=== PATIENT | female | born 1965 | race Caucasian/White ===

== ENCOUNTER 2019-10-22 15:06 | Outpatient (CLI) | payer SELFPAY ==
--- NOTE | 2019-10-22 15:12 | MM_ITS ---
WS: [id number] BILATERAL SCREENING DIGITAL MAMMOGRAM WITH CAD HISTORY: SCREENING COMPARISON: 12/24/2016 and 11/29/2015 Bilateral CC and MLO views submitted. Computer aided detection analyzed. Breast composition: There are scattered areas of fibroglandular density. No suspicious masses, microc alcifications or architectural distortion. MM/[place] [id number] IMPRESSION: BI-RADS: 1-Negative FOLLOW UP: 1 Year Follow-up
== END 2019-10-22 15:07 | disposition home or self-care (01) ==
LOC: RADSHAW 15:11
PROVIDERS: PCP Internal Medicine; Visit Provider Internal Medicine
DX: Z12.31 Encounter for screening mammogram for malignant neoplasm of breast (principal)
CPT/HCPCS: 77067

== ENCOUNTER 2020-02-22 16:03 | Emergency (ER) | payer SELFPAY ==
[2020-02-22 16:09] VITALS: BP 193/90; PULSE 122; RESP 16; TEMP 36.2; O2SAT 96; BMI 32.2
--- NOTE | 2020-02-22 18:54 | XR_ITS ---
WS: [id number] Portable AP upright chest, 02/22/2020 portable chest, 03/03/2018. Clinical Data: Altered mental status Comparison: None. Findings: No nodules, masses or effusions are seen. The heart is normal. The pulmonary vascularity is not increased. No pneumonia or pneumothorax is seen. Monitor leads are on the chest wall XR/XR chest 1V portable [id number] Impression: Negative chest.
--- NOTE | 2020-02-22 18:55 | ECG_ITS ---
[facility] Test Date: 2020-02-22 Pat Name: Sruthi Wright Department: Room: Gender: Female Manager Ecommerce: : 1965 Requested By: Ofelia Villeda Order Number: [id number] Marks MD: Reji Espinoza M.D. Measurements Intervals [place] Rate: 100 P: 23 [place]: 148 QRS: -5 QRSD: 109 T: 32 QT: 338 QTc: 437 Interpretive Statements SINUS TACHYCARDIA Compared to ECG 03/04/2018 00:18:12 Sinus rhythm no longer present Electronically Signed On 02-23-2020 10:17:28 MEDICAL TECH by Reji Espinoza M.D. [id number]
--- NOTE | 2020-02-22 18:57 | W.ED.ANXIETY ---
HPI - Anxiety General: Chief Complaint: Anxiety Stated Complaint: Numbness/Emotional/AMS Time Seen by Provider: 02/22/20 18:54 Source: patient Mode of arrival: ambulatory Limitations: no limitations History of Present Illness: HPI narrative: Sruthi is a very nice 54-year-old female who comes in complaining of confusion. Her rtampujg-ks-own is with her who states that the patient has been confused all day and it is progressively getting worse. She has been confused at different times to person, place and time. They have noticed her blood sugars been running elevated today. Patient states she is feeling very upset and emotional. She states she wants to cry all the time but cannot say why. She denies any physical plaints such as chest pain, shortness of breath, back pain, flank pain, headache, neck pain or stiffness or any other focal complaint. Patient was fine and her normal state of health yesterday. Patient has no other complaints at this time. Associated symptoms: Reports confusion; Deny chest pain, chills, diaphoresis, fever(s), headache(s), malaise, nausea, palpitations, syncope or vomiting Review of Systems Const: Denies: fever(s), chills, body aches, fatigue, malaise or diaphoresis Eyes: Denies: change in vision, blurry vision, photophobia, eye discomfort, eye discharge, eye redness or yellow eyes ENMT: Denies: throat pain, odynophagia, hoarseness, swelling of lips/tongue, ear or mastoid pain, ear discharge, change in hearing or nasal discharge Card: Denies: chest pain, palpitations, irregular heart rhythm, edema, lightheadedness, syncope, pre-syncope, dyspnea on exertion or orthopnea Resp: Denies: dyspnea, productive cough, non-productive cough, wheezing, hemoptysis or chest congestion GI: Denies: abdominal pain, nausea, vomiting, hematemesis, coffee ground emesis, heartburn, diarrhea, constipation, GI cramping, hematochezia or melena : Denies: flank pain, dysuria, urinary frequency, urinary urgency or hematuria Musc: Denies: neck pain, back pain, extremity pain, extremity swelling, joint pain, joint swelling, joint redness, joint warmth or joint stiffness Skin/Breast: Denies: rash, pruritus, erythema, skin pain or skin tenderness Neuro: Reports: confusion; Denies: headache(s), numbness in extremities, weakness in extremities, sensory changes, lack of coordination, difficulty walking, dizziness, vertigo, Slurred speech present or seizure-like activity Damián/Lymph: Denies: easy bruising, easy bleeding, petechiae, purpura or enlarged lymph nodes All/Imm: Denies: urticaria, throat swelling, tongue swelling, facial swelling or acute wheezing PFSH ED PFSH: Medical History Chronic low back pain CKD (chronic kidney disease) Depression DM type 2 (diabetes mellitus, type 2) GERD (gastroesophageal reflux disease) Hyperlipidemia Hypertension Osteoarthritis Pseudotumor cerebri Physical Exam Const: COMMON NORMALS: no acute distress, patient oriented x3, no limitations and alert GENERAL APPEARANCE: cooperative HENMT: COMMON NORMALS: normocephalic, atraumatic, external ears normal, EAC's normal and Normal external nose present HEAD & SCALP: normal to inspection, normocephalic and atraumatic FACE & SINUS: normal facial exam and face symmetric NOSE: Normal external nose present and Normal nares present EXTERNAL EAR: Yes external ears normal EXTERNAL AUDITORY CANAL: EAC's normal MOUTH: Normal oral and palatal mucosa present, lip normal and tongue normal Eye: COMMON NORMALS: Equal, round and reactive pupils present and conjunctivae normal GENERAL EYE: appearance normal, both eyes and all related structures ALIGNMENT: Yes alignment normal PERIORBITAL: periorbital findings normal EYELID: eyelids normal CONJUNCTIVA: Yes conjunctivae normal SCLERA: sclerae normal PUPIL: Yes Equal, round and reactive pupils present Neck/C-Spine: COMMON NORMALS: full ROM, no lymphadenopathy, supple, no meningeal signs and no JVD GENERAL: Yes normal visual inspection and Yes trachea midline Chest: COMMONS NORMALS: normal inspection of the chest and normal palpation of entire chest wall Resp: COMMON NORMALS: normal respiratory effort, No retractions, No use of accessory muscles and clear to auscultation bilaterally EFFORT & INSPECTION: Yes able to speak in complete sentences and Yes symmetric chest movement AUSCULTATION: clear to auscultation bilaterally, no crackles, no rales, no rhonchi and no wheezes Cardio: COMMON NORMALS: no JVD, regular rate, regular rhythm, S1 normal heart sound present and S2 normal heart sound present RATE: regular rate RHYTHM: regular rhythm HEART SOUNDS: S1 normal heart sound present, S2 normal heart sound present, no click, no gallops, no murmurs and no rubs GI: COMMON NORMALS: Soft to palpation and No hepatosplenomegaly present PALPATION: Yes Soft to palpation, No Tenderness to palpation present (GI), No Guarding due to palpation present (GI), No Rigid due to palpation, Yes No hepatosplenomegaly present, No Hernia present, No Palpable mass present and No Pulsatile mass present : COMMON NORMALS: Yes no CVA tenderness BLADDER/KIDNEY EXAM: Yes no CVA tenderness EXTERNAL FEMALE EXAM: No Hernia present Back/Pelvis: COMMON NORMALS: no CVA tenderness, thoracic and lumbar spine normal to inspection, no thoracic nor lumbar tenderness and thoraco-lumbar ROM normal Extremity: COMMON NORMALS: normal to inspection, full ROM, capillary refill normal, no joint enlargement, no clubbing, cyanosis or edema and no calf tenderness Neuro: COMMON NORMALS: patient oriented x3, CN's II-XII intact bilaterally, moves all extremities, no focal motor deficits and no sensory deficits noted SENSORIUM/ORIENTATION: Yes alert MENINGEAL SIGNS: Yes no meningeal signs SPEECH: speech normal Psych: COMMON NORMALS: mental status grossly normal, Normal thought process present, cooperative, normal affect, speech normal and activity/motor behavior normal SPEECH: Yes normal speech THOUGHT PROCESS: Normal thought process present Skin: COMMON NORMALS: no rashes or lesions noted, turgor normal, no jaundice, no petechiae and no mottling GENERAL SKIN EXAM: no rashes or lesions noted and turgor normal Procedures Lumbar Puncture Time Out Performed: Yes Patient Position: upright Skin Prep: Povidone-Iodine 1% Local Anesthetic: lidocaine 1% Amount of anesthesia used (mL): 3 Spinal Needle Gauge: 22G Interspace Used: L4-L5 Fluid Initially Obtained: clear Complications: none Course Vital Signs: Vital signs: Vital Signs Temperature 97.2 F L 02/22/20 16:09 Pulse Rate 87 02/23/20 01:09 Respiratory Rate 20 H 02/22/20 19:42 Blood Pressure 148/90 02/23/20 01:09 Pulse Oximetry 96 02/23/20 01:09 MDM - Anxiety MDM Narrative: Medical decision making narrative: Mrs. Wright is a nice 54-year-old female who comes in today with confusion. Infusion consisted of she feeling like she was in a fog . Also consisted of saying things are inappropriate, having a hard time understanding how to perform actions and being confused to place and time according to family. The patient symptoms have resolved while she has been here in the ER. Other than a slightly elevated lactate at 3.2 which I believe is likely due to her Metformin no other cause of infection or issue can be seen. The patient stated she may have had a brief headache earlier today so I performed a spinal tap to evaluate for meningitis or encephalitis but she has no white or red cells on her fluid analysis. CT scan of the head is normal. NIH stroke scale is 0. Patient shows no sign of acute cardiac event. I see no sign of toxicologic issue. Ultimately the patient is feeling better and is back to normal. I reviewed the case with Dr. Grant configuration management analyst for Dr. Rutherofrd and she assures me the patient can be rechecked tomorrow. Patient agrees to return here should her symptoms change or worsen but at this time she is feeling better and would like to go home. On repeat exam the patient has a normal mental status with a GCS of 15. I see no sign of encephalitis, meningitis, stroke, cardiac event, toxicologic, endocrine or other acute life-threatening event to cause her transient mental status changes. I did discuss with the patient and her hfbhzdfq-jw-coh that this still could be something early and if her symptoms return or change in any way she needs to return here immediately and they understand and agree to do so. Imaging Data^: CT Head: Radiologist's impression: [place] [address] CT Scan Report Signed Patient: Sruthi Wright Unit #: [id number] : 1965 Age/Sex: 54 / F ADM Date: 02/22/20 Loc: ER Room/Bed: Attending Dr: Ordering Provider/Ordering MD: Ofelia Mann DO Date of Service: 02/22/20 Procedure(s): CT head wo con* [id number] Accession Number(s): [id number] Report Number: [id number] PROCEDURE INFORMATION: Exam: CT Head Without Contrast Exam date and time: 02/22/2020 7:18 PM Age: 54 years old Clinical indication: Altered mental status/memory loss TECHNIQUE: Imaging protocol: Computed tomography of the head without contrast. Radiation optimization: All CT scans at this facility use at least one of these dose optimization techniques: automated exposure control; mA and/or kV adjustment per patient size (includes targeted exams where dose is matched to clinical indication); or iterative reconstruction. COMPARISON: CT head wo con* [id number] 03/18/2016 6:28 PM RADIATION DOSE METRICS: Total DLP (mGy-cm): 810.16 FINDINGS: Brain: Unremarkable. No hemorrhage. No significant white matter disease. No edema. Cerebral ventricles: No ventriculomegaly. Bones/joints: Unremarkable. No acute fracture. Paranasal sinuses: Visualized sinuses are unremarkable. No fluid levels. Mastoid air cells: Unremarkable as visualized. No mastoid effusion. Soft tissues: Unremarkable. CT/CT head wo con* [id number] IMPRESSION: 1. No acute intracranial abnormality demonstrated. 2. No new abnormality demonstrated, when compared to the prior study. Radiation Dose CTDIVOL = (mGy): DLP = 810.16 (mGy-cm) Dictated By: Milad Das MD Signed By: Milad Das MD Signed Date/Time: 02/22/202014 DD/ 12 CXR: Attestation: I personally reviewed and interpreted this imaging study as follows: My impression: No acute cardiopulmonary findings. EKG Data^: EKG 1: Attestation: I personally reviewed and interpreted this EKG as follows: EKG interpretation date: 02/22/20 EKG interpretation time: 19:28 Interpretation: Head CT 02/22/20 18:56 IMPRESSION: 1. No acute intracranial abnormality demonstrated. 2. No new abnormality demonstrated, when compared to the prior study. Radiation Dose CTDIVOL = (mGy): DLP = 810.16 (mGy-cm) Sinus tachycardia at 100 beats a minute, left axis deviation, borderline LVH, nonspecific anterior precordial lead changes. Findings similar to previous. Other EKG comments: Head CT 02/22/20 18:56 IMPRESSION: 1. No acute intracranial abnormality demonstrated. 2. No new abnormality demonstrated, when compared to the prior study. Radiation Dose CTDIVOL = (mGy): DLP = 810.16 (mGy-cm) EKG 2: Attestation: I personally reviewed and interpreted this EKG as follows: EKG interpretation date: 02/22/20 EKG interpretation time: 22:53 Interpretation: Head CT 02/22/20 18:56 IMPRESSION: 1. No acute intracranial abnormality demonstrated. 2. No new abnormality demonstrated, when compared to the prior study. Radiation Dose CTDIVOL = (mGy): DLP = 810.16 (mGy-cm) Normal sinus rhythm at 83 beats a minute, no blocks, nonspecific interventricular conduction delay, no acute ST-T wave changes. Other EKG comments: Head CT 02/22/20 18:56 IMPRESSION: 1. No acute intracranial abnormality demonstrated. 2. No new abnormality demonstrated, when compared to the prior study. Radiation Dose CTDIVOL = (mGy): DLP = 810.16 (mGy-cm) Lab Data: Attestation: I reviewed the patient's lab results. Labs: Lab Results 02/22/20 02/22/20 02/22/20 Range/Units 19:15 19:15 19:15 WBC 8.3 (4.0-10.0) 10^3/ uL RBC 4.44 (4.1-5.3) 10^6/u L Hgb 12.5 (11.5-15.3) g/dL Hct 39.8 (37.0-47.0) % MCV 89.6 (81-99) fL MCH 28.2 (28.0-34.0) pg MCHC 31.4 (30.0-36.0) g/dL RDW 14.9 (12.1-15.1) % Plt Count 241 (130-400) 10^3/c mm MPV 11.6 H (7.4-10.4) fL Neut % (Auto) 60.3 % Lymph % (Auto) 30.2 % [place] % (Auto) 5.6 % Eos % (Auto) 2.8 % Baso % (Auto) 0.4 % Neut # (Auto) 4.98 (1.8-7.7) 10^3/u L Lymph # (Auto) 2.5 (0.8-4.8) 10^3/u L [place] # (Auto) 0.5 (0.2-0.9) 10^3/u L Eos # (Auto) 0.2 (0.0-0.8) 10^3/u L Baso # (Auto) 0.0 (0.0-0.1) 10^3/u L Nucleated RBC % (a uto) 0 % Nucleated RBCs # 0.0 /100WBC Sodium 141 (136-145) mmol/L Potassium 3.9 (3.5-5.1) mmol/L Chloride 104 (98-107) mmol/L Carbon Dioxide 22 (22-29) mmol/L Anion Gap 18.9 (5-19) BUN 19 (6-20) mg/dL Creatinine 0.6 (0.5-0.9) mg/dL GFR Calculation 104.2 (90-130) mL/min Glucose 241 H (65-115) mg/dL Calculated Osmolal ity 302 H (285-295) mOsm/k g Lactic Acid (0.5-2.2) mmol/L Calcium 9.8 (8.5-10.5) mg/dL Magnesium 1.4 L (1.7-2.3) mg/dL Total Bilirubin 0.2 (0.15-1.2) mg/dL AST 29 (0-32) U/L ALT 29 (0-33) U/L Alkaline Phosphata se 83 (35-105) IU/L Ammonia 27 (11-51) umol/L Troponin T Baselin e (0-10) ng/L Troponin T 120 Min yuhaaviatam (0-10) ng/L Delta Troponin T (0-10) ABS# Total Protein 7.3 (6.6-8.7) g/dL Albumin 4.5 (3.5-5.2) g/dL Globulin 2.8 (1.3-4.6) g/dL TSH 3.00 (0.27-4.20) uIU/ mL Urine Color (Yellow) Urine Appearance (CLEAR) Urine pH (5-7) Ur Specific Gravit y (1.005-1.030) Urine Protein (Negative) Urine Glucose (UA) (Normal) Urine Ketones (Negative) Urine Blood (Negative) Urine Nitrate (Negative) Urine Bilirubin (Negative) Urine Urobilinogen (Negative) mg/dL Ur Leukocyte Telma ase (Negative) Urine RBC (0-2) /hpf Urine WBC (0-5) /hpf Ur Squamous Epith Cells (0-5) /hpf Amorphous Sediment Urine Bacteria (NONE) /hpf CSF Appearance (CLEAR) CSF Color (COLORLESS) CSF WBC (0-5) /uL CSF RBC (0-0) 10^3/uL CSF Mononuclear # Auto (50-90) 10^3/uL CSF Mononuclear WB Cs % (50-90) % CSF Polynuclear WB Cs # (0-10) 10^3/uL CSF Polynuclear WB Cs % (0-10) % CSF Diff Comment CSF Glucose (40-70) mg/dL CSF Lactate mmol/L CSF Total Protein (15-45) mg/dL Ethyl Alcohol < 10 (0-10) mg/dL 02/22/20 02/22/20 02/22/20 Range/Units 19:15 19:15 19:15 WBC (4.0-10.0) 10^3/ uL RBC (4.1-5.3) 10^6/u L Hgb (11.5-15.3) g/dL Hct (37.0-47.0) % MCV (81-99) fL MCH (28.0-34.0) pg MCHC (30.0-36.0) g/dL RDW (12.1-15.1) % Plt Count (130-400) 10^3/c mm MPV (7.4-10.4) fL Neut % (Auto) % Lymph % (Auto) % [place] % (Auto) % Eos % (Auto) % Baso % (Auto) % Neut # (Auto) (1.8-7.7) 10^3/u L Lymph # (Auto) (0.8-4.8) 10^3/u L [place] # (Auto) (0.2-0.9) 10^3/u L Eos # (Auto) (0.0-0.8) 10^3/u L Baso # (Auto) (0.0-0.1) 10^3/u L Nucleated RBC % (a uto) % Nucleated RBCs # /100WBC Sodium (136-145) mmol/L Potassium (3.5-5.1) mmol/L Chloride (98-107) mmol/L Carbon Dioxide (22-29) mmol/L Anion Gap (5-19) BUN (6-20) mg/dL Creatinine (0.5-0.9) mg/dL GFR Calculation (90-130) mL/min Glucose (65-115) mg/dL Calculated Osmolal ity (285-295) mOsm/k g Lactic Acid 3.2 H (0.5-2.2) mmol/L Calcium (8.5-10.5) mg/dL Magnesium (1.7-2.3) mg/dL Total Bilirubin (0.15-1.2) mg/dL AST (0-32) U/L ALT (0-33) U/L Alkaline Phosphata se (35-105) IU/L Ammonia (11-51) umol/L Troponin T Baselin e 9 (0-10) ng/L Troponin T 120 Min yuhaaviatam (0-10) ng/L Delta Troponin T (0-10) ABS# Total Protein (6.6-8.7) g/dL Albumin (3.5-5.2) g/dL Globulin (1.3-4.6) g/dL TSH (0.27-4.20) uIU/ mL Urine Color Yellow (Yellow) Urine Appearance Clear (CLEAR) Urine pH 5 (5-7) Ur Specific Gravit y 1.015 (1.005-1.030) Urine Protein 2+ H (Negative) Urine Glucose (UA) 4+ H (Normal) Urine Ketones Negative (Negative) Urine Blood Neg (Negative) Urine Nitrate Negative (Negative) Urine Bilirubin Neg (Negative) Urine Urobilinogen Norm (Negative) mg/dL Ur Leukocyte Telma ase Negative (Negative) Urine RBC None (0-2) /hpf Urine WBC None (0-5) /hpf Ur Squamous Epith Cells None (0-5) /hpf Amorphous Sediment Not Reportable Urine Bacteria None (NONE) /hpf CSF Appearance (CLEAR) CSF Color (COLORLESS) CSF WBC (0-5) /uL CSF RBC (0-0) 10^3/uL CSF Mononuclear # Auto (50-90) 10^3/uL CSF Mononuclear WB Cs % (50-90) % CSF Polynuclear WB Cs # (0-10) 10^3/uL CSF Polynuclear WB Cs % (0-10) % CSF Diff Comment CSF Glucose (40-70) mg/dL CSF Lactate mmol/L CSF Total Protein (15-45) mg/dL Ethyl Alcohol (0-10) mg/dL 02/22/20 02/22/20 02/22/20 Range/Units 21:00 21:36 23:10 WBC (4.0-10.0) 10^3/ uL RBC (4.1-5.3) 10^6/u L Hgb (11.5-15.3) g/dL Hct (37.0-47.0) % MCV (81-99) fL MCH (28.0-34.0) pg MCHC (30.0-36.0) g/dL RDW (12.1-15.1) % Plt Count (130-400) 10^3/c mm MPV (7.4-10.4) fL Neut % (Auto) % Lymph % (Auto) % [place] % (Auto) % Eos % (Auto) % Baso % (Auto) % Neut # (Auto) (1.8-7.7) 10^3/u L Lymph # (Auto) (0.8-4.8) 10^3/u L [place] # (Auto) (0.2-0.9) 10^3/u L Eos # (Auto) (0.0-0.8) 10^3/u L Baso # (Auto) (0.0-0.1) 10^3/u L Nucleated RBC % (a uto) % Nucleated RBCs # /100WBC Sodium (136-145) mmol/L Potassium (3.5-5.1) mmol/L Chloride (98-107) mmol/L Carbon Dioxide (22-29) mmol/L Anion Gap (5-19) BUN (6-20) mg/dL Creatinine (0.5-0.9) mg/dL GFR Calculation (90-130) mL/min Glucose (65-115) mg/dL Calculated Osmolal ity (285-295) mOsm/k g Lactic Acid 2.1 (0.5-2.2) mmol/L Calcium (8.5-10.5) mg/dL Magnesium (1.7-2.3) mg/dL Total Bilirubin (0.15-1.2) mg/dL AST (0-32) U/L ALT (0-33) U/L Alkaline Phosphata se (35-105) IU/L Ammonia (11-51) umol/L Troponin T Baselin e (0-10) ng/L Troponin T 120 Min yuhaaviatam 9.66 (0-10) ng/L Delta Troponin T 0.66 (0-10) ABS# Total Protein (6.6-8.7) g/dL Albumin (3.5-5.2) g/dL Globulin (1.3-4.6) g/dL TSH (0.27-4.20) uIU/ mL Urine Color (Yellow) Urine Appearance (CLEAR) Urine pH (5-7) Ur Specific Gravit y (1.005-1.030) Urine Protein (Negative) Urine Glucose (UA) (Normal) Urine Ketones (Negative) Urine Blood (Negative) Urine Nitrate (Negative) Urine Bilirubin (Negative) Urine Urobilinogen (Negative) mg/dL Ur Leukocyte Telma ase (Negative) Urine RBC (0-2) /hpf Urine WBC (0-5) /hpf Ur Squamous Epith Cells (0-5) /hpf Amorphous Sediment Urine Bacteria (NONE) /hpf CSF Appearance Clear (CLEAR) CSF Color Colorless (COLORLESS) CSF WBC 0 (0-5) /uL CSF RBC 0 (0-0) 10^3/uL CSF Mononuclear # Auto 0.000 L (50-90) 10^3/uL CSF Mononuclear WB Cs % 0 L (50-90) % CSF Polynuclear WB Cs # 0.000 (0-10) 10^3/uL CSF Polynuclear WB Cs % 0 (0-10) % CSF Diff Comment Yes CSF Glucose 145 H (40-70) mg/dL CSF Lactate 3.2 mmol/L CSF Total Protein 34 (15-45) mg/dL Ethyl Alcohol (0-10) mg/dL Discharge Plan Discharge Patient Disposition: Home Clinical Impression: Altered mental status Qualifiers: Altered mental status type: unspecified Qualified Code(s): R41.82 - Altered mental status, unspecified Condition: Stable Prescriptions: No Action Lantus U-100 Insulin 100 unit/mL Solution 25 unit SUBCUT BEDTIME RF: 0 tizanidine 2 mg tablet 4 mg PO BEDTIME RF: 0 aspirin 325 mg Tablet 325 mg PO DAILY RF: 0 simvastatin 40 mg Tablet 40 mg PO DAILY RF: 0 losartan 25 mg tablet 25 mg PO DAILY RF: 0 gabapentin 300 mg capsule 300 mg PO DAILY RF: 0 fluoxetine 20 mg capsule 20 mg PO DAILY RF: 0 metformin 500 mg tablet extended release 24 hr 500 mg PO BID RF: 0 loratadine 10 mg Tablet 10 mg PO DAILY RF: 0 Complete Multivitamin Tablet 1 tab PO DAILY RF: 0 Vitamin D3 25 mcg (1,000 unit) Tablet 25 mcg PO DAILY RF: 0 Fish Oil 500 mg Capsule 500 mg PO DAILY RF: 0 esomeprazole magnesium 20 mg Tablet,Delayed Release (Dr/Ec) 20 mg PO DAILY RF: 0 Discharge Orders: Discharge Order (Routine); Ordered 02/23/20 Ordered By: Ofelia Mann Referrals: Filiberto Rutherford DO [Primary Care Provider] - 1-3 days Discharge Diet: Usual diet Discharge Activity: Limit activity as instructed Patient Instructions: Altered Mental Status (ED) Activity Restrictions/Additional Instructions: Please return to the ER immediately for any of the signs or symptoms listed on your discharge instruction sheets, worsening/changing of your symptoms, you are not getting better as quickly as expected, or for ANY other cause or concerns. A definitive cause for your confusion has not been determined. Although you are back to normal now your symptoms may return and if they do or you develop any new signs or symptoms please return to the ER immediately for recheck. Be certain to call Dr. Rutherford's office first thing in the morning as I have reviewed your case with Dr. Grant and she assures me that you will be able to be reevaluated by Dr. Rutherford or someone in the office tomorrow. If your symptoms return or worsen before then return to the ER for recheck. Coding Level of Care Code ED Crm System Administrator for Martín Humphreys Exam Comprehensive NIH stroke score NIHSS Level Of Consciousness - 1a: 0 Level Of Consciousness Questions - 1b: Both Correct Level Of Consciousness Commands - 1c: Both Correct Best Gaze - 2: Normal Visual [place]ory - 3: No Visual Loss Facial Palsy - 4: Normal Motor Arm Right - 5: No Drift Motor Arm Left - 5: No Drift Motor Leg Right - 6: No Drift Motor Leg Left - 6: No Drift Limb Ataxia - 7: Absent Sensory - 8: Normal Best Language - 9: No Aphasia Dysarthia - 10: Normal Extinction And Inattention - 11: 0 Score Total Score: 0
[2020-02-22 19:30] LABS: Basophils % 0.4 %; Eosinophils # 0.2 10^3/uL (0.0-0.8); Eosinophils % 2.8 %; Hematocrit 39.8 % (37.0-47.0); Hemoglobin 12.5 g/dL (11.5-15.3); Lymphocytes # 2.5 10^3/uL (0.8-4.8); Lymphocytes % 30.2 %; Mean Corpuscular HGB Conc 31.4 g/dL (30.0-36.0); Mean Corpuscular Hemoglobin 28.2 pg (28.0-34.0); Mean Corpuscular Volume 89.6 fL (81-99); Mean Platelet Volume 11.6 fL (7.4-10.4); Monocytes # 0.5 10^3/uL (0.2-0.9); Monocytes % 5.6 %; Neutrophils # 4.98 10^3/uL (1.8-7.7); Neutrophils % 60.3 %; Nucleated Red Blood Cells % 0 %; Platelet Count 241 10^3/cmm (130-400); Red Blood Count 4.44 10^6/uL (4.1-5.3); Red Cell Distribution Width 14.9 % (12.1-15.1); White Blood Count 8.3 10^3/uL (4.0-10.0)
[2020-02-22 19:42] VITALS: BP 146/90; PULSE 96; RESP 20; O2SAT 97
[2020-02-22] MEDS: sodium chloride 0.9% 1,000 ML 100 ML IV (19:51)
[2020-02-22 19:54] LABS: Protein Urine 2+ (Negative); Specific Gravity, Urine 1.015 (1.005-1.030); Urine Appearance Clear (CLEAR); Urine Color Yellow (Yellow); pH Urine 5 (5-7)
[2020-02-22 19:55] LABS: Bilirubin Urine Neg (Negative); Blood Urine Neg (Negative); Glucose Urine UA 4+ (Normal); Ketones Urine Negative (Negative); Leukocyte Esterase Urine Negative (Negative); Nitrate Urine Negative (Negative); Urobilinogen Urine Norm (Negative)
[2020-02-22 19:56] LABS: Lactic Sepsis W/Reflex 3.2 mmol/L (0.5-2.2)
[2020-02-22 19:57] LABS: Ammonia 27 umol/L (11-51)
[2020-02-22 19:59] LABS: Troponin(5th) Baseline 9 ng/L (0-10)
[2020-02-22 20:09] LABS: Alanine Aminotransferase 29 U/L (0-33); Albumin Level 4.5 g/dL (3.5-5.2); Alkaline Phosphatase 83 IU/L (35-105); Anion Gap 18.9 (5-19); Aspartate Amino Transferase 29 U/L (0-32); Blood Urea Nitrogen 19 mg/dL (6-20); Calcium 9.8 mg/dL (8.5-10.5); Carbon Dioxide 22 mmol/L (22-29); Chloride 104 mmol/L (98-107); Globulin 2.8 g/dL (1.3-4.6); Glomerular Filtration Rate 104.2 mL/min (90-130); Glucose 241 mg/dL (65-115); Magnesium 1.4 mg/dL (1.7-2.3); Osmolality Calculated 302 mOsm/kg (285-295); Potassium 3.9 mmol/L (3.5-5.1); Sodium 141 mmol/L (136-145); Total Bilirubin 0.2 mg/dL (0.15-1.2); Total Protein 7.3 g/dL (6.6-8.7)
[2020-02-22 20:12] LABS: Add Urine Culture? No
[2020-02-22 20:14] LABS: Alcohol Level < 10 mg/dL (0-10)
--- NOTE | 2020-02-22 20:55 | ECG_ITS ---
[facility] Test Date: 2020-02-22 Pat Name: Sruthi Wright Department: Room: Gender: Female Public Transportation Inspector: : 1965 Requested By: Ofelia Villeda Order Number: [id number] Kendrick MD: Reji Espinoza M.D. Measurements Intervals [place] Rate: 83 P: 60 [place]: 185 QRS: 17 QRSD: 114 T: 51 QT: 381 QTc: 449 Interpretive Statements SINUS RHYTHM MODERATE INTRAVENTRICULAR CONDUCTION DELAY [110+ ms QRS DURATION] Compared to ECG 02/22/2020 19:28:42 Intraventricular conduction delay now present Sinus tachycardia no longer present Myocardial infarct finding no longer present Electronically Signed On 02-23-2020 10:20:15 BOOK CUTTER by Reji Espinoza M.D. [id number]
[2020-02-22] MEDS: magnesium sulfate premix 2 GM/50 ML PIGGYBACK IV (20:59)
[2020-02-22 21:00] VITALS: BP 172/91; PULSE 97; O2SAT 97
[2020-02-22] MEDS: LORazepam 2 mg/mL INJ 1 mL 1 MG IVP (21:02)
[2020-02-22 21:17] LABS: Reflex Lactate Order REFLEX LACTIC ORDERD
[2020-02-22 21:25] LABS: Troponin 5 2HR 9.66 ng/L (0-10); Troponin 5 2HR Delta 0.66 ABS# (0-10)
[2020-02-22 21:54] LABS: Red Blood Cell CSF 0 10^3/uL (0-0); White Blood Cell CSF 0 /uL (0-5)
[2020-02-22 22:12] VITALS: BP 152/87; PULSE 89; O2SAT 97
[2020-02-22 22:12] LABS: Mononuclear WBC CSF % 0 % (50-90); Polynuclear WBC CSF % 0 % (0-10)
[2020-02-22 22:15] LABS: Appearance CSF CLEAR (CLEAR); Color CSF COLORLESS (COLORLESS)
[2020-02-22 22:16] LABS: Pathology Referral Yes; RBC Side Within 10% 0; WBC Within 10% 0
[2020-02-22 22:52] LABS: Glucose CSF 145 mg/dL (40-70); Total Protein CSF 34 mg/dL (15-45)
[2020-02-22 22:57] LABS: Lactate CSF 3.2 mmol/L
[2020-02-22] MEDS: sodium chloride 0.9% 1,000 ML 999 ML IV (23:22)
[2020-02-22 23:23] VITALS: BP 158/91; PULSE 90; O2SAT 96
[2020-02-23 00:10] LABS: Lactic Sepsis W/Reflex 2.1 mmol/L (0.5-2.2)
[2020-02-23 01:09] VITALS: BP 148/90; PULSE 87; O2SAT 96
[2020-02-23 06:26] LABS: Amphetamines Screen Urine Negative (Negative); Barbiturates Screen Urine Negative (Negative); Benzodiazepines Screen Urine Negative (Negative); Cocaine Screen Urine Negative (Negative); Opiate Screen Urine Negative (Negative); PCP Screen Urine Negative (Negative); THC Screen Urine Negative (Negative)
[2020-02-26 15:03] LABS: HSV 1 DNA NOT DETECTED; HSV 2 DNA NOT DETECTED; HSV Source CEREBROSPINAL FLUID
== END 2020-02-23 01:14 | disposition home or self-care (01) ==
PROVIDERS: Emergency Provider Emergency Medicine; PCP Internal Medicine
DX: R41.82 Altered mental status, unspecified (principal); Z79.4 Long term (current) use of insulin; Z79.82 Long term (current) use of aspirin; E11.9 Type 2 diabetes mellitus without complications; E78.5 Hyperlipidemia, unspecified; I10 Essential (primary) hypertension
CPT/HCPCS: 12345; 62270; 70450; 71045; 80053; 80306; 80307; 80500; 81001; 82140; 82945; 83605; 83735; 84157; 84443; 84484; 85025; 87040; 87070; 87075; 87205; 87530; 89050; 93005; 96361; 96365; 96375; 99283; 99284; J2060; J3475; J7030

== ENCOUNTER 2020-02-25 12:07 | Emergency (ER) | payer SELFPAY ==
[2020-02-25 12:21] VITALS: BP 163/76; PULSE 101; RESP 18; TEMP 37; O2SAT 96; BMI 32.5
[2020-02-25] MEDS: diphenhydrAMINE 50 mg/mL SDV 1mL IVP (15:57)
[2020-02-25] MEDS: ketorolac 30 mg/mL INJ 15 MG IVP (15:59)
[2020-02-25 16:05] VITALS: RESP 16; O2SAT 96
[2020-02-25] MEDS: morphine 4 mg/mL SDV 1 mL IVP (16:05)
[2020-02-25] MEDS: sodium chloride 0.9% 1,000 ML 999 ML IV (16:06)
--- NOTE | 2020-02-25 16:48 | ED_ITS ---
Documented by User: Donna Reyna 02/26/20 07:10 HPI - Headache General: Chief Complaint: Headache Stated Complaint: HEADACHE Time Seen by Provider: 02/25/20 13:45 Source: patient Mode of arrival: ambulatory Limitations: no limitations History of Present Illness: MD elicited complaint: headache Onset (ago): day(s) (1) Onset description: gradually Location: diffuse Severity: moderate Quality & Timing: throbbing and squeezing Exacerbating factors: none Relieving factors: nothing Context: other (Pt had lumbar puncture yesterday started after that. Pt states this happens when she has had LPs in the past) Associated symptoms: Reports lightheadedness, nausea, photophobia and sound sensitivity; Deny chest pain, confusion, cough, diaphoresis, eye pain, eye redness, fever(s), loss of vision, malaise, neck stiffness, numbness, paresthesias, pre-syncope, rash, seizures, short of breath, syncope, vomiting or weakness Treatments prior to arrival: none Review of Systems Const: Denies: fever(s), malaise or diaphoresis Card: Reports: lightheadedness; Denies: chest pain, syncope or pre-syncope Resp: Denies: dyspnea, productive cough or wheezing GI: Reports: nausea; Denies: abdominal pain or vomiting Skin/Breast: Denies: rash Neuro: Reports: headache(s) and dizziness; Denies: numbness in extremities, weakness in extremities, sensory changes, lack of coordination, difficulty walking, frequent falls, vertigo, confusion, behavioral changes, Slurred speech present, difficulty communicating thoughts, seizure-like activity, involuntary movements or restless legs Psych: Denies: suicidal ideation or homicidal ideation [facility] ED PFSH: Medical History Chronic low back pain CKD (chronic kidney disease) Depression DM type 2 (diabetes mellitus, type 2) GERD (gastroesophageal reflux disease) Hyperlipidemia Hypertension Osteoarthritis Pseudotumor cerebri Physical Exam Const: COMMON NORMALS: no acute distress, patient oriented x3, no limitations and alert ORIENTATION/CONSCIOUSNESS: Yes oriented to person, Yes oriented to place and Yes oriented to time HENMT: COMMON NORMALS: normocephalic, atraumatic, hearing grossly normal bilaterally and Normal external nose present HEAD & SCALP: normal to inspection, normocephalic and atraumatic FACE & SINUS: normal facial exam, sinuses nontender and face symmetric NOSE: Normal external nose present MOUTH: Normal oral and palatal mucosa present, lip normal and tongue normal THROAT: posterior oropharynx normal Eye: COMMON NORMALS: Equal, round and reactive pupils present, EOMs intact bilaterally, conjunctivae normal, no scleral icterus, no papilledema and normal visual haskins by confrontation GENERAL EYE: appearance normal, both eyes and all related structures and normal light reflex CONJUNCTIVA: Yes conjunctivae normal PUPIL: Yes Equal, round and reactive pupils present DIRECT OPHTHALMOSCOPY: Yes normal light reflex, Yes no papilledema and Yes photophobia Neck/C-Spine: COMMON NORMALS: full ROM, no lymphadenopathy, supple, no meningeal signs and no JVD Lymph: LYMPHATIC: no lymphadenopathy noted Chest: COMMONS NORMALS: normal inspection of the chest Resp: COMMON NORMALS: normal respiratory effort, No retractions, No use of accessory muscles and clear to auscultation bilaterally AUSCULTATION: clear to auscultation bilaterally Cardio: COMMON NORMALS: no JVD, regular rate and regular rhythm RATE: regular rate RHYTHM: regular rhythm GI: COMMON NORMALS: Normal to inspection, nondistended, normoactive bowel sounds present, Soft to palpation and non-tender PALPATION: Yes Soft to palpation : COMMON NORMALS: Yes no CVA tenderness BLADDER/KIDNEY EXAM: Yes no CVA tenderness Back/Pelvis: COMMON NORMALS: no CVA tenderness, thoracic and lumbar spine normal to inspection, no thoracic nor lumbar tenderness and thoraco-lumbar ROM normal Extremity: COMMON NORMALS: normal to inspection, full ROM and capillary refill normal Neuro: KRISS COMA SCALE: document GCS findings Kriss coma scale eye opening: Spontaneous [place] coma scale verbal response: Orientated [place] coma scale motor response: Obey commands Kriss coma scale total score: 15 COMMON NORMALS: patient oriented x3, CN's II-XII intact bilaterally, moves all extremities, no focal motor deficits and no sensory deficits noted SENSORIUM/ORIENTATION: Yes alert, Yes oriented to person, Yes oriented to place and Yes oriented to time MENINGEAL SIGNS: Yes no meningeal signs SPEECH: speech normal GAIT: Yes Normal gait present Psych: COMMON NORMALS: mental status grossly normal, Normal thought process present, cooperative, normal affect and speech normal APPEARANCE: Yes grossly normal ATTITUDE: Yes calm ACTIVITY/MOTOR BEHAVIOR: Yes appropriate eye contact SPEECH: Yes normal speech THOUGHT PROCESS: Normal thought process present Skin: COMMON NORMALS: no rashes or lesions noted, no wounds, turgor normal and no jaundice GENERAL SKIN EXAM: no rashes or lesions noted and turgor normal Course ED course: Pt has been given pain meds and IV fluids at this time. Pt is at bedside eating. Care was transferred to Cricket Anderson at 1700 02/25/2020 Vital Signs: Vital signs: Vital Signs Temperature 98.6 F 02/25/20 12:21 Pulse Rate 82 02/25/20 18:04 Respiratory Rate 18 02/25/20 18:04 Blood Pressure 153/86 02/25/20 18:04 Pulse Oximetry 96 02/25/20 18:04 Discharge Plan Discharge Patient Disposition: Home Clinical Impression: Headache Qualifiers: Headache type: unspecified Headache chronicity pattern: unspecified pattern Intractability: not intractable Qualified Code(s): R51.9 - Headache, unspecified Condition: Stable Prescriptions: New hydrocodone-acetaminophen 5-325 mg tablet 1 tab PO Q6H PRN (Reason: pain) Qty: 6 RF: 0 No Action Benadryl 1 - 2 cap PO PRN RF: 0 Lantus U-100 Insulin 100 unit/mL Solution 25 unit SUBCUT BEDTIME RF: 0 tizanidine 2 mg tablet 2 mg PO QID PRN (Reason: Muscle Spasm) RF: 0 aspirin 325 mg Tablet 325 mg PO DAILY RF: 0 simvastatin 40 mg Tablet 40 mg PO DAILY RF: 0 losartan 25 mg tablet 25 mg PO DAILY RF: 0 gabapentin 300 mg capsule 300 mg PO BID RF: 0 fluoxetine 20 mg capsule 20 mg PO DAILY RF: 0 metformin 500 mg tablet extended release 24 hr 1,000 mg PO BID RF: 0 loratadine 10 mg Tablet 10 mg PO BEDTIME RF: 0 Complete Multivitamin Tablet 1 tab PO DAILY RF: 0 cholecalciferol (vitamin D3) [Vitamin D3] 25 mcg (1,000 unit) Tablet 25 mcg PO DAILY RF: 0 Fish Oil 500 mg Capsule 500 mg PO QPM RF: 0 esomeprazole magnesium 20 mg Tablet,Delayed Release (Dr/Ec) 20 mg PO DAILY RF: 0 Discharge Orders: Discharge Order (Routine); Ordered 02/25/20 Ordered By: Kwame Anderson Referrals: Filiberto Rutherford DO [Primary Care Provider] - Discharge Diet: Usual diet Discharge Activity: Increase activity as tolerated Patient Instructions: Acute Headache (ED) Activity Restrictions/Additional Instructions: Healthy diet and exercise. Drink plenty of water. If headache returns play down flat consume plenty of caffeine and use hydrocodone for breakthrough pain. Follow-up with primary care as needed. Return to the emergency department for uncontrolled headache. 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 awaiting medication evaluation. Plan to dc after medication treatment results. wjw Vital Signs: Vital signs: Vital Signs Temperature 98.6 F 02/25/20 12:21 Pulse Rate 82 02/25/20 18:04 Respiratory Rate 18 02/25/20 18:04 Blood Pressure 153/86 02/25/20 18:04 Pulse Oximetry 96 02/25/20 18:04 MDM - Headache MDM Narrative: Medical decision making narrative: Patient had a lumbar puncture approximately 2 days ago, comes in for persistent headache that she was unable to get under control at home. On exam patient no focal neural deficits. Patient appeared well. Patient appeared in moderate pain. Patient was seen by Donna Reyna and I received patient from her on her end of shift. Patient was treated with a headache cocktail of medications and fluid. Patient had improvement of the headache. Patient was discharged home with recommendations for follow-up or return to the emergency department. Patient reported understanding. Discharge Plan Discharge Patient Disposition: Home Clinical Impression: Headache Qualifiers: Headache type: unspecified Headache chronicity pattern: unspecified pattern Intractability: not intractable Qualified Code(s): R51.9 - Headache, unspecified Condition: Stable Prescriptions: New hydrocodone-acetaminophen 5-325 mg tablet 1 tab PO Q6H PRN (Reason: pain) Qty: 6 RF: 0 No Action Benadryl 1 - 2 cap PO PRN RF: 0 Lantus U-100 Insulin 100 unit/mL Solution 25 unit SUBCUT BEDTIME RF: 0 tizanidine 2 mg tablet 2 mg PO QID PRN (Reason: Muscle Spasm) RF: 0 aspirin 325 mg Tablet 325 mg PO DAILY RF: 0 simvastatin 40 mg Tablet 40 mg PO DAILY RF: 0 losartan 25 mg tablet 25 mg PO DAILY RF: 0 gabapentin 300 mg capsule 300 mg PO BID RF: 0 fluoxetine 20 mg capsule 20 mg PO DAILY RF: 0 metformin 500 mg tablet extended release 24 hr 1,000 mg PO BID RF: 0 loratadine 10 mg Tablet 10 mg PO BEDTIME RF: 0 Complete Multivitamin Tablet 1 tab PO DAILY RF: 0 cholecalciferol (vitamin D3) [Vitamin D3] 25 mcg (1,000 unit) Tablet 25 mcg PO DAILY RF: 0 Fish Oil 500 mg Capsule 500 mg PO QPM RF: 0 esomeprazole magnesium 20 mg Tablet,Delayed Release (Dr/Ec) 20 mg PO DAILY RF: 0 Discharge Orders: Discharge Order (Routine); Ordered 02/25/20 Ordered By: Kwame Anderson Referrals: Filiberto Rutherford DO [Primary Care Provider] - Discharge Diet: Usual diet Discharge Activity: Increase activity as tolerated Patient Instructions: Acute Headache (ED) Activity Restrictions/Additional Instructions: Healthy diet and exercise. Drink plenty of water. If headache returns play down flat consume plenty of caffeine and use hydrocodone for breakthrough pain. Follow-up with primary care as needed. Return to the emergency department for uncontrolled headache. 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
[2020-02-25 17:29] VITALS: BP 152/80; PULSE 83; O2SAT 96
[2020-02-25 18:04] VITALS: BP 153/86; PULSE 82; RESP 18; O2SAT 96
== END 2020-02-25 18:07 | disposition home or self-care (01) ==
PROVIDERS: Emergency Provider Nurse Practitioner Family; PCP Internal Medicine
DX: R51.9 Headache, unspecified (principal); Z79.4 Long term (current) use of insulin; Z79.82 Long term (current) use of aspirin; E11.9 Type 2 diabetes mellitus without complications; E78.5 Hyperlipidemia, unspecified; I10 Essential (primary) hypertension
CPT/HCPCS: 12345; 96361; 96374; 96375; 99283; J1200; J1885; J2270; J7030

== ENCOUNTER 2020-02-27 12:50 | Emergency (ER) | payer SELFPAY ==
[2020-02-27 12:54] VITALS: BP 156/79; PULSE 101; RESP 18; TEMP 36.5; O2SAT 98; BMI 32.5
--- NOTE | 2020-02-27 13:55 | ECG_ITS ---
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 Measurements Intervals [place] Rate: 98 P: 24 NE: 169 QRS: -11 QRSD: 95 T: 40 QT: 337 QTc: 432 Interpretive Statements SINUS RHYTHM MODERATE VOLTAGE CRITERIA FOR LVH, CONSIDER NORMAL VARIANT [MEETS CRITERIA IN ONE OF: R(aVL), S(V1), R(V5), R(V5/V6)+S(V1)] POSSIBLE ANTERIOR MYOCARDIAL INFARCTION , OF INDETERMINATE AGE [30 ms Q WAVE IN V3/V4, OR R < 0.2 mV IN V4] Compared to ECG 02/22/2020 22:53:38 Myocardial infarct finding now present Intraventricular conduction delay no longer present Electronically Signed On 02-27-2020 21:15:21 CEMENTER HELPER by Yecenia Talbot M.D. [email or web address]
--- NOTE | 2020-02-27 13:55 | XRR_ITS ---
PROCEDURE INFORMATION: Exam: XR Chest, 1 View Exam date and time: 02/27/2020 1:58 PM Age: 54 years old Clinical indication: Chest pain; Type not specified; Additional info: Chest pain, weakness TECHNIQUE: Imaging protocol: XR of the chest Views: 1 view. COMPARISON: CR XR chest 1V portable [id number] 02/22/2020 7:25 PM FINDINGS: Lungs: Unremarkable. No consolidation. Pleural space: Unremarkable. No pleural effusion. No pneumothorax. Heart/Mediastinum: Unremarkable. No cardiomegaly. Bones/joints: Unremarkable. XR/XR chest 1V portable [id number] IMPRESSION: No acute findings. No change from prior x-ray.
[2020-02-27 14:09] LABS: Glucose Urine UA 4+ (Normal); Ketones Urine Negative (Negative); Protein Urine 3+ (Negative); Urine Appearance Clear (CLEAR); Urine Color Colorless (Yellow); pH Urine 5 (5-7)
[2020-02-27 14:10] LABS: Add Urine Culture? No; Bacteria Urine TRACE /hpf; Bilirubin Urine Neg (Negative); Blood Urine Neg (Negative); Leukocyte Esterase Urine Negative (Negative); Nitrate Urine Negative (Negative); Squamous Epithelial Cell Urine RARE /hpf (0-5); Urobilinogen Urine Norm (Negative); WBC Urine RARE /hpf (0-5)
--- NOTE | 2020-02-27 14:16 | MRR_ITS ---
PROCEDURE INFORMATION: Exam: MR Head Without Contrast Exam date and time: 02/27/2020 3:55 PM Age: 54 years old Clinical indication: Pain; Headache; Additional info: AMS, HTN eval for rpls TECHNIQUE: Imaging protocol: MR of the head without contrast. COMPARISON: CT head wo con* [id number] 02/22/2020 7:32 PM FINDINGS: Brain: There are few punctate hyperintense foci in the white matter. DWI demonstrates no evidence of acute infarct. No hemorrhage or extra-axial collection. No evidence of cerebral edema to indicate . SWI demonstrates no evidence of hemorrhage. There are no abnormal flow voids. Cerebral ventricles: There is no hydrocephalus. Bones/joints: Unremarkable. Paranasal sinuses: Mild ethmoid sinus mucosal thickening.. No acute sinusitis. Mastoid air cells: Normal as visualized. No mastoid effusion. Orbits: Unremarkable. Soft tissues: Unremarkable. MR/MR head wo con* [id number] IMPRESSION: 1. There are few punctate hyperintense foci within the white matter. This is nonspecific but most likely to represent minor chronic microvascular disease. 2. No acute intracranial lesion or injury. No evidence of RPLS.
[2020-02-27 14:18] LABS: Basophils % 0.5 %; Eosinophils # 0.2 10^3/uL (0.0-0.8); Eosinophils % 3.5 %; Hematocrit 39.1 % (37.0-47.0); Hemoglobin 12.3 g/dL (11.5-15.3); Lymphocytes # 1.6 10^3/uL (0.8-4.8); Lymphocytes % 27.2 %; Mean Corpuscular HGB Conc 31.5 g/dL (30.0-36.0); Mean Corpuscular Hemoglobin 28.5 pg (28.0-34.0); Mean Corpuscular Volume 90.5 fL (81-99); Mean Platelet Volume 11.8 fL (7.4-10.4); Monocytes # 0.4 10^3/uL (0.2-0.9); Monocytes % 6.7 %; Neutrophils # 3.69 10^3/uL (1.8-7.7); Neutrophils % 61.4 %; Nucleated Red Blood Cells % 0 %; Platelet Count 215 10^3/cmm (130-400); Red Blood Count 4.32 10^6/uL (4.1-5.3); Red Cell Distribution Width 15.1 % (12.1-15.1)
--- NOTE | 2020-02-27 14:31 | PC.NURSE ---
Read and agree with assessment.
[2020-02-27 14:51] LABS: Troponin(5th) Baseline 9 ng/L (0-10)
[2020-02-27 14:55] LABS: INR 0.93 (0.8-1.2)
[2020-02-27 14:58] LABS: Alanine Aminotransferase 27 U/L (0-33); Albumin Level 4.5 g/dL (3.5-5.2); Alkaline Phosphatase 75 IU/L (35-105); Anion Gap 20.4 (5-19); Aspartate Amino Transferase 25 U/L (0-32); Blood Urea Nitrogen 17 mg/dL (6-20); Calcium 9.4 mg/dL (8.5-10.5); Carbon Dioxide 21 mmol/L (22-29); Chloride 103 mmol/L (98-107); Creatine Phosphokinase 61 U/L (26-192); Globulin 2.2 g/dL (1.3-4.6); Glomerular Filtration Rate 74.7 mL/min (90-130); Glucose 311 mg/dL (65-115); Lipase 98 U/L (13-60); NT Pro B Type Natriuretic Pept 6 pg/mL (0-125); Osmolality Calculated 303 mOsm/kg (285-295); Potassium 4.4 mmol/L (3.5-5.1); Sodium 140 mmol/L (136-145); Total Bilirubin 0.3 mg/dL (0.15-1.2); Total Protein 6.7 g/dL (6.6-8.7)
[2020-02-27] MEDS: LORazepam 2 mg/mL INJ 1 mL 1 MG IVP (15:24)
--- NOTE | 2020-02-27 15:27 | PC.NURSE ---
Patient up and walking to restroom.
--- NOTE | 2020-02-27 15:31 | PC.NURSE ---
Patient back to room.
--- NOTE | 2020-02-27 15:56 | ED_ITS ---
HPI - Neuro Symptoms/Deficit General: Chief Complaint: Neuro Symptoms/Deficit Stated Complaint: CONFUSION, SOMETHING WRONG WITH HER MIND PERFAMILY Time Seen by Provider: 02/27/20 13:30 History of Present Illness: HPI Narrative: This patient is a 54-year-old fem stefanie who presents today with altered mental status and confusion. She was initially seen here on the with the same symptoms. She had a very thorough work-up at that time including a CT of her head and a lumbar puncture. No abnormalities were found other than a slightly elevated lactate level. She was discharged with instructions to follow-up with her doctor. She did see her doctor on Friday, Dr. Rutherford. According to the patient's hqegcyur-nb-uqh he told her that he thought it was a combination of her high blood sugar, high blood pressure and high stress levels. The patient says that she does not feel like she is stressed. He apparently did not change any of her medications when she went home. On Friday she was suffering from a bad headache which she felt was related to the lumbar puncture. She called the office again and was instructed to come to the ER. She was treated symptomatically and felt better and then discharged home again. Since then her zvnncncr-zu-akr says she has gotten worse. She seems more confused and weak today. The dbzlmfwy-xb-mcm says that the patient has been having trouble word finding, reading and understanding things, states that she has been seeing things. The patient agrees with these statements. She also continues to have a mild headache. Another symptom that seems to be relatively new today is a discomfort in her jaw and throat. She said that comes and goes but has been present this morning. Fvyfcsbl-co-jnw said that she almost fell this morning because she got so weak. Her xislqcyn-gb-dtw caught her before she did fall. The patient says that when she stands up she feels weak and like she is going to pass out. She has not had any recent illnesses or fevers. She has been monitoring her blood pressure at home and it seems to go up and down between about 140 and 180 systolic. Her blood sugars also have been high between about 200 and 300. She denies any urinary symptoms. She denies any change in bowel movements. Appetite has been okay. When asked in detail about the things that she is seeing she says that she thinks that she is misinterpreting shapes. She gives as an example that the way a wheelchair was sitting looked like eyes to her and she had to get up and move it. She tells me that she has a history of pseudotumor and has had to have spinal taps in the past. She denies any history of heart disease or lung disease. She does have problems with her kidneys. Onset (ago): day(s) (5) Timing confirmed by: family member Location: altered History of same: No Severity: moderate Quality: weak Relieving factors: none Exacerbating factors: none Context: gradual onset On Anticoagulants: No Associated symptoms: Reports chest pain (Pain in her throat area), diaphoresis, headache(s), malaise, short of breath, syncope (Near syncope) and weakness; Deny nausea or vomiting Treatments Prior to Arrival: none Review of Systems General: Reports: 10 or more systems reviewed and unremarkable except in HPI and below Const: Reports: malaise and diaphoresis Eyes: Denies: change in vision ENMT: Denies: odynophagia Card: Reports: chest pain (Pain in her throat area) Resp: Reports: dyspnea; Denies: productive cough or non-productive cough GI: Denies: abdominal pain, nausea or vomiting : Denies: flank pain or difficulty voiding Musc: Denies: neck pain or back pain Skin/Breast: Denies: rash Neuro: Reports: headache(s) Damián/Lymph: Denies: easy bruising or easy bleeding [facility] ED PFSH: Medical History Chronic low back pain CKD (chronic kidney disease) Depression DM type 2 (diabetes mellitus, type 2) GERD (gastroesophageal reflux disease) Hyperlipidemia Hypertension Osteoarthritis Pseudotumor cerebri Physical Exam Const: COMMON NORMALS: no acute distress, patient oriented x3, no limitations and alert GENERAL APPEARANCE: cooperative and comfortable HENMT: HEAD & SCALP: normal to inspection FACE & SINUS: normal facial exam Eye: GENERAL EYE: appearance normal, both eyes and all related structures Neck/C-Spine: COMMON NORMALS: supple, no meningeal signs and no JVD Chest: COMMONS NORMALS: normal inspection of the chest Resp: COMMON NORMALS: normal respiratory effort, No use of accessory muscles and clear to auscultation bilaterally AUSCULTATION: clear to auscultation bilaterally Cardio: COMMON NORMALS: no JVD, regular rate, regular rhythm and No murmurs present (Cardio) RATE: regular rate RHYTHM: regular rhythm GI: COMMON NORMALS: Normal to inspection, nondistended, normoactive bowel sounds present, Soft to palpation and non-tender INSPECTION: Yes normal to inspection AUSCULTATION: Yes normoactive bowel sounds PALPATION: Yes Soft to palpation Back/Pelvis: COMMON NORMALS: thoracic and lumbar spine normal to inspection Extremity: COMMON NORMALS: normal to inspection Neuro: COMMON NORMALS: patient oriented x3, moves all extremities, no focal motor deficits and no sensory deficits noted SENSORIUM/ORIENTATION: Yes alert MENINGEAL SIGNS: Yes no meningeal signs CRANIAL NERVES: Yes CN normal except as noted SPEECH: speech normal GAIT: Yes Normal gait present MOTOR EXAM: 5/5 motor strength present throughout Psych: COMMON NORMALS: mental status grossly normal, cooperative and normal affect Skin: COMMON NORMALS: no rashes or lesions noted and turgor normal GENERAL SKIN EXAM: no rashes or lesions noted and turgor normal Course ED course: This patient was stable throughout her ED stay. Her mental status and neuro exam remained unchanged. Her work-up was totally unremarkable again. Her blood pressure was elevated at times but not outrageously so. Her blood sugar was elevated as well but it sounds like that is not unusual at all for her. Although I cannot find a specific cause for her symptoms I do not see anything that would pose a danger to her and I feel like she is safe to go home for an outpatient work-up. She and her ygyhmcpx-vm-gpf are are both frustrated that no one has been able to find out what is wrong with her. They are interested in getting a second opinion . I reviewed the prior notes from her ER visits including the spinal tap results. She is also seeing her own primary care doctor. I suggested neurology for follow-up and they do not like Dr. Wade I gave her referral for a neurologist in [place]. They also asked for a note for work as the patient just recently started a new job. We discussed return precautions and plan for outpatient follow-up. Vital Signs: Vital signs: Vital Signs Temperature 97.7 F 02/27/20 12:54 Pulse Rate 110 H 02/27/20 18:30 Respiratory Rate 16 02/27/20 18:30 Blood Pressure 143/81 02/27/20 18:30 Pulse Oximetry 97 02/27/20 16:30 MDM - Neuro Symptoms/Deficit Lab Data: Labs: Lab Results 02/27/20 02/27/20 02/27/20 Range/Units 13:06 13:06 13:45 WBC 6.0 (4.0-10.0) 10^3/ uL RBC 4.32 (4.1-5.3) 10^6/u L Hgb 12.3 (11.5-15.3) g/dL Hct 39.1 (37.0-47.0) % MCV 90.5 (81-99) fL MCH 28.5 (28.0-34.0) pg MCHC 31.5 (30.0-36.0) g/dL RDW 15.1 (12.1-15.1) % Plt Count 215 (130-400) 10^3/c mm MPV 11.8 H (7.4-10.4) fL Neut % (Auto) 61.4 % Lymph % (Auto) 27.2 % [place] % (Auto) 6.7 % Eos % (Auto) 3.5 % Baso % (Auto) 0.5 % Neut # (Auto) 3.69 (1.8-7.7) 10^3/u L Lymph # (Auto) 1.6 (0.8-4.8) 10^3/u L [place] # (Auto) 0.4 (0.2-0.9) 10^3/u L Eos # (Auto) 0.2 (0.0-0.8) 10^3/u L Baso # (Auto) 0.0 (0.0-0.1) 10^3/u L Nucleated RBC % (a uto) 0 % Nucleated RBCs # 0.0 /100WBC ESR (0-15) mm/hr PT (12.1-14.9) SECO NDS INR (0.8-1.2) Sodium (136-145) mmol/L Potassium (3.5-5.1) mmol/L Chloride (98-107) mmol/L Carbon Dioxide (22-29) mmol/L Anion Gap (5-19) BUN (6-20) mg/dL Creatinine (0.5-0.9) mg/dL GFR Calculation (90-130) mL/min Glucose (65-115) mg/dL Calculated Osmolal ity (285-295) mOsm/k g Calcium (8.5-10.5) mg/dL Total Bilirubin (0.15-1.2) mg/dL AST (0-32) U/L ALT (0-33) U/L Alkaline Phosphata se (35-105) IU/L Creatine Kinase (26-192) U/L Troponin T Baselin e (0-10) ng/L Troponin T 120 Min maximino (0-10) ng/L Delta Troponin T (0-10) ABS# C-Reactive Protein (0.0-4.9) mg/L NT-Pro-B Natriuret Pep (0-125) pg/mL Total Protein (6.6-8.7) g/dL Albumin (3.5-5.2) g/dL Globulin (1.3-4.6) g/dL Lipase (13-60) U/L Urine Color Colorless (Yellow) Urine Appearance Clear (CLEAR) Urine pH 5 (5-7) Ur Specific Gravit y 1.010 (1.005-1.030) Urine Protein 3+ H (Negative) Urine Glucose (UA) 4+ H (Normal) Urine Ketones Negative (Negative) Urine Blood Neg (Negative) Urine Nitrate Negative (Negative) Urine Bilirubin Neg (Negative) Urine Urobilinogen Norm (Negative) mg/dL Ur Leukocyte Telma ase Negative (Negative) Urine RBC None (0-2) /hpf Urine WBC Rare (0-5) /hpf Ur Squamous Epith Cells Rare (0-5) /hpf Amorphous Sediment Not Reportable Urine Bacteria Trace (NONE) /hpf Salicylates (3-10) mg/dL Urine Opiates Scre en Negative (Negative) ng/mL Acetaminophen (10-30) ug/mL Ur Barbiturates Sc reen Negative (Negative) ng/mL Ur Phencyclidine S crn Negative (Negative) ng/mL Ur Amphetamines Sc reen Negative (Negative) ng/mL U Benzodiazepines Scrn Negative (Negative) ng/mL Urine Cocaine Scre en Negative (Negative) ng/mL U Marijuana (THC) Screen Negative (Negative) ng/mL 02/27/20 02/27/20 02/27/20 Range/Units 13:45 13:45 13:45 WBC (4.0-10.0) 10^3/ uL RBC (4.1-5.3) 10^6/u L Hgb (11.5-15.3) g/dL Hct (37.0-47.0) % MCV (81-99) fL MCH (28.0-34.0) pg MCHC (30.0-36.0) g/dL RDW (12.1-15.1) % Plt Count (130-400) 10^3/c mm MPV (7.4-10.4) fL Neut % (Auto) % Lymph % (Auto) % [place] % (Auto) % Eos % (Auto) % Baso % (Auto) % Neut # (Auto) (1.8-7.7) 10^3/u L Lymph # (Auto) (0.8-4.8) 10^3/u L [place] # (Auto) (0.2-0.9) 10^3/u L Eos # (Auto) (0.0-0.8) 10^3/u L Baso # (Auto) (0.0-0.1) 10^3/u L Nucleated RBC % (a uto) % Nucleated RBCs # /100WBC ESR (0-15) mm/hr PT 12.80 (12.1-14.9) SECO NDS INR 0.93 (0.8-1.2) Sodium 140 (136-145) mmol/L Potassium 4.4 (3.5-5.1) mmol/L Chloride 103 (98-107) mmol/L Carbon Dioxide 21 L (22-29) mmol/L Anion Gap 20.4 H (5-19) BUN 17 (6-20) mg/dL Creatinine 0.8 (0.5-0.9) mg/dL GFR Calculation 74.7 L (90-130) mL/min Glucose 311 H (65-115) mg/dL Calculated Osmolal ity 303 H (285-295) mOsm/k g Calcium 9.4 (8.5-10.5) mg/dL Total Bilirubin 0.3 (0.15-1.2) mg/dL AST 25 (0-32) U/L ALT 27 (0-33) U/L Alkaline Phosphata se 75 (35-105) IU/L Creatine Kinase 61 (26-192) U/L Troponin T Baselin e 9 (0-10) ng/L Troponin T 120 Min maximino (0-10) ng/L Delta Troponin T (0-10) ABS# C-Reactive Protein (0.0-4.9) mg/L NT-Pro-B Natriuret Pep 6 (0-125) pg/mL Total Protein 6.7 (6.6-8.7) g/dL Albumin 4.5 (3.5-5.2) g/dL Globulin 2.2 (1.3-4.6) g/dL Lipase 98 H (13-60) U/L Urine Color (Yellow) Urine Appearance (CLEAR) Urine pH (5-7) Ur Specific Gravit y (1.005-1.030) Urine Protein (Negative) Urine Glucose (UA) (Normal) Urine Ketones (Negative) Urine Blood (Negative) Urine Nitrate (Negative) Urine Bilirubin (Negative) Urine Urobilinogen (Negative) mg/dL Ur Leukocyte Telma ase (Negative) Urine RBC (0-2) /hpf Urine WBC (0-5) /hpf Ur Squamous Epith Cells (0-5) /hpf Amorphous Sediment Urine Bacteria (NONE) /hpf Salicylates (3-10) mg/dL Urine Opiates Scre en (Negative) ng/mL Acetaminophen (10-30) ug/mL Ur Barbiturates Sc reen (Negative) ng/mL Ur Phencyclidine S crn (Negative) ng/mL Ur Amphetamines Sc reen (Negative) ng/mL U Benzodiazepines Scrn (Negative) ng/mL Urine Cocaine Scre en (Negative) ng/mL U Marijuana (THC) Screen (Negative) ng/mL 02/27/20 02/27/20 02/27/20 Range/Units 13:45 13:45 16:34 WBC (4.0-10.0) 10^3/ uL RBC (4.1-5.3) 10^6/u L Hgb (11.5-15.3) g/dL Hct (37.0-47.0) % MCV (81-99) fL MCH (28.0-34.0) pg MCHC (30.0-36.0) g/dL RDW (12.1-15.1) % Plt Count (130-400) 10^3/c mm MPV (7.4-10.4) fL Neut % (Auto) % Lymph % (Auto) % [place] % (Auto) % Eos % (Auto) % Baso % (Auto) % Neut # (Auto) (1.8-7.7) 10^3/u L Lymph # (Auto) (0.8-4.8) 10^3/u L [place] # (Auto) (0.2-0.9) 10^3/u L Eos # (Auto) (0.0-0.8) 10^3/u L Baso # (Auto) (0.0-0.1) 10^3/u L Nucleated RBC % (a uto) % Nucleated RBCs # /100WBC ESR 33 H (0-15) mm/hr PT (12.1-14.9) SECO NDS INR (0.8-1.2) Sodium (136-145) mmol/L Potassium (3.5-5.1) mmol/L Chloride (98-107) mmol/L Carbon Dioxide (22-29) mmol/L Anion Gap (5-19) BUN (6-20) mg/dL Creatinine (0.5-0.9) mg/dL GFR Calculation (90-130) mL/min Glucose (65-115) mg/dL Calculated Osmolal ity (285-295) mOsm/k g Calcium (8.5-10.5) mg/dL Total Bilirubin (0.15-1.2) mg/dL AST (0-32) U/L ALT (0-33) U/L Alkaline Phosphata se (35-105) IU/L Creatine Kinase (26-192) U/L Troponin T Baselin e (0-10) ng/L Troponin T 120 Min maximino 8.61 (0-10) ng/L Delta Troponin T -0.39 L (0-10) ABS# C-Reactive Protein 5.0 H (0.0-4.9) mg/L NT-Pro-B Natriuret Pep (0-125) pg/mL Total Protein (6.6-8.7) g/dL Albumin (3.5-5.2) g/dL Globulin (1.3-4.6) g/dL Lipase (13-60) U/L Urine Color (Yellow) Urine Appearance (CLEAR) Urine pH (5-7) Ur Specific Gravit y (1.005-1.030) Urine Protein (Negative) Urine Glucose (UA) (Normal) Urine Ketones (Negative) Urine Blood (Negative) Urine Nitrate (Negative) Urine Bilirubin (Negative) Urine Urobilinogen (Negative) mg/dL Ur Leukocyte Telma ase (Negative) Urine RBC (0-2) /hpf Urine WBC (0-5) /hpf Ur Squamous Epith Cells (0-5) /hpf Amorphous Sediment Urine Bacteria (NONE) /hpf Salicylates < 0.3 L (3-10) mg/dL Urine Opiates Scre en (Negative) ng/mL Acetaminophen < 5.0 L (10-30) ug/mL Ur Barbiturates Sc reen (Negative) ng/mL Ur Phencyclidine S crn (Negative) ng/mL Ur Amphetamines Sc reen (Negative) ng/mL U Benzodiazepines Scrn (Negative) ng/mL Urine Cocaine Scre en (Negative) ng/mL U Marijuana (THC) Screen (Negative) ng/mL Discharge Plan Discharge Patient Disposition: Home Clinical Impression: Hypertension Qualifiers: Hypertension type: unspecified Qualified Code(s): I10 - Essential (primary) hypertension Altered mental status Qualifiers: Altered mental status type: unspecified Qualified Code(s): R41.82 - Altered mental status, unspecified DM type 2 (diabetes mellitus, type 2) Qualifiers: Diabetes mellitus mcfp insulin use: unspecified terminal operator insulin use status Diabetes mellitus complication status: with other specified complication Qualified Code(s): E11.69 - Type 2 diabetes mellitus with other specified complication Condition: Stable Prescriptions: No Action Benadryl 1 - 2 cap PO PRN RF: 0 hydrocodone-acetaminophen 5-325 mg tablet 1 tab PO Q6H PRN (Reason: pain) Qty: 6 RF: 0 losartan 50 mg tablet 50 mg PO DAILY RF: 0 Lantus U-100 Insulin 100 unit/mL Solution 25 unit SUBCUT BEDTIME RF: 0 tizanidine 2 mg tablet 2 mg PO QID PRN (Reason: Muscle Spasm) RF: 0 aspirin 325 mg Tablet 325 mg PO DAILY RF: 0 simvastatin 40 mg Tablet 40 mg PO DAILY RF: 0 gabapentin 300 mg capsule 300 mg PO BID RF: 0 fluoxetine 20 mg capsule 20 mg PO DAILY RF: 0 metformin 500 mg tablet extended release 24 hr 1,000 mg PO BID RF: 0 loratadine 10 mg Tablet 10 mg PO BEDTIME RF: 0 Complete Multivitamin Tablet 1 tab PO DAILY RF: 0 cholecalciferol (vitamin D3) [Vitamin D3] 25 mcg (1,000 unit) Tablet 25 mcg PO DAILY RF: 0 Fish Oil 500 mg Capsule 500 mg PO QPM RF: 0 esomeprazole magnesium 20 mg Tablet,Delayed Release (Dr/Ec) 20 mg PO DAILY RF: 0 Discharge Orders: Discharge Order (Routine); Ordered 02/27/20 Ordered By: Monserrat Renee Referrals: Glo Louis MD [Referring] - Filiberto Rutherford DO [Primary Care Provider] - Discharge Diet: Advance as tolerated Discharge Activity: Resume usual activity Patient Instructions: Diabetes Mellitus Type 2 in Adults (ED), Chronic Hypertension (ED), Altered Mental Status (ED) Activity Restrictions/Additional Instructions: Rest. Follow-up with Dr. Rutherford for further instructions as far as work. Follow-up with a neurologist for further evaluation of your current symptoms. Do your best to control blood sugar with diet and medications and your blood pressure as well. Return to the ER if worsening symptoms or any other new concerns including fever. Stand Alone Forms: Work/School Release Coding Level of Care Code ED Business Office Coordinator for Martín Humphreys
[2020-02-27 16:30] VITALS: BP 158/96; PULSE 101; RESP 15; O2SAT 97
[2020-02-27 16:56] LABS: Amphetamines Screen Urine Negative (Negative); Barbiturates Screen Urine Negative (Negative); Benzodiazepines Screen Urine Negative (Negative); Cocaine Screen Urine Negative (Negative); Opiate Screen Urine Negative (Negative); PCP Screen Urine Negative (Negative); THC Screen Urine Negative (Negative)
[2020-02-27] MEDS: insulin regular-human 100 units/1 mL 10 UNIT IVP (17:06)
[2020-02-27 17:09] LABS: Acetaminophen < 5.0 ug/mL (10-30); Salicylate < 0.3 mg/dL (3-10)
[2020-02-27 17:28] LABS: Troponin 5 2HR 8.61 ng/L (0-10)
[2020-02-27 17:31] LABS: Erythrocyte Sedimentation Rate 33 mm/hr (0-15)
[2020-02-27 17:39] LABS: Troponin 5 2HR Delta -0.39 ABS# (0-10)
--- NOTE | 2020-02-27 17:50 | PC.NURSE ---
Bedside glucose 173mg/dL
[2020-02-27] MEDS: ketorolac 30 mg/mL INJ 15 MG IVP (18:14)
[2020-02-27 18:30] VITALS: BP 143/81; PULSE 110; RESP 16
== END 2020-02-27 18:30 | disposition home or self-care (01) ==
PROVIDERS: Emergency Medicine; Emergency Provider Emergency Medicine; PCP Internal Medicine
DX: R41.82 Altered mental status, unspecified (principal); I10 Essential (primary) hypertension; E11.69 Type 2 diabetes mellitus with other specified complication; Z79.82 Long term (current) use of aspirin; Z79.4 Long term (current) use of insulin; E78.5 Hyperlipidemia, unspecified
CPT/HCPCS: 12345; 70551; 71045; 80053; 80306; 80307; 81001; 82550; 83690; 83880; 84484; 85025; 85610; 85651; 86140; 93005; 96374; 96375; 99283; 99284; J1815; J1885; J2060

== ENCOUNTER 2020-08-08 04:34 | Emergency (ER) | payer SELFPAY ==
[2020-08-08 04:43] VITALS: BP 181/87; PULSE 94; RESP 16; TEMP 36.7; O2SAT 98; BMI 33.2
--- NOTE | 2020-08-08 04:54 | CTR_ITS ---
PROCEDURE INFORMATION: Exam: CT Abdomen And Pelvis With Contrast Exam date and time: 08/08/2020 5:13 AM Age: 54 years old Clinical indication: Abdominal pain; Localized; Left lower quadrant (llq); Prior surgery; Surgery date: 6+ months; Surgery type: Hyst; Additional info: Abd pain TECHNIQUE: Imaging protocol: Computed tomography of the abdomen and pelvis with contrast. Radiation optimization: All CT scans at this facility use at least one of these dose optimization techniques: automated exposure control; mA and/or kV adjustment per patient size (includes targeted exams where dose is matched to clinical indication); or iterative reconstruction. Contrast material: OMNI 300; Contrast volume: 95 ml; Contrast route: INTRAVENOUS (IV); COMPARISON: CT abdomen pelvis w con* [id number] 04/21/2017 12:00 PM RADIATION DOSE METRICS: Total DLP (mGy-cm): 1612.97 FINDINGS: Liver: Enlarged liver measuring 26 cm in CC dimension. The liver is otherwise unremarkable. Gallbladder and bile ducts: Normal. No calcified stones. No ductal dilation. Pancreas: Normal. No ductal dilation. Spleen: Enlarged spleen measuring 15.3 cm in CC dimension. Adrenal glands: Normal. No mass. Kidneys and ureters: There is a 2.3 cm cyst in the left lower kidney. The kidneys are otherwise unremarkable. Stomach and bowel: A small duodenal diverticulum is incidentally noted. There is multiple diverticuli in the distal descending colon, in association with wall thickening and stranding of the pericolic fat, consistent with acute diverticulitis. No evidence of free air or fluid collection to suggest perforation. Appendix: No evidence of appendicitis. Intraperitoneal space: See Stomach and bowel finding. Vasculature: Unremarkable. No abdominal aortic aneurysm. Lymph nodes: There is a subcentimeter calcification adjacent to the proximal duodenum, likely representing a calcified node, sequela of previous granulomatous disease. Urinary bladder: Unremarkable as visualized. Reproductive: Unremarkable as visualized. Bones/joints: Unremarkable. No acute fracture. Soft tissues: Unremarkable. CT/CT abdomen pelvis w con* [id number] IMPRESSION: 1. Uncomplicated acute diverticulitis involving the distal descending colon. 2. Hepatosplenomegaly. COMMENTS: Consistent with the [employer]'s Incidental Findings Committee white paper (J Am Ashley Radiol 2018): Any incidental renal lesion less than 1 cm or classified as too small to characterize, or any incidental cystic renal lesion characterized as simple-appearing, is likely benign. No follow-up imaging is recommended for these lesions per consensus recommendations based on imaging criteria. Radiation Dose CTDIVOL = (mGy): DLP = 1612.97 (mGy-cm)
--- NOTE | 2020-08-08 04:55 | ED_ITS ---
Documented by User: Radha Marie MD 08/08/20 04:56 HPI - Abdominal Pain General: Chief Complaint: Abdominal Pain Stated Complaint: lower abd pain Time Seen by Provider: 08/08/20 04:41 Source: patient Mode of arrival: ambulatory Limitations: no limitations History of Present Illness: HPI narrative: 54-year-old female who states she has been having left lower quadrant bowel pain since 1 AM. States pain is sharp in nature and much worse with palpation or movement. States is improved with rest. Denies any vomiting or diarrhea but has had nausea. Denies any dysuria. MD elicited complaint: abdominal pain Pertinent past history: none Onset (ago): hour(s) Pain Consistency: constant Location: LLQ Severity: moderate Quality: stabbing Radiation: none Migration to: no migration Associated Symptoms: Denies chills, dysuria and fever(s) Review of Systems Const: Denies: fever(s), chills, body aches or change in appetite Eyes: Denies: blurry vision or eye discomfort ENMT: Denies: throat pain or dental pain Card: Denies: chest pain Resp: Denies: dyspnea GI: Reports: abdominal pain : Denies: dysuria Musc: Denies: neck pain or back pain Skin/Breast: Denies: rash Neuro: Denies: headache(s) Psych: Denies: depression Damián/Lymph: Denies: easy bruising All/Imm: Denies: urticaria PFSH ED PFSH: Medical History Chronic low back pain CKD (chronic kidney disease) Depression DM type 2 (diabetes mellitus, type 2) GERD (gastroesophageal reflux disease) Hyperlipidemia Hypertension Osteoarthritis Pseudotumor cerebri Physical Exam Const: COMMON NORMALS: no acute distress, patient oriented x3 and healthy appearing HENMT: COMMON NORMALS: normocephalic and atraumatic HEAD & SCALP: normocephalic and atraumatic Eye: COMMON NORMALS: Equal, round and reactive pupils present and EOMs intact bilaterally PUPIL: Yes Equal, round and reactive pupils present Neck/C-Spine: COMMON NORMALS: full ROM and supple Chest: COMMONS NORMALS: normal inspection of the chest and normal palpation of entire chest wall Resp: COMMON NORMALS: normal respiratory effort, No retractions, No use of accessory muscles and clear to auscultation bilaterally AUSCULTATION: clear to auscultation bilaterally Cardio: COMMON NORMALS: regular rate, regular rhythm and No murmurs present (Cardio) RATE: regular rate RHYTHM: regular rhythm GI: COMMON NORMALS: Normal to inspection, nondistended, normoactive bowel sounds present, Soft to palpation, non-tender and no masses PALPATION: Yes Soft to palpation and Yes Tenderness to palpation present (GI) Details: LLQ Extremity: COMMON NORMALS: normal to inspection and full ROM Neuro: COMMON NORMALS: patient oriented x3, moves all extremities and no focal motor deficits Psych: COMMON NORMALS: mental status grossly normal, Normal thought process present and cooperative THOUGHT PROCESS: Normal thought process present Skin: COMMON NORMALS: no rashes or lesions noted and no wounds GENERAL SKIN EXAM: no rashes or lesions noted Course Vital Signs: Vital signs: Vital Signs Temperature 98.0 F 08/08/20 04:43 Pulse Rate 83 08/08/20 06:24 Respiratory Rate 18 08/08/20 06:24 Blood Pressure 151/82 08/08/20 06:24 Pulse Oximetry 97 08/08/20 06:24 MDM - Abdominal Pain Lab Data: Labs: Lab Results 08/08/20 08/08/20 08/08/20 Range/Units 04:55 04:55 04:55 WBC 10.7 H (4.0-10.0) 10^3/ uL RBC 3.99 L (4.1-5.3) 10^6/u L Hgb 11.4 L (11.5-15.3) g/dL Hct 37.5 (37.0-47.0) % MCV 94.0 (81-99) fL MCH 28.6 (28.0-34.0) pg MCHC 30.4 (30.0-36.0) g/dL RDW 14.9 (12.1-15.1) % Plt Count 234 (130-400) 10^3/c mm MPV 10.6 H (7.4-10.4) fL Neut % (Auto) 69.8 % Lymph % (Auto) 20.0 % [place] % (Auto) 6.0 % Eos % (Auto) 3.5 % Baso % (Auto) 0.4 % Neut # (Auto) 7.47 (1.8-7.7) 10^3/u L Lymph # (Auto) 2.1 (0.8-4.8) 10^3/u L [place] # (Auto) 0.6 (0.2-0.9) 10^3/u L Eos # (Auto) 0.4 (0.0-0.8) 10^3/u L Baso # (Auto) 0.0 (0.0-0.1) 10^3/u L Nucleated RBC % (a uto) 0 % Nucleated RBCs # 0.0 /100WBC Sodium 140 (136-145) mmol/L Potassium 4.0 (3.5-5.1) mmol/L Chloride 105 (98-107) mmol/L Carbon Dioxide 23 (22-29) mmol/L Anion Gap 16.0 (5-19) BUN 23 H (6-20) mg/dL Creatinine 0.7 (0.5-0.9) mg/dL GFR Calculation 87.2 L (90-130) mL/min Glucose 133 H (65-115) mg/dL Calculated Osmolal ity 296 H (285-295) mOsm/k g Calcium 9.3 (8.5-10.5) mg/dL Total Bilirubin 0.3 (0.15-1.2) mg/dL AST 31 (0-32) U/L ALT 29 (0-33) U/L Alkaline Phosphata se 68 (35-105) IU/L Total Protein 6.9 (6.6-8.7) g/dL Albumin 4.3 (3.5-5.2) g/dL Globulin 2.6 (1.3-4.6) g/dL Lipase 72 H (13-60) U/L Urine Color Yellow (Yellow) Urine Appearance Clear (CLEAR) Urine pH 5 (5-7) Ur Specific Gravit y 1.020 (1.005-1.030) Urine Protein 3+ H (Negative) Urine Glucose (UA) Norm (Normal) Urine Ketones Negative (Negative) Urine Blood Neg (Negative) Urine Nitrate Negative (Negative) Urine Bilirubin Neg (Negative) Urine Urobilinogen Norm (Negative) mg/dL Ur Leukocyte Telma ase Negative (Negative) Urine RBC 0-4 H (0-2) /hpf Urine WBC None (0-5) /hpf Ur Squamous Epith Cells 0-4 H (0-5) /hpf Amorphous Sediment Not Reportable Urine Bacteria None (NONE) /hpf Urine Mucus 2+ /hpf Discharge Plan Discharge Patient Disposition: Home Clinical Impression: Diverticulitis, DM type 2 (diabetes mellitus, type 2), CKD (chronic kidney disease), Hypertension Condition: Stable Prescriptions: New Cipro 500 mg tablet 500 mg PO BID Qty: 20 RF: 0 Flagyl 500 mg tablet 500 mg PO Q12H 10 Days Qty: 20 RF: 0 hydrocodone-acetaminophen 5-325 mg tablet 1 tab PO Q6H PRN (Reason: pain) Qty: 20 RF: 0 No Action Benadryl 1 - 2 cap PO PRN RF: 0 hydrocodone-acetaminophen 5-325 mg tablet 1 tab PO Q6H PRN (Reason: pain) Qty: 6 RF: 0 losartan 50 mg tablet 50 mg PO DAILY RF: 0 Lantus U-100 Insulin 100 unit/mL Solution 25 unit SUBCUT BEDTIME RF: 0 tizanidine 2 mg tablet 2 mg PO QID PRN (Reason: Muscle Spasm) RF: 0 aspirin 325 mg Tablet 325 mg PO DAILY RF: 0 simvastatin 40 mg Tablet 40 mg PO DAILY RF: 0 gabapentin 300 mg capsule 300 mg PO BID RF: 0 fluoxetine 20 mg capsule 20 mg PO DAILY RF: 0 metformin 500 mg tablet extended release 24 hr 1,000 mg PO BID RF: 0 loratadine 10 mg Tablet 10 mg PO BEDTIME RF: 0 Complete Multivitamin Tablet 1 tab PO DAILY RF: 0 cholecalciferol (vitamin D3) [Vitamin D3] 25 mcg (1,000 unit) Tablet 25 mcg PO DAILY RF: 0 Fish Oil 500 mg Capsule 500 mg PO QPM RF: 0 esomeprazole magnesium 20 mg Tablet,Delayed Release (Dr/Ec) 20 mg PO DAILY RF: 0 Discharge Orders: Discharge ED (Routine); Ordered 08/08/20 Ordered By: Amilcar Wilkins Referrals: Filiberto Rutherford DO [Primary Care Provider] - Discharge Diet: Clear Liquid Discharge Activity: Increase activity as tolerated Patient Instructions: Opioid Safety Activity Restrictions/Additional Instructions: Clear liquid diet for 24 to 48 hours advance as tolerated if not improving follow-up with primary care provider Sign Out Sign Out Data: Patient Sign Out occurred on 08/08/20 at 05:58. Patient's care was discussed, and care was transferred from to Amilcar Wilkins DO. Coding Level of Care Code ED Strategic Partnership Specialist for Chg Fwd Exam Comprehensive Documented by User: Amilcar Wilkins DO 08/08/20 06:28 HPI - Abdominal Pain General: Chief Complaint: Abdominal Pain Stated Complaint: lower abd pain Time Seen by Provider: 08/08/20 04:41 PFSH ED PFSH: Medical History Chronic low back pain CKD (chronic kidney disease) Depression DM type 2 (diabetes mellitus, type 2) GERD (gastroesophageal reflux disease) Hyperlipidemia Hypertension Osteoarthritis Pseudotumor cerebri Course Vital Signs: Vital signs: Vital Signs Temperature 98.0 F 08/08/20 04:43 Pulse Rate 83 08/08/20 06:24 Respiratory Rate 18 08/08/20 06:24 Blood Pressure 151/82 08/08/20 06:24 Pulse Oximetry 97 08/08/20 06:24 MDM - Abdominal Pain MDM Narrative: Medical decision making narrative: Care assumed from Dr. Marie at change of shift labs reviewed CT shows uncomplicated acute diverticulitis. We will start her on Cipro and Flagyl. Patient given another dose of morphine here will discharge home with hydrocodone as well follow-up with her primary care provider recommend at least 2 days of clear liquid diet and then advance as tolerated. Lab Data: Labs: Lab Results 08/08/20 08/08/20 08/08/20 Range/Units 04:55 04:55 04:55 WBC 10.7 H (4.0-10.0) 10^3/ uL RBC 3.99 L (4.1-5.3) 10^6/u L Hgb 11.4 L (11.5-15.3) g/dL Hct 37.5 (37.0-47.0) % MCV 94.0 (81-99) fL MCH 28.6 (28.0-34.0) pg MCHC 30.4 (30.0-36.0) g/dL RDW 14.9 (12.1-15.1) % Plt Count 234 (130-400) 10^3/c mm MPV 10.6 H (7.4-10.4) fL Neut % (Auto) 69.8 % Lymph % (Auto) 20.0 % [place] % (Auto) 6.0 % Eos % (Auto) 3.5 % Baso % (Auto) 0.4 % Neut # (Auto) 7.47 (1.8-7.7) 10^3/u L Lymph # (Auto) 2.1 (0.8-4.8) 10^3/u L [place] # (Auto) 0.6 (0.2-0.9) 10^3/u L Eos # (Auto) 0.4 (0.0-0.8) 10^3/u L Baso # (Auto) 0.0 (0.0-0.1) 10^3/u L Nucleated RBC % (a uto) 0 % Nucleated RBCs # 0.0 /100WBC Sodium 140 (136-145) mmol/L Potassium 4.0 (3.5-5.1) mmol/L Chloride 105 (98-107) mmol/L Carbon Dioxide 23 (22-29) mmol/L Anion Gap 16.0 (5-19) BUN 23 H (6-20) mg/dL Creatinine 0.7 (0.5-0.9) mg/dL GFR Calculation 87.2 L (90-130) mL/min Glucose 133 H (65-115) mg/dL Calculated Osmolal ity 296 H (285-295) mOsm/k g Calcium 9.3 (8.5-10.5) mg/dL Total Bilirubin 0.3 (0.15-1.2) mg/dL AST 31 (0-32) U/L ALT 29 (0-33) U/L Alkaline Phosphata se 68 (35-105) IU/L Total Protein 6.9 (6.6-8.7) g/dL Albumin 4.3 (3.5-5.2) g/dL Globulin 2.6 (1.3-4.6) g/dL Lipase 72 H (13-60) U/L Urine Color Yellow (Yellow) Urine Appearance Clear (CLEAR) Urine pH 5 (5-7) Ur Specific Gravit y 1.020 (1.005-1.030) Urine Protein 3+ H (Negative) Urine Glucose (UA) Norm (Normal) Urine Ketones Negative (Negative) Urine Blood Neg (Negative) Urine Nitrate Negative (Negative) Urine Bilirubin Neg (Negative) Urine Urobilinogen Norm (Negative) mg/dL Ur Leukocyte Telma ase Negative (Negative) Urine RBC 0-4 H (0-2) /hpf Urine WBC None (0-5) /hpf Ur Squamous Epith Cells 0-4 H (0-5) /hpf Amorphous Sediment Not Reportable Urine Bacteria None (NONE) /hpf Urine Mucus 2+ /hpf Discharge Plan Discharge Patient Disposition: Home Clinical Impression: Diverticulitis, DM type 2 (diabetes mellitus, type 2), CKD (chronic kidney disease), Hypertension Condition: Stable Prescriptions: New Cipro 500 mg tablet 500 mg PO BID Qty: 20 RF: 0 Flagyl 500 mg tablet 500 mg PO Q12H 10 Days Qty: 20 RF: 0 hydrocodone-acetaminophen 5-325 mg tablet 1 tab PO Q6H PRN (Reason: pain) Qty: 20 RF: 0 No Action Benadryl 1 - 2 cap PO PRN RF: 0 hydrocodone-acetaminophen 5-325 mg tablet 1 tab PO Q6H PRN (Reason: pain) Qty: 6 RF: 0 losartan 50 mg tablet 50 mg PO DAILY RF: 0 Lantus U-100 Insulin 100 unit/mL Solution 25 unit SUBCUT BEDTIME RF: 0 tizanidine 2 mg tablet 2 mg PO QID PRN (Reason: Muscle Spasm) RF: 0 aspirin 325 mg Tablet 325 mg PO DAILY RF: 0 simvastatin 40 mg Tablet 40 mg PO DAILY RF: 0 gabapentin 300 mg capsule 300 mg PO BID RF: 0 fluoxetine 20 mg capsule 20 mg PO DAILY RF: 0 metformin 500 mg tablet extended release 24 hr 1,000 mg PO BID RF: 0 loratadine 10 mg Tablet 10 mg PO BEDTIME RF: 0 Complete Multivitamin Tablet 1 tab PO DAILY RF: 0 cholecalciferol (vitamin D3) [Vitamin D3] 25 mcg (1,000 unit) Tablet 25 mcg PO DAILY RF: 0 Fish Oil 500 mg Capsule 500 mg PO QPM RF: 0 esomeprazole magnesium 20 mg Tablet,Delayed Release (Dr/Ec) 20 mg PO DAILY RF: 0 Discharge Orders: Discharge ED (Routine); Ordered 08/08/20 Ordered By: Amilcar Wilkins Referrals: Filiberto Rutherford DO [Primary Care Provider] - Discharge Diet: Clear Liquid Discharge Activity: Increase activity as tolerated Patient Instructions: Opioid Safety Activity Restrictions/Additional Instructions: Clear liquid diet for 24 to 48 hours advance as tolerated if not improving follow-up with primary care provider Sign Out Sign Out Data: Patient Sign Out occurred on 08/08/20 at 05:58. Patient's care was discussed, and care was transferred from to Amilcar Wilkins DO. Coding Level of Care Code ED Strategic Partnership Specialist for Chg Fwd Exam Comprehensive
[2020-08-08] MEDS: ondansetron 2 mg/ML SDV 2 mL 4 MG IVP (04:58)
[2020-08-08 04:59] VITALS: RESP 18; O2SAT 99
[2020-08-08] MEDS: morphine 4 mg/mL SDV 1 mL IVP ×2 (04:59→06:22)
[2020-08-08 05:01] LABS: Basophils % 0.4 %; Eosinophils # 0.4 10^3/uL (0.0-0.8); Eosinophils % 3.5 %; Hematocrit 37.5 % (37.0-47.0); Hemoglobin 11.4 g/dL (11.5-15.3); Lymphocytes # 2.1 10^3/uL (0.8-4.8); Mean Corpuscular HGB Conc 30.4 g/dL (30.0-36.0); Mean Corpuscular Hemoglobin 28.6 pg (28.0-34.0); Mean Platelet Volume 10.6 fL (7.4-10.4); Monocytes # 0.6 10^3/uL (0.2-0.9); Neutrophils # 7.47 10^3/uL (1.8-7.7); Neutrophils % 69.8 %; Nucleated Red Blood Cells % 0 %; Platelet Count 234 10^3/cmm (130-400); Red Blood Count 3.99 10^6/uL (4.1-5.3); Red Cell Distribution Width 14.9 % (12.1-15.1); White Blood Count 10.7 10^3/uL (4.0-10.0)
[2020-08-08 05:18] LABS: Add Urine Microscopic? YES; Bilirubin Urine Neg (Negative); Blood Urine Neg (Negative); Glucose Urine UA Norm (Normal); Ketones Urine Negative (Negative); Leukocyte Esterase Urine Negative (Negative); Nitrate Urine Negative (Negative); Protein Urine 3+ (Negative); Urine Appearance Clear (CLEAR); Urine Color Yellow (Yellow); Urobilinogen Urine Norm (Negative); pH Urine 5 (5-7)
[2020-08-08 05:19] LABS: Add Urine Culture? No; Alanine Aminotransferase 29 U/L (0-33); Albumin Level 4.3 g/dL (3.5-5.2); Alkaline Phosphatase 68 IU/L (35-105); Aspartate Amino Transferase 31 U/L (0-32); Blood Urea Nitrogen 23 mg/dL (6-20); Calcium 9.3 mg/dL (8.5-10.5); Carbon Dioxide 23 mmol/L (22-29); Chloride 105 mmol/L (98-107); Globulin 2.6 g/dL (1.3-4.6); Glomerular Filtration Rate 87.2 mL/min (90-130); Glucose 133 mg/dL (65-115); Lipase 72 U/L (13-60); Mucus Urine 2+ /hpf; Osmolality Calculated 296 mOsm/kg (285-295); RBC Urine 0-4 /hpf (0-2); Sodium 140 mmol/L (136-145); Squamous Epithelial Cell Urine 0-4 /hpf (0-5); Total Bilirubin 0.3 mg/dL (0.15-1.2); Total Protein 6.9 g/dL (6.6-8.7)
[2020-08-08] MEDS: iohexol 300 mg/mL 100 mL Btl IV (05:30)
[2020-08-08 06:22] VITALS: RESP 18; O2SAT 98
[2020-08-08 06:24] VITALS: BP 151/82; PULSE 83; RESP 18; O2SAT 97
[2020-08-08 06:30] VITALS: PULSE 78; RESP 16; O2SAT 96
== END 2020-08-08 06:31 | disposition home or self-care (01) ==
PROVIDERS: Emergency Medicine; Emergency Provider Family Medicine; PCP Internal Medicine
DX: K57.92 Diverticulitis of intestine, part unspecified, without perforation or abscess without bleeding (principal); I12.9 Hypertensive chronic kidney disease with stage 1 through stage 4 chronic kidney disease, or unspecified chronic kidney disease; E11.22 Type 2 diabetes mellitus with diabetic chronic kidney disease; N18.9 Chronic kidney disease, unspecified; Z79.82 Long term (current) use of aspirin; Z79.4 Long term (current) use of insulin
CPT/HCPCS: 74177; 80053; 81001; 83690; 85025; 96374; 96375; 96376; 99283; J2270; J2405; Q9967

== ENCOUNTER 2020-10-15 10:12 | Emergency (ER) | payer MEDICAID, SELFPAY ==
[2020-10-15 10:40] VITALS: BP 154/73; PULSE 86; RESP 16; TEMP 36.7; O2SAT 96; BMI 32.2
[2020-10-15 10:48] VITALS: BP 161/79; PULSE 84; RESP 18; O2SAT 95
--- NOTE | 2020-10-15 11:08 | XRR_ITS ---
PROCEDURE INFORMATION: Exam: XR Right Wrist Exam date and time: 10/15/2020 11:08 AM Age: 54 years old Clinical indication: Pain; Wrist; Right; Additional info: Pain and swelling TECHNIQUE: Imaging protocol: XR Right wrist. Views: Frontal, lateral, and oblique, 3 views. COMPARISON: No relevant prior studies available. FINDINGS: Bones/joints: Normal. Soft tissues: Normal. XR/XR wrist RT min 3V* [id number] IMPRESSION: No acute findings.
--- NOTE | 2020-10-15 11:21 | W.ED.GENADLT ---
HPI - General Adult General: Chief complaint: General Medical Stated complaint: R wrist pain, swelling, Time Seen by Provider: 10/15/20 11:06 History of Present Illness: HPI narrative: Patient is a 54-year-old female comes to the ED with right wrist pain and swelling. Patient has a history of carpal tunnel on both left and right hand and says that her right hand is worse. 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 She denies any acute trauma or injury to her right wrist. She says she woke up this morning and she was having more severe pain to her right wrist and numbness and tingling in her right hand. She also noted swelling and extremely tender nodule on lateral ulnar aspect of wrist. She rates her pain a 6 out of 10 when doing nothing and at rest and if something touches her wrist she says it is a 10 out of 10. She states the pain radiates up into her elbow as well. Any range of motion in wrist is painful. Associated symptoms: Deny chest pain, dyspnea, headache(s), nausea, rash, palpitations or vomiting Review of Systems Const: Denies: fever(s), chills or fatigue Eyes: Denies: change in vision or eye discomfort ENMT: Denies: throat pain, odynophagia, nasal discharge or nasal congestion Card: Denies: chest pain, palpitations, edema, swelling of feet/ankles, dyspnea on exertion or orthopnea Resp: Denies: dyspnea, productive cough or non-productive cough GI: Denies: abdominal pain, nausea, vomiting, diarrhea, constipation or hematochezia : Denies: flank pain, dysuria or hematuria Musc: Reports: joint pain (right wrist) and joint swelling (right wrist); Denies: neck pain, back pain or extremity swelling Skin/Breast: Denies: rash or new lesions Neuro: Denies: headache(s), numbness in extremities or weakness in extremities PFS ED PFSH: Medical History Chronic low back pain CKD (chronic kidney disease) Depression DM type 2 (diabetes mellitus, type 2) GERD (gastroesophageal reflux disease) Hyperlipidemia Hypertension Osteoarthritis Pseudotumor cerebri Physical Exam Const: COMMON NORMALS: no acute distress, patient oriented x3 and alert GENERAL APPEARANCE: cooperative and comfortable HENMT: COMMON NORMALS: normocephalic HEAD & SCALP: normocephalic MOUTH: Normal oral and palatal mucosa present THROAT: posterior oropharynx normal and uvula midline Neck/C-Spine: COMMON NORMALS: supple GENERAL: Yes normal visual inspection Resp: COMMON NORMALS: normal respiratory effort, No retractions, No use of accessory muscles and clear to auscultation bilaterally AUSCULTATION: clear to auscultation bilaterally Cardio: COMMON NORMALS: regular rate, regular rhythm, S1 normal heart sound present, S2 normal heart sound present, No gallops present (Cardio), No clicks present (Cardio), No murmurs present (Cardio) and Peripheral pulses 2+ throughout RATE: regular rate RHYTHM: regular rhythm HEART SOUNDS: S1 normal heart sound present and S2 normal heart sound present PERIPHERAL PULSES: Peripheral pulses 2+ throughout GI: COMMON NORMALS: Normal to inspection, nondistended, normoactive bowel sounds present, Soft to palpation, non-tender and no masses PALPATION: Yes Soft to palpation : COMMON NORMALS: Yes no CVA tenderness BLADDER/KIDNEY EXAM: Yes no CVA tenderness Back/Pelvis: COMMON NORMALS: no CVA tenderness Extremity: RIGHT UPPER EXTREMITY: Yes wrist Right wrist: Yes inspection (Swelling along with a erythemic nodule on lateral ulnar aspect of wrist), Yes palpation (Tenderness over ulnar aspect of wrist.), Yes ROM (Limited due to pain) and Yes neurovascular exam (Cap refill normal, radial pulse 2+. Numbness tingling to fingers.) Neuro: COMMON NORMALS: patient oriented x3 and moves all extremities SENSORIUM/ORIENTATION: Yes alert Skin: GENERAL SKIN EXAM: dry skin Course Vital Signs: Vital signs: Vital Signs Temperature 98.0 F 10/15/20 10:40 Pulse Rate 82 10/15/20 12:34 Respiratory Rate 18 10/15/20 12:34 Blood Pressure 140/57 10/15/20 12:34 Pulse Oximetry 96 10/15/20 12:34 MDM - General Adult MDM Narrative: Medical decision making narrative: Patient is a 54-year-old female comes to the ED with right wrist pain and swelling. She also has some numbness and tingling in her fingers. Denies any injury. Patient has a history of carpal tunnel syndrome. She states this is like one of her past carpal tunnel flareups but is worse than usual. X-rays of right wrist show no acute fractures or findings. Patient was diagnosed with acute carpal tunnel syndrome of right wrist. She was given a dose of hydrocodone and shot of Decadron while here in the ED. She was discharged home with written prescription for hydrocodone for pain and a Medrol Dosepak. I placed an order with case management for patient be referred to Ortho for further evaluation. Return ED precautions given. Patient understood with plan. Imaging Data^: Xray Ortho: Attestation: I personally reviewed and interpreted this imaging study as follows: My impression: Right wrist x-ray no acute fractures or findings. Radiologist's impression: [address] [place] [address] XRay Report Signed Patient: Sruthi Wright Unit #: [id number] : 1965 Age/Sex: 54 / F ADM Date: 10/15/20 Loc: ER Room/Bed: Attending Dr: Ordering Provider/Ordering MD: Santos Gomes Date of Service: 10/15/20 Procedure(s): XR wrist RT min 3V* [id number] Accession Number(s): [id number] Report Number: [id number] PROCEDURE INFORMATION: Exam: XR Right Wrist Exam date and time: 10/15/2020 11:08 AM Age: 54 years old Clinical indication: Pain; Wrist; Right; Additional info: Pain and swelling TECHNIQUE: Imaging protocol: XR Right wrist. Views: Frontal, lateral, and oblique, 3 views. COMPARISON: No relevant prior studies available. FINDINGS: Bones/joints: Normal. Soft tissues: Normal. XR/XR wrist RT min 3V* [id number] IMPRESSION: No acute findings. Dictated By: Giuseppe Dick MD Signed By: Giuseppe Dick MD Signed Date/Time: 10/15/20 1154 DD/ 1152 Discharge Plan Discharge Patient Disposition: Home Clinical Impression: Acute carpal tunnel syndrome of right wrist Condition: Stable Prescriptions: New Medrol (Vladimir) 4 mg tablets,dose pack See Rx Instructions .ROUTE .COMPLEX Qty: 21 RF: 0 No Action Benadryl 1 - 2 cap PO PRN RF: 0 losartan 50 mg tablet 50 mg PO DAILY RF: 0 Aspir-81 81 mg PO DAILY RF: 0 bupropion HCl 100 mg tablet 100 mg PO DAILY RF: 0 Xanax 0.25 mg Tablet 0.25 mg PO BID PRN (Reason: UNKNOWN) RF: 0 multivitamin 1 tab PO DAILY RF: 0 Lantus U-100 Insulin 100 unit/mL Solution 40 unit SUBCUT BID RF: 0 simvastatin 40 mg Tablet 40 mg PO DAILY RF: 0 fluoxetine 20 mg capsule 20 mg PO DAILY RF: 0 metformin 500 mg tablet extended release 24 hr 1,000 mg PO BID RF: 0 loratadine 10 mg Tablet 10 mg PO BEDTIME RF: 0 cholecalciferol (vitamin D3) [Vitamin D3] 25 mcg (1,000 unit) Tablet 25 mcg PO DAILY RF: 0 Fish Oil 500 mg Capsule 500 mg PO QPM RF: 0 esomeprazole magnesium 20 mg Tablet,Delayed Release (Dr/Ec) 20 mg PO DAILY RF: 0 Discharge Orders: Discharge ED (Routine); Ordered 10/15/20 Ordered By: Santos Gomes Referrals: Filiberto Rutherford DO [Primary Care Provider] - Discharge Diet: Regular Discharge Activity: Limit activity as instructed Patient Instructions: Carpal Tunnel Syndrome Exercises (GEN), Carpal Tunnel Syndrome (ED), Opioid Safety Activity Restrictions/Additional Instructions: Follow-up with medical provider as directed. Case management will be contacting you in the next several days set up an appointment with orthopedic doctor. While taking steroid Dosepak watch sugars closely because it can cause increased glucose levels. Wear your wrist splint and apply cold pack on wrist as well to help with symptoms. Take medications as prescribed. Return to the ER or your medical provider if condition worsens. Please read and understand discharge instructions. Thank you for choosing [facility] for your healthcare needs today. Please realize this is an emergency room and that we are providing you with a medical screening exam and this may not be complete and all inclusive of all the testing and or work up that you may need to determine your ailment or severity of your illness. It is very important that you follow up as instructed or that you return to the Emergency Department should you have concerns or if your condition changes or worsens in any way. Stand Alone Forms: Work/School Release Coding Level of Care Code ED Hand Laster for Martín Fwza Exam Comprehensive
[2020-10-15] MEDS: HYDROcodone-acetaminophen 7.5-325 mg Tablet 1 TAB PO (11:43)
[2020-10-15] MEDS: dexamethasone 10 mg/mL INJ IM (11:44)
[2020-10-15 12:34] VITALS: BP 140/57; PULSE 82; RESP 18; O2SAT 96
--- NOTE | 2020-10-17 09:40 | DCPLANNER ---
ticket manager had message to schedule a follow up appointment for patient with ortho for carpal tunnel syndrome. ticket manager called the ortho clinic, spoke with Zunilda, gave clinic patients information. ticket manager was told that patients information would be printed and reviewed. Clinic will call patient with appointment information.
--- NOTE | 2020-10-19 07:42 | DCPLANNER ---
Patient has a follow up appointment scheduled for Friday, October 30, 2020 at 8:[address] Ward at the ortho clinic. Clinic will call patient with appointment information.
--- NOTE | 2020-11-09 08:16 | DCPLANNER ---
Patient had a follow up appointment scheduled for 10.30.20 with ortho - patient did attend appointment.
== END 2020-10-15 12:38 | disposition home or self-care (01) ==
PROVIDERS: Emergency Provider Physician Assistant; PCP Internal Medicine
DX: G56.01 Carpal tunnel syndrome, right upper limb (principal); Z79.82 Long term (current) use of aspirin; Z79.4 Long term (current) use of insulin; E11.9 Type 2 diabetes mellitus without complications; E78.5 Hyperlipidemia, unspecified; I10 Essential (primary) hypertension
CPT/HCPCS: 73110; 96372; 99283; J1100

== ENCOUNTER → 2020-10-30 08:21 | Outpatient (BNVA) | payer MEDICAID, SELFPAY | PROVIDERS: PCP Internal Medicine; Visit Provider Specialist | DX: G56.01 Carpal tunnel syndrome, right upper limb (principal) | CPT/HCPCS: 73100 ==

== ENCOUNTER → 2020-11-20 13:10 | Outpatient (BNVA) | payer MEDICAID, SELFPAY | PROVIDERS: PCP Internal Medicine; Visit Provider Specialist | DX: Z20.822 Contact with and (suspected) exposure to COVID-19 (principal) | CPT/HCPCS: 87635 ==

== ENCOUNTER 2020-11-24 05:58 | Day surgery (SDC) | payer MEDICAID, SELFPAY ==
[2020-11-23 13:42] VITALS: BMI 31.6
[2020-11-24 06:16] VITALS: BP 155/83; PULSE 85; RESP 18; TEMP 36.3; O2SAT 97
[2020-11-24] MEDS: CELEcoxib 200 mg Capsule 400 MG PO (06:33)
[2020-11-24] MEDS: sodium chloride 0.9% 1,000 ML 30 ML IV (06:41)
[2020-11-24] MEDS: acetaminophen 1,000 MG/100 ML PIGGYBACK 400 MG IV (06:41)
[2020-11-24 06:42] LABS: Glucose Point of Care 182 mg/dL (70-110)
--- NOTE | 2020-11-24 06:42 | ANES.PREANE2 ---
Pre-Anesthetic Assessment Pre-Anesthetic Assessment: Height/Weight: Height 1.52 m Weight 73.482 kg Temp Pulse Resp BP Pulse Ox 97.3 F L 85 18 155/83 97 11/24/20 06:16 11/24/20 06:16 11/24/20 06:16 11/24/20 06:16 11/24/20 06:16 Preop Diagnosis: Right carpal tunnel syndrome Proposed Procedure: Operation Date: 11/24/20 07:00 Proposed Procedures p Carpal Tunnel Release 24468 G56.01(Right) - Gertrude Ward MD Was Beta Sybil taken within 24 hours: N/A Was Clonidine taken within 24 hours: N/A Last intake: Intake Last Liquid Date 11/23/20 Last Liquid Time 21:00 Last Solid Date 11/23/20 Last Solid Time 19:00 Social: Social History: No alcohol and No tobacco Exam: Pre-Anes Outpt Exam: alert, oriented x 3, clear to auscultation bilaterally and regular rate & rhythm Airway: Submandibular: WNL Cervical ROM: WNL Dentition: Full CV/HEM: CV/HEM: HTN : : Chronic renal Insufficiency Metabolic: Metabolic: DM and Hyperlipidemia Musc/skel: Musc/skel: Lower Back Pain Neuropsych: Neuropsych: Anxiety and Depression Anesthetic Plan: ASA status: 3 Anesthesia: Regional (specify below) (Enoch ley) Risk of > 500 ml blood loss (7ml/kg in children): No Meds/Allergies Current Medications: Current Medications Generic Name Dose Route Start Last Admin Trade Name Freq PRN Reason Stop Dose Admin Sodium Chloride 1,000 mls @ 30 ml s/hr 11/24/20 06:00 11/24/20 06:41 Sodium Chloride 0.9% IV 11/25/20 05:59 30 mls/hr .Q24H ARLEEN Administration PFSH Anesthesia PFSH: Medical History Chronic low back pain CKD (chronic kidney disease) Depression DM type 2 (diabetes mellitus, type 2) GERD (gastroesophageal reflux disease) Hyperlipidemia Hypertension Osteoarthritis Pseudotumor cerebri Social History Smoking and tobacco status: never smoked Data Anesthesia Other Labs: Laboratory Results - last 48 hr 11/24/20 06:39 POC Glucose 182 H Cardiac Studies: No Data to Display
--- NOTE | 2020-11-24 06:58 | W.PM.OPSUD ---
Surgery/Procedure H&P Update DATE OF PROCEDURE: November 24, 2020 DATE H&P PERFORMED: 10/30/20 H&P UPDATE INFORMATION: I have reviewed H&P completed within last 30 days, I have examined patient prior to procedure, No changes to prior documentation and H&P is in [facility] EMR on date indicated PREOP DIAGNOSIS: Right carpal tunnel syndrome PLANNED PROCEDURE: Operation Date: 11/24/20 07:00 Proposed Procedures p Carpal Tunnel Release [id number] G56.01(Right) - Gertrude Ward MD Related Problem List Diagnoses (1) Carpal tunnel syndrome on right:
[2020-11-24 07:55] VITALS: BP 126/68; PULSE 84; RESP 16; TEMP 36.4; O2SAT 93
[2020-11-24 08:00] VITALS: BP 118/69; PULSE 79; RESP 16; O2SAT 93
[2020-11-24 08:05] VITALS: BP 135/72; PULSE 78; RESP 16; TEMP 36.4; O2SAT 94
--- NOTE | 2020-11-24 08:19 | PM.OP ---
Operative Report Date of procedure: November 24, 2020 Pre-op Diagnosis: Right carpal tunnel syndrome Post-op diagnosis: same Post-op Findings: Significant compression and purplish discoloration with hourglass deformity Procedure Done: Right carpal tunnel release Specimens removed/disposition: None Pathology: none sent Surgeon: Gertrude Ward Anesthesia: MAC (With Enoch block) Estimated blood loss (mL): 2 Tourniquet time (min): 33 Tourniquet time: At 250 mmHg IV fluids (mL): 700 Urine output (mL): 0 Urine output: No García Complications: None Condition: stable Disposition: PACU (Then to same-day surgery for discharge to home) Brief History: This 55-year-old woman presented with complaints consistent with carpal tunnel syndrome. She wished to proceed with carpal tunnel release after appropriate education and discussion. Consents were signed. Questions were answered. Procedure: The patient was brought to the operating theater. The patient had a Enoch block with MAC. The tourniquet was elevated to 250 mmHg for a total tourniquet time of 33 minutes. The patient was also given Ancef 2 g preoperatively. The arm was then prepped and draped with DuraPrep in usual fashion with the arm draped free. A surgical pause was performed. At the time of the surgical pause, we confirmed the site and side of surgery. We also confirmed the patient's identity, appropriate and timely administration of preoperative antibiotics and preoperative surgical markings. An incision was then made along the thenar crease. The incision crossed the wrist joint in a curvilinear fashion. Dissection continued through skin and soft tissues using a scalpel. The palmaris longus was identified along with the transverse carpal ligament. Each of these was released carefully to avoid injury to the median nerve. We were able to dissect gently into the carpal canal which was noted to be quite tight with significant compression across the median nerve. The nerve was visualized and was an hourglass shape with purplish discoloration. The canal was subsequently palpated to assure there was no bony encroachment upon the canal. There was a quite thickened fibrous tissue within the canal, and this was opened longitudinally as well. The canal was then palpated distally and proximally to assure that my small finger was passed easily without impingement. Finding this to be so, attention was directed to closure. The wound was irrigated with ropivacaine plain. It was then closed with 3-0 nylon in an interrupted mattress fashion. Sterile dressing was then placed consisting of Dermabond, OpSite, fluffed fluffs, sterile soft roll, and a volar splint wrapped in place with an Clya wrap. The tourniquet was released after 33 minutes. There were no complications. There were no specimens. The procedure was well tolerated. Plan is the patient will be discharged home. Associated Problem List Diagnoses (1) Carpal tunnel syndrome on right:
[2020-11-24 08:33] VITALS: BP 128/72; PULSE 79; RESP 18; TEMP 36.6; O2SAT 96
--- NOTE | 2020-11-24 14:43 | ANE.PACU2 ---
Inpatient post-anesthesia follow up: Airway intact: Yes Vital signs: Temperature 97.8 F Pulse Rate 79 Respiratory Rate 18 Blood Pressure 128/72 Pulse Oximetry 96 Oxygen Delivery Me thod Room Air Oxygen Flow Rate Fraction of Inspir ed Oxygen Hydration adequate: Yes Nausea and vomiting: No Pain level: 1 Mental status: Baseline
== END 2020-11-24 08:45 | disposition home or self-care (01) ==
PROVIDERS: PCP Internal Medicine; Visit Provider Specialist
PROC: (CPT 64721; principal; 2020-11-24 07:00)
DX: G56.01 Carpal tunnel syndrome, right upper limb (principal); E78.5 Hyperlipidemia, unspecified; F41.9 Anxiety disorder, unspecified; F32.9 Major depressive disorder, single episode, unspecified; E11.22 Type 2 diabetes mellitus with diabetic chronic kidney disease; I12.9 Hypertensive chronic kidney disease with stage 1 through stage 4 chronic kidney disease, or unspecified chronic kidney disease; N18.9 Chronic kidney disease, unspecified; M19.90 Unspecified osteoarthritis, unspecified site
CPT/HCPCS: 64721; 36416; 82962; 96374; J0690; J2704; J3010; J3490; J7030

== ENCOUNTER → 2020-12-04 16:22 | Outpatient (BNVA) | payer OTHER, SELFPAY | PROVIDERS: PCP Internal Medicine; Visit Provider Specialist | DX: Z01.812 Encounter for preprocedural laboratory examination (principal); Z20.822 Contact with and (suspected) exposure to COVID-19 | CPT/HCPCS: 87635 ==

== ENCOUNTER 2020-12-08 07:39 | Day surgery (SDC) | payer MEDICAID, SELFPAY ==
[2020-12-07 15:49] VITALS: BMI 33.2
[2020-12-08 07:54] VITALS: BP 183/90; PULSE 93; RESP 18; TEMP 37.1; O2SAT 97
[2020-12-08] MEDS: acetaminophen 1,000 MG/100 ML PIGGYBACK 400 MG IV (08:08)
[2020-12-08] MEDS: sodium chloride 0.9% 1,000 ML 30 ML IV (08:09)
[2020-12-08 08:10] LABS: Glucose Point of Care 198 mg/dL (70-110)
[2020-12-08] MEDS: CELEcoxib 200 mg Capsule 400 MG PO (08:10)
--- NOTE | 2020-12-08 08:19 | ANES.PREANE2 ---
Pre-Anesthetic Assessment Pre-Anesthetic Assessment: Height/Weight: Height 1.52 m Weight 77.111 kg Temp Pulse Resp BP Pulse Ox 98.7 F 93 18 183/90 97 12/08/20 07:54 12/08/20 07:54 12/08/20 07:54 12/08/20 07:54 12/08/20 07:54 Preop Diagnosis: Left carpal tunnel syndrome Proposed Procedure: Operation Date: 12/08/20 09:10 Proposed Procedures p Carpal Tunnel Release 39574 G56.00(Left) - Gertrude Ward MD Was Beta Sybil taken within 24 hours: N/A Was Clonidine taken within 24 hours: N/A Last intake: Intake Last Liquid Date 12/07/20 Last Liquid Time 21:00 Last Solid Date 12/07/20 Last Solid Time 18:00 Social: Social History: No alcohol and No tobacco Exam: Pre-Anes Outpt Exam: alert, oriented x 3, clear to auscultation bilaterally and regular rate & rhythm Airway: Submandibular: WNL Cervical ROM: WNL MP: 2 Dentition: Full CV/HEM: CV/HEM: HTN : : Chronic renal Insufficiency GI: GI: GERD Metabolic: Metabolic: DM and Hyperlipidemia Musc/skel: Musc/skel: Lower Back Pain Neuropsych: Neuropsych: Anxiety and Depression Anesthetic Plan: ASA status: 3 Anesthesia: MAC and Regional (specify below) (Enoch ley) Risk of > 500 ml blood loss (7ml/kg in children): No Meds/Allergies Current Medications: Current Medications Generic Name Dose Route Start Last Admin Trade Name Freq PRN Reason Stop Dose Admin Sodium Chloride 1,000 mls @ 30 ml s/hr 12/08/20 07:15 12/08/20 08:09 Sodium Chloride 0.9% IV 12/09/20 07:14 30 mls/hr .Q24H ARLEEN Administration PFSH Anesthesia PFSH: Medical History Chronic low back pain CKD (chronic kidney disease) Depression DM type 2 (diabetes mellitus, type 2) GERD (gastroesophageal reflux disease) Hyperlipidemia Hypertension Osteoarthritis Pseudotumor cerebri Social History Smoking and tobacco status: never smoked Data Anesthesia Other Labs: Laboratory Results - last 48 hr 12/08/20 08:06 POC Glucose 198 H Cardiac Studies: No Data to Display
--- NOTE | 2020-12-08 08:27 | P.HPUD_ITS ---
Surgery/Procedure H&P Update DATE OF PROCEDURE: December 08, 2020 DATE H&P PERFORMED: 12/04/20 H&P UPDATE INFORMATION: I have reviewed H&P completed within last 30 days, I have examined patient prior to procedure, No changes to prior documentation and H&P is in [facility] EMR on date indicated PREOP DIAGNOSIS: Left carpal tunnel syndrome PLANNED PROCEDURE: Operation Date: 12/08/20 09:10 Proposed Procedures p Left Carpal Tunnel Release [id number] G56.00(Left) - Gertrude Ward MD Related Problem List Diagnoses (1) Carpal tunnel syndrome, left:
[2020-12-08 10:50] VITALS: BP 115/70; PULSE 86; RESP 21; TEMP 36.9; O2SAT 92
[2020-12-08 10:55] VITALS: BP 123/66; PULSE 84; RESP 16; O2SAT 92
[2020-12-08 11:00] VITALS: BP 121/67; PULSE 83; RESP 16; TEMP 36.4; O2SAT 92
[2020-12-08 11:05] VITALS: BP 134/73; PULSE 79; RESP 18; TEMP 36.2; O2SAT 93
--- NOTE | 2020-12-08 11:24 | PM.OP ---
Operative Report Date of procedure: December 08, 2020 Pre-op Diagnosis: Left carpal tunnel syndrome Post-op diagnosis: same Post-op Findings: Significant compression across the carpal canal. Hourglass configuration and purplish discoloration of the median nerve Procedure Done: Left carpal tunnel release Pathology: none sent Surgeon: Gertrude Ward Anesthesia: MAC (With [place] block) Estimated blood loss (mL): 2 Tourniquet time (min): 39 Tourniquet time: At 300 mmHg IV fluids (mL): 600 Urine output (mL): 0 Urine output: No García Complications: None Condition: stable Disposition: PACU (Then to same-day surgery for discharge to home) Brief History: This 55-year-old woman initially presented with complaints consistent with bilateral carpal tunnel syndrome. Approximately 3 weeks ago, the patient underwent right carpal tunnel release. She is pleased with her result and now she wishes to proceed with left carpal tunnel release. She wished to proceed as soon as possible, and the surgery was scheduled for her. Consents were signed. Questions were answered. Procedure: The patient was brought to the operating theater. The patient had a Enoch block with MAC. The tourniquet was elevated to 3000 mmHg for a total tourniquet time of 39 minutes. The patient was also given Ancef 2 g preoperatively. The arm was then prepped and draped with DuraPrep in usual fashion with the arm draped free. A surgical pause was performed. At the time of the surgical pause, we confirmed the site and side of surgery. We also confirmed the patient's identity, appropriate and timely administration of preoperative antibiotics and preoperative surgical markings. An incision was then made along the thenar crease. The incision crossed the wrist joint in a curvilinear fashion. Dissection continued through skin and soft tissues using a scalpel. The palmaris longus was identified along with the transverse carpal ligament. Each of these was released carefully to avoid injury to the median nerve. We were able to dissect gently into the carpal canal which was noted to be quite tight with significant compression across the median nerve. The nerve was visualized and was an hourglass shape with purplish discoloration. The canal was subsequently palpated to assure there was no bony encroachment upon the canal. There was a quite thickened fibrous tissue within the canal, and this was opened longitudinally as well. The canal was then palpated distally and proximally to assure that my small finger was passed easily without impingement. Finding this to be so, attention was directed to closure. The wound was irrigated with ropivacaine plain. It was then closed with 3-0 nylon in an interrupted mattress fashion. Sterile dressing was then placed consisting of Dermabond, OpSite, fluffed fluffs, sterile soft roll, and a volar splint wrapped in place with an Clay wrap. The tourniquet was released after 39 minutes. There were no complications. There were no specimens. The procedure was well tolerated. Plan is the patient will be discharged home. Associated Problem List Diagnoses (1) Carpal tunnel syndrome, left:
[2020-12-08 11:35] VITALS: BP 134/68; PULSE 74; RESP 18; O2SAT 93
--- NOTE | 2020-12-08 15:41 | ANE.PACU2 ---
Inpatient post-anesthesia follow up: Airway intact: Yes Vital signs: Temperature 97.2 F Pulse Rate 74 Respiratory Rate 18 Blood Pressure 134/68 Pulse Oximetry 93 Oxygen Delivery Me thod Room Air Oxygen Flow Rate Fraction of Inspir ed Oxygen Hydration adequate: Yes Nausea and vomiting: No Pain level: 1 Mental status: Baseline
== END 2020-12-08 11:45 | disposition home or self-care (01) ==
PROVIDERS: PCP Internal Medicine; Visit Provider Specialist
PROC: (CPT 64721; principal; 2020-12-08 09:00)
DX: G56.02 Carpal tunnel syndrome, left upper limb (principal); E78.5 Hyperlipidemia, unspecified; F41.9 Anxiety disorder, unspecified; F32.9 Major depressive disorder, single episode, unspecified; M19.90 Unspecified osteoarthritis, unspecified site; E11.22 Type 2 diabetes mellitus with diabetic chronic kidney disease; I12.9 Hypertensive chronic kidney disease with stage 1 through stage 4 chronic kidney disease, or unspecified chronic kidney disease; N18.2 Chronic kidney disease, stage 2 (mild)
CPT/HCPCS: 64721; 36416; 82962; 96365; J0690; J2250; J2704; J3010; J3490; J7030

== ENCOUNTER 2021-01-04 11:25 | Outpatient (CLI) | payer MEDICAID, SELFPAY ==
--- NOTE | 2021-01-04 11:37 | MM_ITS ---
WS: [id number] BILATERAL DIGITAL SCREENING MAMMOGRAPHY WITH CAD CLINICAL INFORMATION: SCREENING HISTORY: Screening mammogram. No current complaints. COMPARISON: October 22, 2019 TECHNIQUE: Bilateral CC and MLO views. FINDINGS: Scattered fibroglandular densities bilaterally. No suspicious focal mass, asymmetry, calcifications, or architectural distortion. No evidence of malignancy. Vascular calcification. A few punctate calcif ications. MM/[place] [id number] IMPRESSION: BI-RADS: 2-Benign FOLLOW UP: 1 Year Follow-up Recommend return to annual screening mammography.
== END 2021-01-04 11:26 | disposition home or self-care (01) ==
LOC: RADSHAW 11:28
PROVIDERS: PCP Internal Medicine; Visit Provider Internal Medicine
DX: Z12.31 Encounter for screening mammogram for malignant neoplasm of breast (principal)
CPT/HCPCS: 77067

== ENCOUNTER 2021-05-03 19:17 | Emergency (ER) | payer OTHER, BC, SELFPAY ==
[2021-05-03 19:40] VITALS: BP 173/97; PULSE 99; RESP 16; TEMP 36.4; O2SAT 97; BMI 32.5
--- NOTE | 2021-05-03 22:40 | CTR_ITS ---
PROCEDURE INFORMATION: Exam: CT Head Without Contrast Exam date and time: 05/03/2021 10:40 PM Age: 55 years old Clinical indication: Other: Neck pain, muscle aches; Headache; Patient HX: Sudden onset; Additional info: BALES TECHNIQUE: Imaging protocol: Computed tomography of the head without contrast. Radiation optimization: All CT scans at this facility use at least one of these dose optimization techniques: automated exposure control; mA and/or kV adjustment per patient size (includes targeted exams where dose is matched to clinical indication); or iterative reconstruction. COMPARISON: MR head wo con* [id number] 02/27/2020 3:55 PM RADIATION DOSE METRICS: Total DLP (mGy-cm): 803.43 FINDINGS: Brain: Normal. No hemorrhage. Unremarkable white matter. No mass effect. Cerebral ventricles: No ventriculomegaly. Paranasal sinuses: Opacification of much of the sphenoid sinus and majority of ethmoid air cells noted. Mastoid air cells: Fluid suspected in the right middle ear and in portion right mastoid air cells. Bones/joints: No acute findings. Soft tissues: Unremarkable. CT/CT head wo con* [id number] IMPRESSION: No acute intracranial abnormality. Sinus inflammatory changes with suspected acute component . Fluid suspected in the right middle ear and portion of right mastoid air cells.
--- NOTE | 2021-05-03 22:51 | ED_ITS ---
HPI - Headache General: Chief Complaint: Headache Stated Complaint: headache, neck pain,n/v Time Seen by Provider: 05/03/21 22:32 Source: patient Mode of arrival: ambulatory Limitations: no limitations History of Present Illness: HPI Narrative: 55-year-old female who states that today she has not been feeling very well states starting at 5 PM started having chills body aches and sudden onset headache states headache is currently an 8 out of 10 with muscle aches and pain in her neck and back and legs. 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 She is fully vaccinated. She denies any fevers but has had chills and a slight cough denies any vomiting diarrhea denies any worsening improving factors. Associated symptoms: Deny chest pain, nausea, rash or vomiting Review of Systems Const: Reports: chills Eyes: Denies: blurry vision or eye discomfort ENMT: Denies: throat pain or dental pain Card: Denies: chest pain Resp: Denies: dyspnea GI: Denies: abdominal pain, nausea, vomiting or diarrhea : Denies: dysuria Musc: Denies: neck pain or back pain Skin/Breast: Denies: rash Neuro: Reports: headache(s) Psych: Denies: depression Damián/Lymph: Denies: easy bruising All/Imm: Denies: urticaria PFSH ED PFSH: Medical History Chronic low back pain CKD (chronic kidney disease) Depression DM type 2 (diabetes mellitus, type 2) GERD (gastroesophageal reflux disease) Hyperlipidemia Hypertension Osteoarthritis Pseudotumor cerebri Social History (Updated 05/03/21 @ 22:52 by Radha Marie MD) Substance/Drug Use: never Physical Exam Const: COMMON NORMALS: no acute distress, patient oriented x3 and healthy appearing HENMT: COMMON NORMALS: normocephalic and atraumatic HEAD & SCALP: normocephalic and atraumatic Eye: COMMON NORMALS: Equal, round and reactive pupils present and EOMs intact bilaterally PUPIL: Yes Equal, round and reactive pupils present Neck/C-Spine: COMMON NORMALS: full ROM and no meningeal signs Chest: COMMONS NORMALS: normal inspection of the chest and normal palpation of entire chest wall Resp: COMMON NORMALS: normal respiratory effort, No retractions, No use of accessory muscles and clear to auscultation bilaterally AUSCULTATION: clear to auscultation bilaterally Cardio: COMMON NORMALS: regular rate, regular rhythm and No murmurs present (Cardio) RATE: regular rate RHYTHM: regular rhythm GI: COMMON NORMALS: Normal to inspection, nondistended, normoactive bowel sounds present, Soft to palpation, non-tender and no masses PALPATION: Yes Soft to palpation Extremity: COMMON NORMALS: normal to inspection and full ROM Neuro: COMMON NORMALS: patient oriented x3, moves all extremities and no focal motor deficits MENINGEAL SIGNS: Yes no meningeal signs Psych: COMMON NORMALS: mental status grossly normal, Normal thought process present and cooperative THOUGHT PROCESS: Normal thought process present Skin: COMMON NORMALS: no rashes or lesions noted and no wounds GENERAL SKIN EXAM: no rashes or lesions noted Course Vital Signs: Vital signs: Vital Signs Temperature 97.6 F 05/03/21 19:40 Pulse Rate 99 05/03/21 19:40 Respiratory Rate 16 05/03/21 19:40 Blood Pressure 173/97 05/03/21 19:40 Pulse Oximetry 97 05/03/21 19:40 MDM - Headache MDM Narrative: Medical decision making narrative: Patient presents here with headache along with hypertension she is well-appearing here headache resolved after Toradol head CT blood work is all normal no signs of meningitis or subar achnoid hemorrhage or aneurysm she is stable for discharge is to follow-up with PCP and return if worsening. Lab Data: Labs: Lab Results 05/03/21 05/03/21 05/03/21 23:00 23:00 23:08 WBC 7.9 10^3/uL 10^3/ uL (4.0-10.0) RBC 4.02 10^6/uL L 10 ^6/uL (4.1-5.3) Hgb 11.9 g/dL g/dL (11.5-15.3) Hct 36.5 % L % (37.0-47.0) MCV 90.8 fl fl (81-99) MCH 29.6 pg pg (28.0-34.0) MCHC 32.6 g/dL g/dL (30.0-36.0) RDW 14.7 % % (12.1-15.1) Plt Count 235 10^3/cmm 10^3 /cmm (130-400) MPV 11.1 fL H fL (7.4-10.4) Neut % (Auto) 55.7 % % Lymph % (Auto) 32.4 % % [place] % (Auto) 7.3 % % Eos % (Auto) 3.8 % % Baso % (Auto) 0.3 % % Neut # (Auto) 4.42 10^3/uL 10^3 /uL (1.8-7.7) Lymph # (Auto) 2.6 10^3/uL 10^3/ uL (0.8-4.8) [place] # (Auto) 0.6 10^3/uL 10^3/ uL (0.2-0.9) Eos # (Auto) 0.3 10^3/uL 10^3/ uL (0.0-0.8) Baso # (Auto) 0.0 10^3/uL 10^3/ uL (0.0-0.1) Nucleated RBC % (a uto) 0 % % Nucleated RBCs # 0.0 /100WBC /100W BC Sodium Potassium Chloride Carbon Dioxide Anion Gap BUN Creatinine GFR Calculation Glucose Calculated Osmolal ity Calcium Total Bilirubin AST ALT Alkaline Phosphata se Total Protein Albumin Globulin Urine Color Yellow (Yellow) Urine Appearance Clear (CLEAR) Urine pH 5 (5-7) Ur Specific Gravit y 1.020 (1.005-1.030) Urine Protein 2+ H (Negative) Urine Glucose (UA) Norm (Normal) Urine Ketones Negative (Negative) Urine Blood Neg (Negative) Urine Nitrate Negative (Negative) Urine Bilirubin Neg (Negative) Urine Urobilinogen Norm mg/dL mg/dL (Negative) Ur Leukocyte Telma ase Negative (Negative) Urine RBC 0-4 /hpf H /hpf (0-2) Urine WBC 0-4 /hpf H /hpf (0-5) Ur Squamous Epith Cells 0-4 /hpf H /hpf (0-5) Amorphous Sediment Not Reportable Urine Bacteria Trace /hpf /hpf (NONE) Urine Mucus Trace /hpf /hpf SARS-CoV-2 Ag (Rap id) Negative (Negative) 05/03/21 23:08 WBC RBC Hgb Hct MCV MCH MCHC RDW Plt Count MPV Neut % (Auto) Lymph % (Auto) [place] % (Auto) Eos % (Auto) Baso % (Auto) Neut # (Auto) Lymph # (Auto) [place] # (Auto) Eos # (Auto) Baso # (Auto) Nucleated RBC % (a uto) Nucleated RBCs # Sodium 138 mmol/L mmol/L (136-145) Potassium 3.7 mmol/L mmol/L (3.5-5.1) Chloride 101 mmol/L mmol/L (98-107) Carbon Dioxide 19 mmol/L L mmol/ L (22-29) Anion Gap 21.7 H (5-19) BUN 21 mg/dL H mg/dL (6-20) Creatinine 0.7 mg/dL mg/dL (0.5-0.9) GFR Calculation 86.9 mL/min L mL/ min (90-130) Glucose 117 mg/dL H mg/dL (65-115) Calculated Osmolal ity 290 mOsm/kg mOsm/ kg (285-295) Calcium 9.0 mg/dL mg/dL (8.5-10.5) Total Bilirubin 0.2 mg/dL mg/dL (0.15-1.2) AST 39 U/L H U/L (0-32) ALT 34 U/L H U/L (0-33) Alkaline Phosphata se 90 IU/L IU/L (35-105) Total Protein 6.9 g/dL g/dL (6.6-8.7) Albumin 4.4 g/dL g/dL (3.5-5.2) Globulin 2.5 g/dL g/dL (1.3-4.6) Urine Color Urine Appearance Urine pH Ur Specific Gravit y Urine Protein Urine Glucose (UA) Urine Ketones Urine Blood Urine Nitrate Urine Bilirubin Urine Urobilinogen Ur Leukocyte Telma ase Urine RBC Urine WBC Ur Squamous Epith Cells Amorphous Sediment Urine Bacteria Urine Mucus SARS-CoV-2 Ag (Rap id) Discharge Plan Discharge Patient Disposition: Home Clinical Impression: Hypertension, Headache Condition: Stable Prescriptions: No Action levofloxacin 500 mg tablet 500 mg PO DAILY 15 Days Qty: 15 RF: 0 Benadryl 1 - 2 cap PO PRN RF: 0 losartan 50 mg tablet 50 mg PO DAILY RF: 0 Aspir-81 81 mg PO DAILY RF: 0 bupropion HCl 100 mg tablet 100 mg PO DAILY RF: 0 alprazolam [Xanax] 0.25 mg Tablet 0.25 mg PO BID PRN (Reason: UNKNOWN) RF: 0 multivitamin 1 tab PO DAILY RF: 0 Lantus U-100 Insulin 100 unit/mL Solution 50 unit SUBCUT BID RF: 0 simvastatin 40 mg Tablet 40 mg PO DAILY RF: 0 fluoxetine 20 mg capsule 20 mg PO DAILY RF: 0 metformin 500 mg tablet extended release 24 hr 1,000 mg PO BID RF: 0 loratadine 10 mg Tablet 10 mg PO BEDTIME RF: 0 cholecalciferol (vitamin D3) [Vitamin D3] 25 mcg (1,000 unit) Tablet 25 mcg PO DAILY RF: 0 omega-3 fatty acids 500 mg Capsule 500 mg PO QPM RF: 0 esomeprazole magnesium 20 mg Tablet,Delayed Release (Dr/Ec) 20 mg PO DAILY RF: 0 Discharge Orders: Discharge ED (Routine); Ordered 05/04/21 Ordered By: Radha Marie Referrals: Filiberto Rutherford DO [Primary Care Provider] - Discharge Diet: Advance as tolerated Discharge Activity: Resume usual activity Patient Instructions: Acute Headache (ED) Coding Level of Care Code ED Derrick Builder for Chg Fwd Exam Comprehensive
[2021-05-03 23:15] LABS: Basophils % 0.3 %; Eosinophils # 0.3 10^3/uL (0.0-0.8); Eosinophils % 3.8 %; Hematocrit 36.5 % (37.0-47.0); Hemoglobin 11.9 g/dL (11.5-15.3); Lymphocytes # 2.6 10^3/uL (0.8-4.8); Lymphocytes % 32.4 %; Mean Corpuscular HGB Conc 32.6 g/dL (30.0-36.0); Mean Corpuscular Hemoglobin 29.6 pg (28.0-34.0); Mean Corpuscular Volume 90.8 fl (81-99); Mean Platelet Volume 11.1 fL (7.4-10.4); Monocytes # 0.6 10^3/uL (0.2-0.9); Monocytes % 7.3 %; Neutrophils # 4.42 10^3/uL (1.8-7.7); Neutrophils % 55.7 %; Nucleated Red Blood Cells % 0 %; Platelet Count 235 10^3/cmm (130-400); Red Blood Count 4.02 10^6/uL (4.1-5.3); Red Cell Distribution Width 14.7 % (12.1-15.1); White Blood Count 7.9 10^3/uL (4.0-10.0)
[2021-05-03] MEDS: ketorolac 30 mg/mL INJ 15 MG IVP (23:20)
[2021-05-03] MEDS: ondansetron 2 mg/ML SDV 2 mL 4 MG IVP (23:20)
[2021-05-03] MEDS: sodium chloride 0.9% 1,000 ML 999 ML IV (23:20)
[2021-05-03 23:27] LABS: Add Urine Microscopic? YES; Bacteria Urine TRACE /hpf; Bilirubin Urine Neg (Negative); Blood Urine Neg (Negative); Glucose Urine UA Norm (Normal); Ketones Urine Negative (Negative); Leukocyte Esterase Urine Negative (Negative); Mucus Urine TRACE /hpf; Nitrate Urine Negative (Negative); Protein Urine 2+ (Negative); RBC Urine 0-4 /hpf (0-2); Squamous Epithelial Cell Urine 0-4 /hpf (0-5); Urine Appearance Clear (CLEAR); Urine Color Yellow (Yellow); Urobilinogen Urine Norm (Negative); WBC Urine 0-4 /hpf (0-5); pH Urine 5 (5-7)
[2021-05-03 23:41] LABS: SARS Covid-2 Antigen Negative (Negative)
[2021-05-03 23:45] LABS: Alanine Aminotransferase 34 U/L (0-33); Albumin Level 4.4 g/dL (3.5-5.2); Alkaline Phosphatase 90 IU/L (35-105); Anion Gap 21.7 (5-19); Aspartate Amino Transferase 39 U/L (0-32); Blood Urea Nitrogen 21 mg/dL (6-20); Carbon Dioxide 19 mmol/L (22-29); Chloride 101 mmol/L (98-107); Globulin 2.5 g/dL (1.3-4.6); Glomerular Filtration Rate 86.9 mL/min (90-130); Glucose 117 mg/dL (65-115); Osmolality Calculated 290 mOsm/kg (285-295); Potassium 3.7 mmol/L (3.5-5.1); Sodium 138 mmol/L (136-145); Total Bilirubin 0.2 mg/dL (0.15-1.2); Total Protein 6.9 g/dL (6.6-8.7)
== END 2021-05-04 01:01 | disposition home or self-care (01) ==
PROVIDERS: Emergency Provider Emergency Medicine; PCP Internal Medicine
DX: R51.9 Headache, unspecified (principal); I10 Essential (primary) hypertension; Z79.84 Long term (current) use of oral hypoglycemic drugs; Z79.82 Long term (current) use of aspirin; Z79.4 Long term (current) use of insulin; E11.9 Type 2 diabetes mellitus without complications; E78.5 Hyperlipidemia, unspecified
CPT/HCPCS: 70450; 80053; 81001; 85025; 87426; 96361; 96374; 96375; 99283; J1885; J2405; J7030

== ENCOUNTER → 2021-05-21 14:10 | Outpatient (BNVA) | payer OTHER, BC, MEDICAID, SELFPAY | PROVIDERS: PCP Internal Medicine; Visit Provider Otolaryngology | DX: Z01.812 Encounter for preprocedural laboratory examination (principal); Z20.822 Contact with and (suspected) exposure to COVID-19 | CPT/HCPCS: 87635 ==

== ENCOUNTER → 2021-06-04 12:56 | Outpatient (BNVA) | payer OTHER, BC, MEDICAID, SELFPAY | PROVIDERS: PCP Internal Medicine; Visit Provider Otolaryngology | DX: Z01.812 Encounter for preprocedural laboratory examination (principal); Z20.822 Contact with and (suspected) exposure to COVID-19 | CPT/HCPCS: 87635 ==

== ENCOUNTER 2021-06-07 07:30 | Day surgery (SDC) | payer OTHER, BC, MEDICAID, SELFPAY ==
[2021-06-06 13:47] VITALS: BMI 32.5
[2021-06-07] VITALS (10 sets, daily range): BP systolic 138–199; BP diastolic 51–94; PULSE 79–107; RESP 16–18; TEMP 36.2–36.7; O2SAT 93–98
[2021-06-07 08:12] LABS: Glucose Point of Care 106 mg/dL (70-110)
--- NOTE | 2021-06-07 09:06 | W.PM.OPSUD ---
Surgery/Procedure H&P Update DATE OF PROCEDURE: June 07, 2021 DATE H&P PERFORMED: 05/16/21 H&P UPDATE INFORMATION: I have reviewed H&P completed within last 30 days, I have examined patient prior to procedure and No changes to prior documentation PREOP DIAGNOSIS: Chronic sinusitis/deviated nasal septum/chronic otitis media right ear PRIMARY INDICATION FOR PROCEDURE: Chronic bilateral ethmoid and bilateral sphenoid sinusitis as well as deviated nasal septum. Patient also has chronic otitis media involving the right ear. PLANNED PROCEDURE: Operation Date: 06/07/21 09:25 Proposed Procedures p alexandr ethmoidectomy & sphenoidectomy [id number]/h65.31/j34.2/j32.9/05423(Bilateral) - Fracisco Montero MD s Myringotomy and Tubes(Bilateral) - Fracisco Montero MD s Septoplasty(Not Applicable) - Fracisco Montero MD
--- NOTE | 2021-06-07 09:29 | P.ANESASSM_ITS ---
Pre-Anesthetic Assessment Height/Weight: Height 1.52 m Weight 75.75 kg Temp Pulse Resp BP Pulse Ox 97.2 F L 88 16 181/88 98 06/07/21 08:05 06/07/21 08:05 06/07/21 08:05 06/07/21 08:05 06/07/21 08:05 Preop Diagnosis: Chronic sinusitis/deviated nasal septum/chronic otitis media right ear Operation Date: 06/07/21 09:25 Proposed Procedures p aleaxndr ethmoidectomy & sphenoidectomy [id number]/j34.2/[id number](Bilateral) - Fracisco Montero MD s Myringotomy and Tubes(Bilateral) - Fracisco Montero MD s Septoplasty(Not Applicable) - Fracisco Montero MD Familial anesthetic complications: Cardiac arrest intra op, patient states suspected air embolus from laparoscope Was Beta Sybil taken within 24 hours: N/A Was Clonidine taken within 24 hours: N/A Last intake: Intake Last Liquid Date 06/06/21 Last Liquid Time 23:40 Last Solid Date 06/06/21 Last Solid Time 23:40 Social No alcohol and No tobacco Exam alert, oriented x 3, clear to auscultation bilaterally and regular rate & rhythm Airway Submandibular: within normal limits Cervical ROM: within normal limits Mallampati: Class II Dentition: chipped Pulmonary None reported CV/HEM Hypertension METS = 4 Chronic Renal Insufficiency (Stage 4 diabetic renal disease ) GI Gastroesophageal Reflux Disease Metabolic Diabetes Mellitus Musc/skel Lower Back Pain and Osteoarthritis/DJD Neuropsych Depression and Neuropathy (Diabetic neuropathy ) Anesthetic Plan ASA status: 3 (55 year old diabetic with end organ dysfuction.) Anesthesia: Anesthesia Evaluation and General Other: We discussed risk and benefits of general anesthesia including PONV, sore throat (sometimes severe), corneal abrasion, positioning and peripheral nerve injuries, life threatening allergic reaction, post operative ICU admission requiring prolonged intubation, stroke, heart attack, , and rare incidences of re call. Patient consents to proceed with general anesthesia. Risk of > 500 ml blood loss (7ml/kg in children): No Medications/Allergies Home Medications Medication Instructions Recorded Confirmed Last Taken Type cholecalciferol (vitamin D3) 25 25 mcg PO DAILY 02/22/20 06/07/21 06/06/21 History mcg (1,000 unit) tablet (Vitamin D3) esomeprazole magnesium 20 mg 20 mg PO DAILY 02/22/20 06/07/21 06/06/21 History tablet,delayed release fluoxetine 20 mg capsule 20 mg PO DAILY 02/22/20 06/07/21 06/06/21 History insulin glargine 100 unit/mL 50 unit SUBCUT BID 02/22/20 06/07/21 06/06/21 History subcutaneous solution (Lantus U-100 Insulin) loratadine 10 mg tablet 10 mg PO BEDTIME 02/22/20 06/07/21 06/06/21 History metformin 500 mg tablet,extended 1,000 mg PO BID 02/22/20 06/07/21 06/06/21 History release 24 hr omega-3 fatty acids 500 mg capsule 500 mg PO QPM 02/22/20 06/07/21 06/06/21 History simvastatin 40 mg tablet 40 mg PO DAILY 02/22/20 06/07/21 06/06/21 History losartan 50 mg tablet 50 mg PO DAILY 02/27/20 06/07/21 06/06/21 History Aspir-81 81 mg PO DAILY 10/15/20 06/06/21 05/23/21 History bupropion HCl 100 mg tablet 100 mg PO DAILY 10/15/20 06/07/21 06/06/21 History multivitamin 1 tab PO DAILY 10/15/20 06/07/21 06/06/21 History fluticasone propionate 50 50 mcg INTRANASAL BID 06/06/21 06/07/21 06/06/21 History mcg/actuation nasal spray,suspension Allergies Allergy/AdvReac Type Severity Reaction Status Date / Time No Known Allergies Allergy Verified 06/06/21 13:28 [facility] Anesthesia Medical History Chronic low back pain CKD (chronic kidney disease) Depression DM type 2 (diabetes mellitus, type 2) GERD (gastroesophageal reflux disease) Hyperlipidemia Hypertension Osteoarthritis Pseudotumor cerebri Social History Smoking and tobacco status: never smoked Data Anesthesia Cardiac Studies: No Data to Display
[2021-06-07] MEDS: ofloxacin 0.3% Op Soln 5 mL Btl 3 DROP XX (10:06)
[2021-06-07] MEDS: oxymetazoline 0.05% Nasal Spray 15 mL 100 SPRAY (10:06)
[2021-06-07] MEDS: neomycin-poly-bacitracin oint 28 gm 1 APPLIC TOPICAL (10:29)
--- NOTE | 2021-06-07 11:04 | P.OP_ITS ---
Operative Report Date of procedure: June 07, 2021 Pre-op diagnosis: Preop Diagnosis Chronic sinusitis/deviated nasal septum/chronic otitis media right ear Post-op diagnosis: Chronic bilateral ethmoid and bilateral sphenoid sinusitis. Deviated nasal septum. Chronic mucoid otitis media right ear. Post-op findings: Thick mucoid fluid in right middle ear. Mucosal thickening and polypoid changes within all 4 operated on sinuses. Procedure done: Endoscopic bilateral total ethmoidectomy/ endoscopic bilateral sphenoidectomy/septoplasty/left middle turbinate resection/right myringotomy and Dura-Vent tube insertion Implants: 2 Dura-Vent tubes Septal splints 2 Telfa packs Specimens removed/disposition: Contents of left ethmoid and sphenoid sinuses and left middle turbinate. Contents of right ethmoid and sphenoid sinuses. Pathology: Contents of sinuses involving bilateral ethmoid and bilateral sphenoid sinuses and left middle turbinate tissue. Surgeon: Fracisco Montero MD Anesthesia: General and Local Estimated blood loss: 50 mL Complications: No complications encountered Findings: Right middle ear contain thick mucoid fluid. Septum was deviated anteriorly to the left side and posteriorly to the right side. Large spurs in both directions. Left middle turbinate was massive obstructive. Contents of both ethmoid sinuses and both sphenoid sinuses showed polypoid changes and thickened mucous membrane and thick inspissated mucus. Brief History: 55-year-old female patient is battled chronic nasal breathing problems and chronic sinusitis for years. She has failed to be controlled with conservative measures. She failed nasal steroid sprays and antibiotics. She failed sinus rinses. Exam showed that she had a severely deviated nasal septum and chronic ethmoid and sphenoid sinusitis changes. The right middle ear has also been a long-term problem for the patient and was found to have chronic mucoid otitis m edia. She is being brought to the operating room at this time to undergo endoscopic bilateral total ethmoidectomy and bilateral sphenoidectomy septoplasty and right myringotomy with tube insertion. The procedure its risks and complications have been explained in detail to the patient in the office setting. These risks include bleeding infection numbness scarring swelling bruising septal hematoma abscess or perforation change in sense of smell nasal dryness recurrent problems need for additional treatment potential injury to orbit and orbital contents including loss of vision or blurred vision potential injury causing CSF leak meningitis brain abscess heart attack stroke or . Other risks include hearing loss balance system disturbance facial nerve weakness change in taste sensation foreign body reaction cholesteatoma formation need for additional tubes in the future need for repair perforations in the future and more serious risks again associated with anesthesia. With all these things understood informed consent was granted and witnessed. Procedure: Description of procedure: The patient was placed on the operating table in the supine position. Adequate general endotracheal tube anesthesia was obtained. She was given Ancef IV for prophylaxis. She was repositioned into a semirecumbent position. A timeout was accomplished identifying the patient date of plan procedure allergies fire risk and medications given. With all in agreement the procedure continued. A microscope was used to view through an ear speculum the right external canal. No debris was present. The tympanic membrane was easily visualized. A myringotomy knife was used to create a radial incision in the anterior inferior portion of the tympanic membrane. The middle ear was suctioned clean of thick mucoid fluid with the addition of hydrogen peroxide to thin it. Then a Dura-Vent tube was selected inserted and positioned. This was followed by additional peroxide and then ofloxacin drops with cotton placed at the meatus. Attention was then turned to the prep for the nasal and sinus surgery. The patient's nose was packed with cottonoids soaked in 12-hour Afrin. Nasal hairs were trimmed with scissors. The packs were removed and the septum and middle meatus and turbinates were infiltrated with local bilaterally. A total of 11.9 mL of 2% Xylocaine with 1-100,000 epinephrine was utilized. Afrin packs were reapplied to the nose and the patient was prepped and draped in usual fashion for nasal and sinus procedure. The eyes were left uncovered. The packs were once again removed from the nose. It was elected to perform the septoplasty first. The inferior turbinates were outfractured with a [place] elevator. A left hemitransfixion incision was created with a 15 blade carrying it down to the level of septal cartilage. A [place] elevator was then used to elevate the mucoperichondrial periosteal flap in all directions. What was found then was the quadrangular cartilage had definitely been fractured in the past. There was an overriding portion of the quadrangular cartilage inferiorly off to the left side overriding the maxillary crest. All this redundancy was resected with a half round knife and Hallie forceps. Then the quadrangular cartilage was disarticulated from the perpendicular plate of the ethmoid and vomer and a posterior tunnel was created on the right side. Then the severely deviated bony segments were resected in a piecemeal fashion with Hallie forceps. A telescoping portion of quadrangular cartilage that extended posteriorly off the crest to the left side was resected as well. With this accomplished the septum now rested in a good straight midline position. Drain holes were created bilaterally to prevent hematoma formation. Using endoscopic visualization and direct visualization attention was turned to the left middle meatus and ethmoid. The middle turbinate was found to be extremely thick and virtually no room available in that area. Therefore a portion of the anterior segment of the middle turbinate was resected with up-biting through-cutting forceps. This was solid and not found to have a galdino bullosa. The dissection was then carried out using 30 degree endoscope to visualize the ethmoid bulla entering it anteriorly and removing the bulla and thickened polypoid type changes within the sinus. There was thick inspissated mucus as well. After the anteriormost cells were removed the posterior ethmoidectomy was accomplished in a similar fashion under endoscopic visualization. As much membrane is could be left intact was left intact. Attention was then turned to the sphenoid sinus. To try and get the face of the sphenoid sinus exposed the middle turbinate was still too hypertrophic. Almost all the middle turbinate was resected. Just the posterior aspect was left intact. Now the face of the sphenoid sinus could be evaluated and this was entered into with through-cutting forceps with 30 degree visualization. Then straight Hallie forceps and through-cutting forceps were used to remove the contents of the sinus again leaving as much mucous membrane as possible. Once this was accomplished attention was turned to the right side. A similar procedure was performed on the right anterior and posterior ethmoid cells and the sphenoidectomy. The middle turbinate on the right side was small and was not resected in any fashion. After all the debris was removed the areas were irrigated and suctioned. With no sign of active bleeding the left hemitransfixion incision was closed loosely with interrupted 4-0 chromic suture. 2 septal splints were then coated with Neosporin and 1 applied to each side of the septum. These were sutured in a through and through fashion with 3-0 Prolene. 2 Telfa packs were then cut to size coated with Neosporin and 1 was applied each side of the nose. The face was then cleansed. The mouth was suctioned clean. There was no sign of any active bleeding posteriorly. A drip pad was applied under the patient's nose drapes were removed and the patient was returned to anesthesia for wake-up and extubation. The patient tolerated the procedure well and estimated blood loss of 50 mL and arrived in recovery in stable condition.
[2021-06-07] MEDS: TRAMadol 50 mg Tablet PO (12:14)
--- NOTE | 2021-06-07 14:34 | ANE.PACU2 ---
Inpatient post-anesthesia follow up: Airway intact: Yes Vital signs: Temperature 98.0 F Pulse Rate 82 Respiratory Rate 18 Blood Pressure 152/82 Pulse Oximetry 96 Oxygen Delivery Me thod Room Air Oxygen Flow Rate 6 Fraction of Inspir ed Oxygen Hydration adequate: Yes Nausea and vomiting: No Pain level: 1 Mental status: Baseline
--- NOTE | 2021-06-11 07:57 | W.PM.OPSUD ---
Surgery/Procedure H&P Update DATE OF PROCEDURE: June 11, 2021 DATE H&P PERFORMED: 05/23/21 PREOP DIAGNOSIS: Chronic sinusitis/deviated nasal septum/chronic otitis media right ear PLANNED PROCEDURE: Operation Date: 06/07/21 09:25 Proposed Procedures p alexandr ethmoidectomy & sphenoidectomy [id number]/h65.31/j34.2/j32.9/96194(Bilateral) - Fracisco Montero MD s Myringotomy and Tubes(Bilateral) - Fracisco Montero MD s Septoplasty(Not Applicable) - Fracisco Montero MD
== END 2021-06-07 12:40 | disposition home or self-care (01) ==
PROVIDERS: PCP Internal Medicine; Visit Provider Otolaryngology
PROC: (CPT 30520; principal; 2021-06-07 09:25)
PROC: (CPT 69420; 2021-06-07 09:25)
PROC: (CPT 30520; 2021-06-07 09:25)
DX: J32.9 Chronic sinusitis, unspecified (principal); J34.2 Deviated nasal septum; H65.31 Chronic mucoid otitis media, right ear; K21.9 Gastro-esophageal reflux disease without esophagitis; E11.22 Type 2 diabetes mellitus with diabetic chronic kidney disease; I12.9 Hypertensive chronic kidney disease with stage 1 through stage 4 chronic kidney disease, or unspecified chronic kidney disease; N18.4 Chronic kidney disease, stage 4 (severe); M47.896 Other spondylosis, lumbar region; Z79.82 Long term (current) use of aspirin; E78.5 Hyperlipidemia, unspecified
CPT/HCPCS: 30520; 31259; 69420; 36416; 82962; 88307; J0690; J1100; J1200; J2250; J2405; J2704; J2710; J3010; J3490

== ENCOUNTER → 2021-09-06 08:08 | Outpatient (BNVA) | payer OTHER, BC, MEDICAID, SELFPAY | PROVIDERS: Visit Provider Internal Medicine | DX: J98.9 Respiratory disorder, unspecified (principal); R50.9 Fever, unspecified | CPT/HCPCS: 87635 ==

== ENCOUNTER 2021-10-05 11:51 | Outpatient (CLI) | payer OTHER, BC, MEDICAID, SELFPAY ==
--- NOTE | 2021-10-05 12:01 | CT_ITS ---
WS: [id number] CT ABDOMEN AND PELVIS NONCONTRAST HISTORY: LUMBAR PAIN, generalized abdominal pain for 2 months. TECHNIQUE: Imaging performed through the abdomen and pelvis. Coronal and sagittal reformats are submi tted. All CT scans at [facility] use at least one of these dose optimization techniques: auto mated exposure control; mA and/or kV adjustment per patient size (includes targeted exams where dose is matched to clinical indication); or iterative reconstruction. DLP: 1046.45 mGy.cm COMPARISON: 08/08/2020 Lower thorax: Breathing motion artifact at the lung bases. Nodules would easily be obscured with this amount of motion. Heart size is normal. Small hiatal hernia. Liver: Massive hepatomegaly. The liver extends for 23.6 cm in length. Low-attenuation throughout the liver. No mass identified on this unenhanced study. Similar findings on the prior exam. Gallbladder: Contracted gallbladder. No adjacent inflammation. No common bile duct dilatation. Pancreas: Poorly visualized pancreas. No abnormality identified. Spleen: Moderate splenomegaly. Spleen measures 12.5 cm in length. Similar to the prior study. Adrenal glands: Normal. No mass. Right kidney: Normal size kidney with no mass or hydronephrosis. Left kidney: Normal size kidney. Complex cyst lower pole extends anterior from the renal cortex measu ring 2.0 x 2.3 cm. Similar to the prior study. No obstruction. Aorta: Mild atherosclerosis abdominal aorta with no aneurysm. No free fluid, intraperitoneal air or significant lymphadenopathy. GI tract: Stomach is moderately well distended with food products. There is mild diffuse wall thicken ing measuring up to 15 mm. No obstruction. No small bowel obstruction or dilatation. Extensive divert icular disease throughout the colon. No evidence for acute diverticulitis. Normal appendix. High dens ity material within the colon. May be minimal disc signal. No recent oral contrast has been provided by radiology. Abdominal wall: Negative. No hernia. Pelvis: Prior hysterectomy. No free fluid or adenopathy in the pelvis. Nondistended urinary bladder. Osseous structures: Unremarkable. CT/CT kidney stone [id number] IMPRESSION: 1. Severe hepatomegaly and hepatic steatosis. Similar to the prior study of . 2. Moderate splenomegaly. 3. No renal obstruction. 4. Contracted gallbladder, probably due to a nonfasting state. 5. Marked distention of the stomach with food products. May be due to a recent meal. If patient has not recently eaten gastroparesis should be considered. 6. Pandiverticulosis without acute diverticulitis. 7. Prior hysterectomy. 8. Minimally complex but stable cyst LEFT kidney.
== END 2021-10-05 11:52 | disposition home or self-care (01) ==
LOC: RAD 11:52
PROVIDERS: Visit Provider Internal Medicine
DX: R10.84 Generalized abdominal pain (principal); R16.0 Hepatomegaly, not elsewhere classified; K76.0 Fatty (change of) liver, not elsewhere classified; R16.1 Splenomegaly, not elsewhere classified; N28.1 Cyst of kidney, acquired
CPT/HCPCS: 74176

== ENCOUNTER 2021-10-08 07:53 | Day surgery (SDC) | payer OTHER, BC, MEDICAID, SELFPAY ==
[2021-10-05 10:08] VITALS: BMI 32.5
--- NOTE | 2021-10-08 07:36 | P.HP_ITS ---
Same Day Surgery H&P Indication for Procedure/HPI DATE OF PROCEDURE: October 08, 2021 CHIEF COMPLAINT/INDICATIONFOR SURGICAL PROCEDURE: History of colon polyp PREOP DIAGNOSIS: Chronic sinusitis/deviated nasal septum/chronic otitis media right ear PLANNED PROCEDURE: Operation Date: 10/08/21 08:50 Proposed Procedures p [id number](Not Applicable) - Richie Alvarez MD Medications/Allergies* Home Medications Medication Instructions Recorded Confirmed Type cholecalciferol (vitamin D3) 25 25 mcg PO DAILY 02/22/20 10/05/21 History mcg (1,000 unit) tablet (Vitamin D3) esomeprazole magnesium 20 mg 20 mg PO DAILY 02/22/20 10/05/21 History tablet,delayed release fluoxetine 20 mg capsule 20 mg PO DAILY 02/22/20 10/05/21 History loratadine 10 mg tablet 10 mg PO BEDTIME 02/22/20 10/05/21 History metformin 500 mg tablet,extended 1,000 mg PO BID 02/22/20 10/05/21 History release 24 hr omega-3 fatty acids 500 mg capsule 500 mg PO QPM 02/22/20 10/05/21 History simvastatin 40 mg tablet 40 mg PO DAILY 02/22/20 10/05/21 History losartan 50 mg tablet 50 mg PO DAILY 02/27/20 10/05/21 History Aspir-81 81 mg PO DAILY 10/15/20 10/05/21 History bupropion HCl 100 mg tablet 100 mg PO DAILY 10/15/20 10/05/21 History multivitamin 1 tab PO DAILY 10/15/20 10/05/21 History fluticasone propionate 50 50 mcg INTRANASAL BID 06/06/21 10/05/21 History mcg/actuation nasal spray,suspension tizanidine 2 mg tablet 2 mg PO Q8H PRN 09/05/21 10/05/21 History bismuth subsalicylate 262 mg/15 mL 524 mg PO Q30M PRN 10/04/21 10/05/21 History oral suspension (Pepto-Bismol) calcium carbonate 200 mg calcium 200 mg PO Q4H PRN tab 10/04/21 10/05/21 History (500 mg) chewable tablet (Tums) zinc amino acid chelate 50 mg 50 mg PO DAILY 10/04/21 10/05/21 History tablet Allergies/Adverse Reactions Allergy/AdvReac Type Severity Reaction Status Date / Time No Known Allergies Allergy Verified 10/05/21 10:04 Pertinent History/Comorbid Conditions* Medical History (Updated 10/04/21 @ 11:15 by Richie Alvarez MD) Chronic low back pain CKD (chronic kidney disease) Depression DM type 2 (diabetes mellitus, type 2) GERD (gastroesophageal reflux disease) Hyperlipidemia Hypertension Osteoarthritis Pseudotumor cerebri Surgical History (Updated 09/28/21 @ 11:58 by Fracisco Montero MD) Hx of nasal septoplasty Family History (Updated 10/04/21 @ 09:48 by Cheryl Brown) Diabetes CAD (coronary artery disease) Lung disease Cancer Hypertension Stroke Social History Smoking and tobacco status: never smoked Pertinent Exam Findings alert, oriented x 3, clear to auscultation bilaterally, regular rate & rhythm, operative site marked and procedure specific exam findings Recommendations Surgery/Procedure today Coding Level of Care Code Acute 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
[2021-10-08 08:10] VITALS: BP 150/93; PULSE 94; RESP 18; TEMP 36.1; O2SAT 97
[2021-10-08] MEDS: sodium chloride 0.9% 1,000 ML 30 ML IV (08:25)
--- NOTE | 2021-10-08 09:01 | P.ANESASSM_ITS ---
Pre-Anesthetic Assessment Height/Weight: Height 1.52 m Weight 75.75 kg Temp Pulse Resp BP Pulse Ox 97 F L 94 18 150/93 97 10/08/21 08:10 10/08/21 08:10 10/08/21 08:10 10/08/21 08:10 10/08/21 08:10 Preop Diagnosis: Screen h/o polyps Operation Date: 10/08/21 09:00 Proposed Procedures p [id number]/Z86.010(Not Applicable) - Richie Alvarez MD Familial anesthetic complications: None Was Beta Sybil taken within 24 hours: N/A Was Clonidine taken within 24 hours: N/A Last intake: Intake Last Liquid Date 10/07/21 Last Liquid Time 22:00 Last Solid Date 10/06/21 Last Solid Time 21:00 Social No alcohol and No tobacco Exam alert, oriented x 3, clear to auscultation bilaterally and regular rate & rhythm Airway Mallampati: Class II Dentition: full Pulmonary None reported CV/HEM Hypertension Chronic Renal Insufficiency Hepatic fatty liver GI Gastroesophageal Reflux Disease Metabolic Diabetes Mellitus and Hyperlipidemia Neuropsych Neuropathy Anesthetic Plan ASA status: 3 Anesthesia: MAC Risk of > 500 ml blood loss (7ml/kg in children): No Medications/Allergies Home Medications Medication Instructions Recorded Confirmed Last Taken Type cholecalciferol (vitamin D3) 25 25 mcg PO DAILY 02/22/20 10/05/21 10/07/21 History mcg (1,000 unit) tablet (Vitamin D3) esomeprazole magnesium 20 mg 20 mg PO DAILY 02/22/20 10/05/21 10/07/21 History tablet,delayed release fluoxetine 20 mg capsule 20 mg PO DAILY 02/22/20 10/05/21 10/07/21 History loratadine 10 mg tablet 10 mg PO BEDTIME 02/22/20 10/05/21 10/07/21 History metformin 500 mg tablet,extended 1,000 mg PO BID 02/22/20 10/05/21 10/07/21 History release 24 hr omega-3 fatty acids 500 mg capsule 500 mg PO QPM 02/22/20 10/05/21 06/06/21 History simvastatin 40 mg tablet 40 mg PO DAILY 02/22/20 10/05/21 10/07/21 History losartan 50 mg tablet 50 mg PO DAILY 02/27/20 10/05/21 10/07/21 History Aspir-81 81 mg PO DAILY 10/15/20 10/08/21 10/01/21 History bupropion HCl 100 mg tablet 100 mg PO DAILY 10/15/20 10/05/21 10/07/21 History multivitamin 1 tab PO DAILY 10/15/20 10/05/21 10/07/21 History fluticasone propionate 50 50 mcg INTRANASAL BID 06/06/21 10/05/21 06/06/21 History mcg/actuation nasal spray,suspension ofloxacin 0.3 % eye drops 2 drp OTIC (EAR) ONCE PRN #10 ml 06/27/21 10/05/21 10/08/21 Rx tizanidine 2 mg tablet 2 mg PO Q8H PRN 09/05/21 10/05/21 Unknown History flash glucose scanning reader #2 ea 09/13/21 10/04/21 Unknown Rx (FreeStyle [place] 2 [place]) insulin glargine U-300 conc 300 30 unit (0.1 mL) SUBCUT BID 30 09/26/21 10/05/21 10/07/21 Rx unit/mL (3 mL) subcutaneous pen Days #6 ml semaglutide (Ozempic) 0.5 mg (0.4 mL) SUBCUT .Weekly 30 09/26/21 10/05/21 10/01/21 Rx Days #1.5 ml bismuth subsalicylate 262 mg/15 mL 524 mg PO Q30M PRN 10/04/21 10/05/21 Unknown History oral suspension (Pepto-Bismol) calcium carbonate 200 mg calcium 200 mg PO Q4H PRN tab 10/04/21 10/05/21 Unknown History (500 mg) chewable tablet (Tums) zinc amino acid chelate 50 mg 50 mg PO DAILY 10/04/21 10/05/21 10/07/21 History tablet Allergies Allergy/AdvReac Type Severity Reaction Status Date / Time No Known Allergies Allergy Verified 10/05/21 10:04 Current Medications Generic Name Dose Route Start Last Admin Trade Name Freq PRN Reason Stop Dose Admin Sodium Chloride 1,000 mls @ 30 mls/hr 10/08/21 08:00 10/08/21 08:25 Sodium Chloride 0.9% IV 10/09/21 07:59 30 mls/hr .Q24H ARLEEN Administration PFSH Anesthesia Medical History Chronic low back pain CKD (chronic kidney disease) Depression DM type 2 (diabetes mellitus, type 2) GERD (gastroesophageal reflux disease) Hyperlipidemia Hypertension Osteoarthritis Pseudotumor cerebri Surgical History Hx of nasal septoplasty Family History (Updated 10/04/21 @ 09:48 by Cheryl Brown) Other CAD (coronary artery disease) Cancer Diabetes Hypertension Lung disease Stroke Social History Smoking and tobacco status: never smoked Data Anesthesia Cardiac Studies: No Data to Display
[2021-10-08 10:05] VITALS: BP 119/65; PULSE 80; RESP 16; TEMP 36.2; O2SAT 93
[2021-10-08 10:20] VITALS: BP 122/57; PULSE 85; RESP 18; O2SAT 97
--- NOTE | 2021-10-08 16:05 | ANE.PACU2 ---
Inpatient post-anesthesia follow up: Airway intact: Yes Vital signs: Temperature 97.1 F Pulse Rate 85 Respiratory Rate 18 Blood Pressure 122/57 Pulse Oximetry 97 Oxygen Delivery Me thod Room Air Oxygen Flow Rate Fraction of Inspir ed Oxygen Hydration adequate: Yes Nausea and vomiting: No Pain level: 1 Mental status: Baseline
== END 2021-10-08 10:40 | disposition home or self-care (01) ==
PROVIDERS: PCP Internal Medicine; Visit Provider Internal Medicine
PROC: 0DJD8ZZ Inspection of Lower Intestinal Tract, Via Natural or Artificial Opening Endoscopic (ICD-10-PCS; CPT 45378; principal; 2021-10-08 09:00)
DX: Z86.010 Personal history of colon polyps (principal); K57.30 Diverticulosis of large intestine without perforation or abscess without bleeding; Z79.82 Long term (current) use of aspirin; F32.9 Major depressive disorder, single episode, unspecified; K21.9 Gastro-esophageal reflux disease without esophagitis; E78.5 Hyperlipidemia, unspecified; M19.90 Unspecified osteoarthritis, unspecified site; E11.40 Type 2 diabetes mellitus with diabetic neuropathy, unspecified; E11.22 Type 2 diabetes mellitus with diabetic chronic kidney disease; I12.9 Hypertensive chronic kidney disease with stage 1 through stage 4 chronic kidney disease, or unspecified chronic kidney disease; N18.9 Chronic kidney disease, unspecified; Z82.49 Family history of ischemic heart disease and other diseases of the circulatory system; Z83.3 Family history of diabetes mellitus; Z82.3 Family history of stroke
CPT/HCPCS: 45378; J2704; J7030

== ENCOUNTER 2021-11-22 09:41 | Emergency (ER) | payer OTHER, BC, MEDICAID, SELFPAY ==
[2021-11-22] VITALS (8 sets, daily range): BP systolic 122–166; BP diastolic 60–116; PULSE 83–106; RESP 18–22; TEMP 37; O2SAT 95–99; BMI 32.0
--- NOTE | 2021-11-22 09:55 | ECG_ITS ---
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 Measurements Intervals [place]ant Rate: 101 P: 34 GA: 144 QRS: -10 QRSD: 103 T: 54 QT: 334 QTc: 434 Interpretive Statements SINUS TACHYCARDIA POSSIBLE ANTERIOR MYOCARDIAL INFARCTION , OF INDETERMINATE AGE [30 ms Q WAVE IN V3/V4, OR R < 0.2 mV IN V4] Compared to ECG 02/27/2020 15:11:23 Sinus rhythm no longer present Myocardial infarct finding still present Electronically Signed On 11-22-2021 18:40:13 CDT by Wendy Noriega M.D. [id number]
--- NOTE | 2021-11-22 09:55 | XR_ITS ---
WS: [id number] XR chest 1V portable [id number] REASON FOR EXAM: cp FINDINGS: The chest is unchanged compared to 02/27/2020. Normal heart and mediastinum. Calcified granulomatous disease bilaterally. No acute pulmonary parenchymal or pleural abnormality. XR/XR chest 1V portable [id number] IMPRESSION: Stable chest with no acute abnormality.
--- NOTE | 2021-11-22 09:58 | W.ED.CHESTPA ---
HPI - Chest Pain General: Chief Complaint: Chest Pain Stated Complaint: SOB/vomitting Time Seen by Provider: 11/22/21 09:47 Source: patient Mode of arrival: ambulatory Limitations: no limitations History of Present Illness: 56-year-old female states that over the last 2 to 3 days has been having some shortness of breath and is not feeling very well. States she has had body aches along with some chest pain and chest heaviness also had some nausea and vomiting. She denies any fevers. She denies any worsening improving factors. She states her pain currently is a 3 out of 10 denies any radiation of her pain. Associated symptoms: Reports dyspnea and nausea; Deny fever(s) Review of Systems Const: Denies: fever(s), chills, body aches or change in appetite Eyes: Denies: blurry vision or eye discomfort ENMT: Denies: throat pain or dental pain Card: Reports: chest pain Resp: Reports: dyspnea GI: Reports: nausea : Denies: dysuria Musc: Denies: neck pain or back pain Skin/Breast: Denies: rash Neuro: Denies: headache(s) Psych: Denies: depression Damián/Lymph: Denies: easy bruising All/Imm: Denies: urticaria PFSH ED PFSH: Medical History (Updated 11/22/21 @ 13:52 by Radha Marie MD) Bronchitis Chronic low back pain CKD (chronic kidney disease) COVID Depression DM type 2 (diabetes mellitus, type 2) GERD (gastroesophageal reflux disease) Hyperlipidemia Hypertension Osteoarthritis Pseudotumor cerebri Surgical History Hx of nasal septoplasty Family History (Updated 10/04/21 @ 09:48 by Cheryl Brown) Other CAD (coronary artery disease) Cancer Diabetes Hypertension Lung disease Stroke Social History Smoking and tobacco status: never smoked Physical Exam Const: COMMON NORMALS: no acute distress, patient oriented x3 and healthy appearing HENMT: COMMON NORMALS: normocephalic and atraumatic HEAD & SCALP: normocephalic and atraumatic Eye: COMMON NORMALS: Equal, round and reactive pupils present and EOMs intact bilaterally PUPIL: Yes Equal, round and reactive pupils present Neck/C-Spine: COMMON NORMALS: full ROM and supple Chest: COMMONS NORMALS: normal inspection of the chest and normal palpation of entire chest wall Resp: COMMON NORMALS: normal respiratory effort, No retractions, No use of accessory muscles and clear to auscultation bilaterally AUSCULTATION: clear to auscultation bilaterally Cardio: COMMON NORMALS: regular rate, regular rhythm and No murmurs present (Cardio) RATE: regular rate RHYTHM: regular rhythm GI: COMMON NORMALS: Normal to inspection, nondistended, normoactive bowel sounds present, Soft to palpation, non-tender and no masses PALPATION: Yes Soft to palpation Extremity: COMMON NORMALS: normal to inspection and full ROM Neuro: COMMON NORMALS: patient oriented x3, moves all extremities and no focal motor deficits Psych: COMMON NORMALS: mental status grossly normal, Normal thought process present and cooperative THOUGHT PROCESS: Normal thought process present Skin: COMMON NORMALS: no rashes or lesions noted and no wounds GENERAL SKIN EXAM: no rashes or lesions noted Course Vital Signs: Vital signs: Vital Signs Pulse Rate 83 11/22/21 12:00 Respiratory Rate 18 11/22/21 12:00 Blood Pressure 139/82 11/22/21 12:00 Pulse Oximetry 98 11/22/21 12:00 Oxygen Delivery Me thod 11/22/21 12:00 MDM - Chest Pain Medical Decision Making Patient presents here with chest pain that is atypical in nature her initial and repeat troponin are negative her D-dimer is negative as well she feels improved here she is stable for discharge she is to follow-up with PCP and return if worsening she understands agrees to plan. Lab Data : 11/22/21 10:25 11/22/21 10:25 Radiology Impressions Chest X-Ray 11/22/21 09:55 IMPRESSION: Stable chest with no acute abnormality. Laboratory Results WBC 8.4 10^3/uL (4.0-10.0) 11/22/21 10:25 RBC 4.09 10^6/uL (4.1-5.3) L 11/22/21 10:25 Hgb 11.8 g/dL (11.5-15.3) 11/22/21 10:25 Hct 37.5 % (37.0-47.0) 11/22/21 10:25 MCV 91.7 fl (81-99) 11/22/21 10:25 MCH 28.9 pg (28.0-34.0) 11/22/21 10:25 MCHC 31.5 g/dL (30.0-36.0) 11/22/21 10:25 RDW 14.6 % (12.1-15.1) 11/22/21 10:25 Plt Count 252 10^3/cmm (130-400) 11/22/21 10:25 MPV 11.4 fL (7.4-10.4) H 11/22/21 10:25 Neut % (Auto) 59.9 % 11/22/21 10:25 Lymph % (Auto) 29.9 % 11/22/21 10:25 [place] % (Auto) 6.3 % 11/22/21 10:25 Eos % (Auto) 2.9 % 11/22/21 10:25 Baso % (Auto) 0.2 % 11/22/21 10:25 Neut # (Auto) 5.03 10^3/uL (1.8-7.7) 11/22/21 10:25 Lymph # (Auto) 2.5 10^3/uL (0.8-4.8) 11/22/21 10:25 [place] # (Auto) 0.5 10^3/uL (0.2-0.9) 11/22/21 10:25 Eos # (Auto) 0.2 10^3/uL (0.0-0.8) 11/22/21 10:25 Baso # (Auto) 0.0 10^3/uL (0.0-0.1) 11/22/21 10:25 Nucleated RBC % (auto) 0 % 11/22/21 10:25 Nucleated RBCs # 0.0 /100WBC 11/22/21 10:25 D-Dimer <= 0.27 ug/mIFEU (0-0.59) 11/22/21 10:25 Sodium 144 mmol/L (136-145) 11/22/21 10:25 Potassium 3.6 mmol/L (3.5-5.1) 11/22/21 10:25 Chloride 108 mmol/L (98-107) H 11/22/21 10:25 Carbon Dioxide 19 mmol/L (22-29) L 11/22/21 10:25 Anion Gap 20.6 (5-19) H 11/22/21 10:25 BUN 15 mg/dL (6-20) 11/22/21 10:25 Creatinine 0.8 mg/dL (0.5-0.9) 11/22/21 10:25 GFR Calculation 74.2 mL/min (90-130) L 11/22/21 10:25 Glucose 126 mg/dL (65-115) H 11/22/21 10:25 Calculated Osmolality 300 mOsm/kg (285-295) H 11/22/21 10:25 Calcium 9.0 mg/dL (8.5-10.5) 11/22/21 10:25 Total Bilirubin 0.2 mg/dL (0.15-1.2) 11/22/21 10:25 AST 38 U/L (0-32) H 11/22/21 10:25 ALT 27 U/L (0-33) 11/22/21 10:25 Alkaline Phosphatase 74 IU/L (35-105) 11/22/21 10:25 Troponin T Baseline 11 ng/L (0-10) H 11/22/21 10:25 Troponin T 120 Minute 11.84 ng/L (0-10) H 11/22/21 12:52 Delta Troponin T 0.84 ABS# (0-10) 11/22/21 12:52 NT-Pro-B Natriuret Pep 9 pg/mL (0-125) 11/22/21 10:25 Total Protein 6.7 g/dL (6.6-8.7) 11/22/21 10:25 Albumin 4.1 g/dL (3.5-5.2) 11/22/21 10:25 Globulin 2.6 g/dL (1.3-4.6) 11/22/21 10:25 EKG Data EKG 1: I personally reviewed and interpreted this EKG as follows: EKG interpretation date: 11/22/21 EKG interpretation time: 09:50 Interpretation: nsr hr [address] or t wave abnormalities qrs 102 qtc 393 Discharge Plan Discharge Patient Disposition: Home Clinical Impression: Chest pain Condition: Stable Prescriptions: No Action ofloxacin 0.3 % drops 2 drp otic (ear) ONCE PRN (Reason: Tubes in tympanic membranes) Qty: 10 12RF Rx Instructions: Apply 2 drops to each ear after water exposure Ozempic 0.25 mg or 0.5 mg(2 mg/1.5 mL) pen injector 0.5 mg SUBCUT .Weekly 30 Days Qty: 1.5 3RF Rx Instructions: 340 B if needed due to cost. insulin glargine U-300 conc 300 unit/mL (3 mL) insulin pen 30 unit SUBCUT BID 30 Days Qty: 6 3RF Rx Instructions: 340 B if unaffordable. benzonatate 200 mg capsule 200 mg PO BID PRN (Reason: cough) Qty: 20 1RF doxycycline hyclate 100 mg tablet 100 mg PO BID Qty: 20 0RF tizanidine 2 mg tablet 2 mg PO Q8H PRN (Reason: Muscle Spasm) zinc amino acid chelate 50 mg tablet 50 mg PO DAILY bismuth subsalicylate [Pepto-Bismol] 262 mg/15 mL suspension 524 mg PO Q30M PRN (Reason: Diarrhea) Rx Instructions: do not exceed 8 doses in a 24 hour period calcium carbonate [Tums] 200 mg calcium (500 mg) tablet,chewable 200 mg PO Q4H PRN (Reason: Acid Reflux) (DME) FreeStyle Robert 2 Randall Misc See Rx Instructions .Route Qty: 2 3RF Rx Instructions: As directed losartan 50 mg tablet 50 mg PO DAILY Aspir-81 81 mg PO DAILY bupropion HCl 100 mg tablet 100 mg PO DAILY multivitamin 1 tab PO DAILY simvastatin 40 mg Tablet 40 mg PO DAILY fluoxetine 20 mg capsule 20 mg PO DAILY metformin 500 mg tablet extended release 24 hr 1,000 mg PO BID loratadine 10 mg Tablet 10 mg PO BEDTIME cholecalciferol (vitamin D3) [Vitamin D3] 25 mcg (1,000 unit) Tablet 25 mcg PO DAILY omega-3 fatty acids 500 mg Capsule 500 mg PO QPM esomeprazole magnesium 20 mg Tablet,Delayed Release (Dr/Ec) 20 mg PO DAILY Discharge Orders: Discharge ED (Routine); Ordered 11/22/21 Ordered By: Radha Marie Referrals: Filiberto Rutherford DO [Primary Care Provider] - 1-3 days Discharge Diet: Advance as tolerated Discharge Activity: Resume usual activity Patient Instructions: Chest Pain (ED) Coding Level of Care Code ED 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
[2021-11-22] MEDS: morphine 4 mg/mL SDV 1 mL IVP (10:33)
[2021-11-22] MEDS: ondansetron 2 mg/ML SDV 2 mL 4 MG IVP (10:33)
[2021-11-22 10:38] LABS: Basophils % 0.2 %; Eosinophils # 0.2 10^3/uL (0.0-0.8); Eosinophils % 2.9 %; Hematocrit 37.5 % (37.0-47.0); Hemoglobin 11.8 g/dL (11.5-15.3); Lymphocytes # 2.5 10^3/uL (0.8-4.8); Lymphocytes % 29.9 %; Mean Corpuscular HGB Conc 31.5 g/dL (30.0-36.0); Mean Corpuscular Hemoglobin 28.9 pg (28.0-34.0); Mean Corpuscular Volume 91.7 fl (81-99); Mean Platelet Volume 11.4 fL (7.4-10.4); Monocytes # 0.5 10^3/uL (0.2-0.9); Monocytes % 6.3 %; Neutrophils # 5.03 10^3/uL (1.8-7.7); Neutrophils % 59.9 %; Nucleated Red Blood Cells % 0 %; Platelet Count 252 10^3/cmm (130-400); Red Blood Count 4.09 10^6/uL (4.1-5.3); Red Cell Distribution Width 14.6 % (12.1-15.1); White Blood Count 8.4 10^3/uL (4.0-10.0)
[2021-11-22 10:52] LABS: D Dimer <= 0.27 ug/mIFEU (0-0.59)
[2021-11-22 11:09] LABS: Troponin(5th) Baseline 11 ng/L (0-10)
[2021-11-22 11:16] LABS: Alanine Aminotransferase 27 U/L (0-33); Albumin Level 4.1 g/dL (3.5-5.2); Alkaline Phosphatase 74 IU/L (35-105); Anion Gap 20.6 (5-19); Aspartate Amino Transferase 38 U/L (0-32); Blood Urea Nitrogen 15 mg/dL (6-20); Carbon Dioxide 19 mmol/L (22-29); Chloride 108 mmol/L (98-107); Globulin 2.6 g/dL (1.3-4.6); Glomerular Filtration Rate 74.2 mL/min (90-130); Glucose 126 mg/dL (65-115); NT Pro B Type Natriuretic Pept 9 pg/mL (0-125); Osmolality Calculated 300 mOsm/kg (285-295); Potassium 3.6 mmol/L (3.5-5.1); Sodium 144 mmol/L (136-145); Total Bilirubin 0.2 mg/dL (0.15-1.2); Total Protein 6.7 g/dL (6.6-8.7)
--- NOTE | 2021-11-22 11:55 | ECG_ITS ---
[facility] Test Date: 2021-11-22 Pat Name: Sruthi Wright Department: Room: Gender: Female Receiving Inspector: : 1965 Requested By: Radha Marie Order Number: [id number] Reading MD: Wendy Noriega M.D. Measurements Intervals [place] Rate: 99 P: 44 MI: 152 QRS: -11 QRSD: 102 T: 57 QT: 337 QTc: 434 Interpretive Statements SINUS RHYTHM LOW QRS VOLTAGE IN PRECORDIAL LEADS [QRS DEFLECTION < 1.0 mV IN CHEST LEADS] POSSIBLE ANTERIOR MYOCARDIAL INFARCTION , OF INDETERMINATE AGE [30 ms Q WAVE IN V3/V4, OR R < 0.2 mV IN V4] Compared to ECG 02/27/2020 15:11:23 Low QRS voltage now present Myocardial infarct finding still present Electronically Signed On 11-22-2021 18:56:04 CDT by Wendy Noriega M.D. [email or web address]
[2021-11-22 13:47] LABS: Troponin 5 2HR 11.84 ng/L (0-10)
[2021-11-22 13:48] LABS: Troponin 5 2HR Delta 0.84 ABS# (0-10)
== END 2021-11-22 14:11 | disposition home or self-care (01) ==
PROVIDERS: Emergency Provider Emergency Medicine; PCP Internal Medicine
DX: R07.9 Chest pain, unspecified (principal); Z79.82 Long term (current) use of aspirin; Z79.84 Long term (current) use of oral hypoglycemic drugs; Z79.4 Long term (current) use of insulin; E11.9 Type 2 diabetes mellitus without complications; E78.5 Hyperlipidemia, unspecified; I10 Essential (primary) hypertension
CPT/HCPCS: 36415; 71045; 80053; 83880; 84484; 85025; 85378; 93005; 96374; 96375; 99285; J2270; J2405

== ENCOUNTER 2022-04-18 13:46 | Outpatient (CLI) | payer BC, MEDICAID, SELFPAY ==
--- NOTE | 2022-04-18 14:08 | MM_ITS ---
WS: [id number] BILATERAL 3D TOMOSYNTHESIS DIGITAL SCREENING MAMMOGRAPHY WITH CAD CLINICAL INFORMATION: SCREENING HISTORY: Screening mammogram. No current complaints. COMPARISON: 2020 TECHNIQUE: Bilateral CC and MLO views. FINDINGS: Scattered fibroglandular densities bilaterally. No suspicious focal mass, asymmetry, calcifications, or architectural distortion. No evidence of malignancy. Vascular calcification. Incidental punctate c alcifications. MM/[place] [id number] IMPRESSION: BI-RADS: 2-Benign FOLLOW UP: 1 Year Follow-up Recommend return to annual screening mammography.
== END 2022-04-18 13:47 | disposition home or self-care (01) ==
LOC: RAD 13:47
PROVIDERS: PCP Internal Medicine; Visit Provider Internal Medicine
DX: Z12.31 Encounter for screening mammogram for malignant neoplasm of breast (principal)
CPT/HCPCS: 77063; 77067

== ENCOUNTER → 2022-05-01 07:55 | Outpatient (BNVA) | payer BC, MEDICAID, SELFPAY | PROVIDERS: PCP Internal Medicine; Referring Provider Internal Medicine; Visit Provider Specialist | DX: M70.62 Trochanteric bursitis, left hip (principal) | CPT/HCPCS: 73502 ==

== ENCOUNTER 2022-05-02 17:39 | Emergency (ER) | payer BC, MEDICAID, SELFPAY ==
[2022-05-02 17:54] VITALS: BP 191/95; PULSE 103; RESP 16; TEMP 37.3; O2SAT 98
[2022-05-02 18:35] LABS: Basophils % 0.2 %; Eosinophils # 0.1 10^3/uL (0.0-0.8); Eosinophils % 0.7 %; Hematocrit 34.2 % (37.0-47.0); Hemoglobin 10.7 g/dL (11.5-15.3); Lymphocytes # 1.5 10^3/uL (0.8-4.8); Lymphocytes % 17.1 %; Mean Corpuscular HGB Conc 31.3 g/dL (30.0-36.0); Mean Corpuscular Hemoglobin 29.1 pg (28.0-34.0); Mean Corpuscular Volume 92.9 fl (81-99); Mean Platelet Volume 11.2 fL (7.4-10.4); Monocytes # 0.5 10^3/uL (0.2-0.9); Monocytes % 6.4 %; Neutrophils # 6.32 10^3/uL (1.8-7.7); Neutrophils % 74.7 %; Nucleated Red Blood Cells % 0 %; Platelet Count 239 10^3/cmm (130-400); Red Blood Count 3.68 10^6/uL (4.1-5.3); Red Cell Distribution Width 14.3 % (12.1-15.1); White Blood Count 8.5 10^3/uL (4.0-10.0)
[2022-05-02 19:07] LABS: Alanine Aminotransferase 26 U/L (0-33); Albumin Level 4.2 g/dL (3.5-5.2); Alkaline Phosphatase 69 U/L (35-105); Anion Gap 17.2 (5-19); Aspartate Amino Transferase 20 U/L (0-32); Blood Urea Nitrogen 22 mg/dL (6-20); Calcium 9.8 mg/dL (8.5-10.5); Carbon Dioxide 24 mmol/L (22-29); Chloride 100 mmol/L (98-107); Globulin 2.8 g/dL (1.3-4.6); Glomerular Filtration Rate 64.8 mL/min (90-130); Glucose 286 mg/dL (65-115); Osmolality Calculated 298 mOsm/kg (285-295); Potassium 4.2 mmol/L (3.5-5.1); Sodium 137 mmol/L (136-145); Total Bilirubin 0.2 mg/dL (0.15-1.2)
--- NOTE | 2022-05-02 19:12 | W.ED.GENADLT ---
HPI - General Adult General: Chief complaint: General Medical Stated complaint: high Bp and bloodsugar Time Seen by Provider: 05/02/22 19:12 History of Present Illness: 56-year-old female comes in today with complaints of of flushing of the face, some elevation in blood sugar, and elevation in blood pressure. Patient states that her blood pressure has been elevated over the past few days. Patient was seen yesterday by Dr. Beckford and was given a injection of steroids for complaints of hip pain secondary to bursitis. Review of the record noted that the steroid was Kenalog 40 mg. Patient reports noticing some flushing today and some increase in her blood sugar and blood pressure. Patient denies any chest pain or severe headache. Patient appears nontoxic. Patient reports prior to injection she did have a systolic blood pressure of 180. Review of Systems Const: Denies: fever(s) Endo: Reports: other (Increase blood sugar and blood pressure) PFSH ED PFSH: Medical History Bronchitis Chronic low back pain CKD (chronic kidney disease) COVID Depression DM type 2 (diabetes mellitus, type 2) GERD (gastroesophageal reflux disease) Hyperlipidemia Hypertension Osteoarthritis Pseudotumor cerebri Surgical History Hx of nasal septoplasty Family History Other CAD (coronary artery disease) Cancer Diabetes Hypertension Lung disease Stroke Social History Smoking and tobacco status: never smoked Physical Exam Const: COMMON NORMALS: alert HENMT: COMMON NORMALS: normocephalic HEAD & SCALP: normocephalic Neck/C-Spine: COMMON NORMALS: full ROM Resp: COMMON NORMALS: normal respiratory effort and clear to auscultation bilaterally AUSCULTATION: clear to auscultation bilaterally Cardio: COMMON NORMALS: regular rate and regular rhythm RATE: regular rate RHYTHM: regular rhythm Extremity: COMMON NORMALS: no pedal edema Neuro: SENSORIUM/ORIENTATION: Yes alert Skin: NARRATIVE SKIN EXAM: Facial flushing Course Vital Signs: Vital signs: Vital Signs Temperature 99.1 F 05/02/22 17:54 Pulse Rate 92 05/02/22 19:31 Respiratory Rate 12 05/02/22 19:31 Blood Pressure 182/84 05/02/22 19:31 Pulse Oximetry 99 05/02/22 19:31 Oxygen Delivery Me thod 05/02/22 17:54 MDM - General Adult Medical Decision Making 56-year-old female comes in today for adverse effect of the a steroid shot she received yesterday. Patient had increase in blood sugar up to 380, facial flushing, and some increase in blood pressure. On exam we note no swelling in the extremities, heart rate is regular with normal tones, lungs clear to auscultation. Patient had some facial flushing. Differential diagnosis includes adverse drug reaction, allergic reaction, uncontrolled hypertension, hyperglycemia. Laboratory values noted a creatinine of 0. 9, glucose was 286, CBC was unremarkable. No signs of severe illness or distress was noted. Believe patient probably has some adverse effects from the steroid including the flushing and hyperglycemia. Patient also probably has some uncontrolled hypertension but secondary increase in blood pressure may occur with the use of triamcinolone. Patient was given some clonidine 0.1 mg to use twice a day as needed for systolic blood pressures greater than 160. Recommend follow-up with primary care within 1 week for consideration of other treatments or adjustments of medications. Patient reported understanding. Lab Data 05/02/22 18:04 05/02/22 18:04 Laboratory Results WBC 8.5 10^3/uL (4.0-10.0) 05/02/22 18:04 RBC 3.68 10^6/uL (4.1-5.3) L 05/02/22 18:04 Hgb 10.7 g/dL (11.5-15.3) L 05/02/22 18:04 Hct 34.2 % (37.0-47.0) L 05/02/22 18:04 MCV 92.9 fl (81-99) 05/02/22 18:04 MCH 29.1 pg (28.0-34.0) 05/02/22 18:04 MCHC 31.3 g/dL (30.0-36.0) 05/02/22 18:04 RDW 14.3 % (12.1-15.1) 05/02/22 18:04 Plt Count 239 10^3/cmm (130-400) 05/02/22 18:04 MPV 11.2 fL (7.4-10.4) H 05/02/22 18:04 Neut % (Auto) 74.7 % 05/02/22 18:04 Lymph % (Auto) 17.1 % 05/02/22 18:04 [place] % (Auto) 6.4 % 05/02/22 18:04 Eos % (Auto) 0.7 % 05/02/22 18:04 Baso % (Auto) 0.2 % 05/02/22 18:04 Neut # (Auto) 6.32 10^3/uL (1.8-7.7) 05/02/22 18:04 Lymph # (Auto) 1.5 10^3/uL (0.8-4.8) 05/02/22 18:04 [place] # (Auto) 0.5 10^3/uL (0.2-0.9) 05/02/22 18:04 Eos # (Auto) 0.1 10^3/uL (0.0-0.8) 05/02/22 18:04 Baso # (Auto) 0.0 10^3/uL (0.0-0.1) 05/02/22 18:04 Nucleated RBC % (auto) 0 % 05/02/22 18:04 Nucleated RBCs # 0.0 /100WBC 05/02/22 18:04 Sodium 137 mmol/L (136-145) 05/02/22 18:04 Potassium 4.2 mmol/L (3.5-5.1) 05/02/22 18:04 Chloride 100 mmol/L (98-107) 05/02/22 18:04 Carbon Dioxide 24 mmol/L (22-29) 05/02/22 18:04 Anion Gap 17.2 (5-19) 05/02/22 18:04 BUN 22 mg/dL (6-20) H 05/02/22 18:04 Creatinine 0.9 mg/dL (0.5-0.9) 05/02/22 18:04 GFR Calculation 64.8 mL/min (90-130) L 05/02/22 18:04 Glucose 286 mg/dL (65-115) H 05/02/22 18:04 POC Glucose 266 mg/dL (70-110) H 05/02/22 19:11 Calculated Osmolality 298 mOsm/kg (285-295) H 05/02/22 18:04 Calcium 9.8 mg/dL (8.5-10.5) 05/02/22 18:04 Total Bilirubin 0.2 mg/dL (0.15-1.2) 05/02/22 18:04 AST 20 U/L (0-32) 05/02/22 18:04 ALT 26 U/L (0-33) 05/02/22 18:04 Alkaline Phosphatase 69 U/L (35-105) 05/02/22 18:04 Total Protein 7.0 g/dL (6.6-8.7) 05/02/22 18:04 Albumin 4.2 g/dL (3.5-5.2) 05/02/22 18:04 Globulin 2.8 g/dL (1.3-4.6) 05/02/22 18:04 Discharge Plan Discharge Patient Disposition: Home Clinical Impression: Hypertension, Facial flushing, Hyperglycemia Adverse drug effect Qualifiers: Encounter type: initial encounter Qualified Code(s): T50.905A - Adverse effect of unspecified drugs, medicaments and biological substances, initial encounter Condition: Stable Prescriptions: New clonidine HCl 0.1 mg tablet 0.1 mg PO BID PRN (Reason: high blood pressure greater than 160 sys.) Qty: 14 0RF No Action insulin glargine U-300 conc 300 unit/mL (3 mL) insulin pen 30 unit SUBCUT BID 30 Days Qty: 6 3RF Rx Instructions: 340 B if unaffordable. erythromycin 5 mg/gram (0.5 %) ointment 0.5 inch ophthalmic (eye) QID 5 Days Qty: 3.5 0RF zinc amino acid chelate 50 mg tablet 50 mg PO DAILY prednisone 20 mg tablet 20 mg PO DAILY 5 Days Qty: 5 0RF cyclobenzaprine 5 mg tablet 5 mg PO TID PRN (Reason: muscle spasm) Qty: 20 0RF benzonatate 200 mg capsule 200 mg PO BID PRN (Reason: cough) Qty: 60 1RF losartan 50 mg tablet 50 mg PO DAILY Aspir-81 81 mg PO DAILY bupropion HCl 100 mg tablet 100 mg PO DAILY multivitamin 1 tab PO DAILY simvastatin 40 mg Tablet 40 mg PO DAILY fluoxetine 20 mg capsule 20 mg PO DAILY metformin 500 mg tablet extended release 24 hr 1,000 mg PO BID loratadine 10 mg Tablet 10 mg PO BEDTIME cholecalciferol (vitamin D3) [Vitamin D3] 25 mcg (1,000 unit) Tablet 25 mcg PO DAILY omega-3 fatty acids 500 mg Capsule 500 mg PO QPM Discharge Orders: Discharge ED (Routine); Ordered 05/02/22 Ordered By: Kwame Anderson Referrals: Filiberto Rutherford DO [Primary Care Provider] - Discharge Diet: Usual diet Discharge Activity: Increase activity as tolerated Patient Instructions: Hypertension (ED) Activity Restrictions/Additional Instructions: Home and rest. Drink plenty of fluids. Use clonidine 0.1 mg 1 tablet twice a day as needed for elevated blood pressure greater than 160 systolic. Avoid extreme temperatures and spicy foods as this may aggravate flushing more. The flushing should slowly resolve over the next 5 to 7 days. Follow-up with primary care in 1 week for recheck of blood pressure. And consideration of further treatment options. Return to ED for worsening symptoms such as chest pain, increasing shortness of breath, or new concerns. 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
[2022-05-02 19:15] LABS: Glucose Point of Care 266 mg/dL (70-110)
[2022-05-02] MEDS: cloNIDine 0.1 mg Tablet PO (19:30)
[2022-05-02 19:31] VITALS: BP 182/84; PULSE 92; RESP 12; O2SAT 99
== END 2022-05-02 19:37 | disposition home or self-care (01) ==
PROVIDERS: Emergency Medicine; Emergency Provider Nurse Practitioner Family; PCP Internal Medicine
DX: E11.65 Type 2 diabetes mellitus with hyperglycemia (principal); I12.9 Hypertensive chronic kidney disease with stage 1 through stage 4 chronic kidney disease, or unspecified chronic kidney disease; E11.22 Type 2 diabetes mellitus with diabetic chronic kidney disease; N18.9 Chronic kidney disease, unspecified; E78.5 Hyperlipidemia, unspecified; Z79.82 Long term (current) use of aspirin; Z79.84 Long term (current) use of oral hypoglycemic drugs; Z79.4 Long term (current) use of insulin
CPT/HCPCS: 36416; 80053; 82962; 85025; 99283

== ENCOUNTER 2023-03-01 18:36 | Emergency (ER) | payer OTHER, SELFPAY ==
[2023-03-01 18:58] VITALS: BP 165/69; PULSE 89; RESP 17; TEMP 36.5; O2SAT 97; BMI 27.3
[2023-03-01 20:23] LABS: Add Urine Culture? Yes; Add Urine Microscopic? YES; Bacteria Urine 1+ /hpf; Bilirubin Urine Neg (Negative); Blood Urine 3+ (Negative); Glucose Urine UA Norm (Normal); Ketones Urine 1+ (Negative); Leukocyte Esterase Urine 1+ (Negative); Nitrate Urine Positive (Negative); Protein Urine 3+ (Negative); RBC Urine TOO NUMEROUS TO CNT /hpf (0-2); Specific Gravity, Urine 1.015 (1.005-1.030); Urine Appearance Cloudy (CLEAR); Urine Color Brown (Yellow); Urobilinogen Urine 1 mg/dL (Negative); pH Urine 5 (5-7)
[2023-03-01 20:33] VITALS: BP 135/65; PULSE 86; RESP 15; O2SAT 99
--- NOTE | 2023-03-01 21:19 | CTR_ITS ---
PROCEDURE INFORMATION: Exam: CT Abdomen And Pelvis Without Contrast Exam date and time: 03/01/2023 9:56 PM Age: 57 years old Clinical indication: Abdominal pain; Prior surgery; Surgery date: 6+ months; Surgery type: Hysterectomy; Patient HX: C/O bilateral flank pain with hematuria. ; Additional info: Flank pain hematuria TECHNIQUE: Imaging protocol: Computed tomography of the abdomen and pelvis without contrast. Radiation optimization: All CT scans at this facility use at least one of these dose optimization techniques: automated exposure control; mA and/or kV adjustment per patient size (includes targeted exams where dose is matched to clinical indication); or iterative reconstruction. REPORTING DATA: Count of CT and Cardiac NM exams in prior 12 months: This patient has received 0 known CTs and 0 known cardiac nuclear medicine studies in the 12 months prior to the current study. COMPARISON: CT kidney stone [id number] 10/05/2021 12:46 PM RADIATION DOSE METRICS: Total DLP (mGy-cm): 475.86 FINDINGS: Liver: Hepatomegaly versus Henry's lobe. The liver measures 22 cm in length. No focal liver lesion is demonstrated. Gallbladder and bile ducts: No calcified gallstones in the gallbladder. No gallbladder wall thickening. No pericholecystic fluid. No biliary dilatation. Pancreas: Unremarkable. No ductal dilation. Spleen: No focal splenic lesion. No splenomegaly. Adrenal glands: 3.4 cm infrarenal abdominal aortic aneurysm. No leak or rupture. Impression. Kidneys and ureters: Left kidney demonstrates a 2.4 cm cyst with minimal mural calcification, consistent with benign lesion. No solid renal masses are noted on either side. No hydronephrosis. Normal ureters. No obstructive uropathy. Stomach and bowel: Diverticulosis of the colon. No evidence of acute diverticulitis. No acute gastric abnormality demonstrated. The small bowel is unremarkable as demonstrated. Appendix: No evidence of appendicitis. Intraperitoneal space: No free air. No significant fluid collection. Vasculature: The aorta is atherosclerotic. No aortic aneurysm. Lymph nodes: No pathologically enlarged lymph nodes. Urinary bladder: The urinary bladder is unremarkable in appearance. No urinary bladder calculi or masses are identified. Reproductive: Status post hysterectomy. Bones/joints: Unremarkable. No acute osseous abnormality. Soft tissues: Unremarkable. CT/CT kidney stone [id number] IMPRESSION: 1. Left kidney demonstrates a 2.4 cm cyst with minimal mural calcification, consistent with benign lesion. No solid renal masses are noted on either side. No hydronephrosis. Normal ureters. No obstructive uropathy. 2. The urinary bladder is unremarkable in appearance. The source of hematuria is not identified on this study. 3. Hepatomegaly versus Henry's lobe. The liver measures 22 cm in length. No focal liver lesion is demonstrated. 4. Diverticulosis of the colon. No evidence of acute diverticulitis. 5. 3.4 cm infrarenal abdominal aortic aneurysm. No leak or rupture. 6. 3.4 cm infrarenal abdominal aortic aneurysm. No leak or rupture. COMMENTS: Consistent with the [employer]'s Incidental Findings Committee white paper (J Am Ashley Radiol 2018): Any incidental renal lesion less than 1 cm or classified as too small to characterize, or any incidental cystic renal lesion characterized as simple-appearing, is likely benign. No follow-up imaging is recommended for these lesions per consensus recommendations based on imaging criteria.
[2023-03-01 21:51] LABS: Basophils % 0.2 %; Eosinophils # 0.2 10^3/uL (0.0-0.8); Eosinophils % 1.9 %; Hematocrit 32.8 % (36-47); Lymphocytes # 2.7 10^3/uL (0.8-4.8); Lymphocytes % 30.3 %; Mean Corpuscular Hemoglobin 29.7 pg (27-33); Mean Corpuscular Volume 92.9 fl (85-98); Mean Platelet Volume 10.6 fL (7.4-10.4); Monocytes # 0.5 10^3/uL (0.2-0.9); Monocytes % 5.3 %; Neutrophils # 5.48 10^3/uL (1.8-7.7); Neutrophils % 61.8 %; Nucleated Red Blood Cells % 0 %; Platelet Count 274 10^3/cmm (157-399); Red Blood Count 3.53 10^6/uL (3.85-5.65); Red Cell Distribution Width 14.3 % (12.1-15.1); White Blood Count 8.87 10^3/uL (3.29-11.43)
[2023-03-01 22:08] LABS: Alanine Aminotransferase 23 U/L (0-33); Albumin Level 4.6 g/dL (3.5-5.2); Alkaline Phosphatase 63 U/L (35-105); Anion Gap 19.8 (5-19); Aspartate Amino Transferase 25 U/L (0-32); Blood Urea Nitrogen 29 mg/dL (6-20); Calcium 9.6 mg/dL (8.5-10.5); Carbon Dioxide 22 mmol/L (22-29); Chloride 106 mmol/L (98-107); Globulin 2.8 g/dL (1.3-4.6); Glomerular Filtration Rate 35.8 mL/min (90-130); Glucose 124 mg/dL (65-115); Lipase 102 U/L (13-60); Osmolality Calculated 305 mOsm/kg (285-295); Potassium 3.8 mmol/L (3.5-5.1); Sodium 144 mmol/L (136-145); Total Bilirubin 0.4 mg/dL (0.15-1.2); Total Protein 7.4 g/dL (6.6-8.7)
--- NOTE | 2023-03-01 22:34 | W.ED.FEMALGU ---
Documented by User: YAS Sequeira 03/02/23 03:08 HPI - Female Genitourinary General: Chief complaint: Urogenital-Female Stated complaint: lower back pain, possible kidney stone Time Seen by Provider: 03/01/23 21:51 Source: patient Mode of arrival: ambulatory Limitations: no limitations History of Present Illness: Patient presents emergency department today for evaluation treatment of suprapubic pain and dark/bloody urine. Patient was seen and evaluated several days ago by her primary care doctor. Patient was having abdominal pains and was concerned that it could possibly be pancreatitis due to her use of Ozempic however, her evaluation at her primary care office found urinary tract infection which they thought was secondary to a kidney stone.. Patient was started on antibiotics and Flomax. Patient had follow-up with the nurse practitioner several days later and urine was clear. Patient was without pain during that time and thought she had passed her stone and had resolution of infection. Patient had felt better up until today. She states she was walking around the mall in [place] when she began to have suprapubic pain and noticed darkening of her urine. Patient has had worsening pain throughout the evening and darkening of her urine. She also endorses urinary frequency. Patient was post be getting urology follow-up at [facility] but has not heard anything this week regarding a follow-up appointment. Patient has been nauseated but had no vomiting. She complains of low back pain. No fevers. Review of Systems General: Reports: 10 or more systems reviewed and unremarkable except in HPI and below PFSH ED PFSH: Medical History Bronchitis Chronic low back pain CKD (chronic kidney disease) COVID Depression DM type 2 (diabetes mellitus, type 2) GERD (gastroesophageal reflux disease) Hyperlipidemia Hypertension Osteoarthritis Pseudotumor cerebri Surgical History Hx of nasal septoplasty Family History Other CAD (coronary artery disease) Cancer Diabetes Hypertension Lung disease Stroke Social History Smoking and tobacco/nicotine status: never used tobacco/nicotine Substance/Drug Use: never Physical Exam Const: COMMON NORMALS: no acute distress, patient oriented x3 and alert HENMT: COMMON NORMALS: normocephalic, atraumatic, hearing grossly normal bilaterally and moist oral mucous membranes HEAD & SCALP: normocephalic and atraumatic Eye: COMMON NORMALS: Equal, round and reactive pupils present, EOMs intact bilaterally and conjunctivae normal CONJUNCTIVA: Yes conjunctivae normal PUPIL: Yes Equal, round and reactive pupils present Neck/C-Spine: COMMON NORMALS: full ROM and no JVD Lymph: LYMPHATIC: no lymphadenopathy noted Resp: COMMON NORMALS: normal respiratory effort, No retractions, No use of accessory muscles and clear to auscultation bilaterally AUSCULTATION: clear to auscultation bilaterally Cardio: COMMON NORMALS: no JVD, regular rate and regular rhythm RATE: regular rate RHYTHM: regular rhythm OTHER: Tenderness across the low suprapubic region. Abdomen is soft. : COMMON NORMALS: Yes no CVA tenderness BLADDER/KIDNEY EXAM: Yes no CVA tenderness Back/Pelvis: COMMON NORMALS: no CVA tenderness, no thoracic nor lumbar tenderness and thoraco-lumbar ROM normal Extremity: COMMON NORMALS: normal to inspection, full ROM and capillary refill normal Neuro: COMMON NORMALS: patient oriented x3 SENSORIUM/ORIENTATION: Yes alert Psych: COMMON NORMALS: mental status grossly normal, Normal thought process present, cooperative, normal affect and activity/motor behavior normal THOUGHT PROCESS: Normal thought process present Skin: COMMON NORMALS: no rashes or lesions noted and no wounds GENERAL SKIN EXAM: no rashes or lesions noted Course Vital Signs: Vital signs: Vital Signs Temperature 97.7 F 03/01/23 18:58 Pulse Rate 84 03/02/23 00:48 Respiratory Rate 20 H 03/02/23 00:48 Blood Pressure 117/59 03/02/23 00:48 Pulse Oximetry 100 03/02/23 00:48 Oxygen Delivery Me thod Room Air 03/02/23 00:33 MDM - Female Medical Decision Making Patient presented to the emergency department today for concerns of return of kidney stone issues. Patient states that she was seen several days ago and diagnosed with a kidney stone. She was also diagnosed with urinary tract infection was given antibiotics. She had follow-up with the nurse practitioner which showed full resolution of signs of infection on her urine specimen. Also, patient had resolution of pain and was assumed to pass the stone. Patient states that for several days she has been asymptomatic but started having pain again today. She is now also having dark brown urine. CT showed no signs of any kidney stones at this time. Patient's lab work shows acute elevation in creatinine and acute decrease in GFR. Patient's urinalysis also has quite a bit of findings including concerns for blood and protein. At this point, I did discuss with Dr. Hanson and, after reviewing patient's lab work, was concerns for glomerulonephritis and nephrotic syndrome. Patient is on metformin but denied recent strep infection. Patient also denies any known diagnosis of autoimmune disease. After further discussion, Dr. Hanson was willing to continue monitoring and evaluating this patient. He reached out for consult on this patient and determine treatment course including holding losartan, holding metformin, treating for return of urinary tract infection findings. Patient is to follow-up with primary care for recheck of BMP and urinalysis to see if symptoms and abnormal lab findings today have resolved. If not, patient may need to be referred on to nephrology for further evaluation at that time. However, return precautions were given to be seen and reevaluated in the meantime for acute worsening or change in condition. The patient verbalizes understanding and agreement to treatment plan. Differential Diagnosis Likely abdominal pain; Unlikely acute appendicitis, calculus of kidney, constipation, diverticulitis, gastroenteritis, pancreatitis or small bowel obstruction Lab Data 03/01/23 21:42 03/01/23 21:42 Radiology Impressions Abdomen/Pelvis CT 03/01/23 21:19 IMPRESSION: 1. Left kidney demonstrates a 2.4 cm cyst with minimal mural calcification, consistent with benign lesion. No solid renal masses are noted on either side. No hydronephrosis. Normal ureters. No obstructive uropathy. 2. The urinary bladder is unremarkable in appearance. The source of hematuria is not identified on this study. 3. Hepatomegaly versus Henry's lobe. The liver measures 22 cm in length. No focal liver lesion is demonstrated. 4. Diverticulosis of the colon. No evidence of acute diverticulitis. 5. 3.4 cm infrarenal abdominal aortic aneurysm. No leak or rupture. 6. 3.4 cm infrarenal abdominal aortic aneurysm. No leak or rupture. COMMENTS: Consistent with the [employer]'s Incidental Findings Committee white paper (J Am Ashley Radiol 2018): Any incidental renal lesion less than 1 cm or classified as too small to characterize, or any incidental cystic renal lesion characterized as simple-appearing, is likely benign. No follow-up imaging is recommended for these lesions per consensus recommendations based on imaging criteria. Laboratory Results WBC 8.87 10^3/uL (3.29-11.43) 03/01/23 21:42 RBC 3.53 10^6/uL (3.85-5.65) L 03/01/23 21:42 Hgb 10.50 g/dL (11.27-16.99) L 03/01/23 21:42 Hct 32.8 % (36-47) L 03/01/23 21:42 MCV 92.9 fl (85-98) 03/01/23 21:42 MCH 29.7 pg (27-33) 03/01/23 21:42 MCHC 32.0 g/dL (30-55) 03/01/23 21:42 RDW 14.3 % (12.1-15.1) 03/01/23 21:42 Plt Count 274 10^3/cmm (157-399) 03/01/23 21:42 MPV 10.6 fL (7.4-10.4) H 03/01/23 21:42 Neut % (Auto) 61.8 % 03/01/23 21:42 Lymph % (Auto) 30.3 % 03/01/23 21:42 [place] % (Auto) 5.3 % 03/01/23 21:42 Eos % (Auto) 1.9 % 03/01/23 21:42 Baso % (Auto) 0.2 % 03/01/23 21:42 Neut # (Auto) 5.48 10^3/uL (1.8-7.7) 03/01/23 21:42 Lymph # (Auto) 2.7 10^3/uL (0.8-4.8) 03/01/23 21:42 [place] # (Auto) 0.5 10^3/uL (0.2-0.9) 03/01/23 21:42 Eos # (Auto) 0.2 10^3/uL (0.0-0.8) 03/01/23 21:42 Baso # (Auto) 0.0 10^3/uL (0.0-0.1) 03/01/23 21:42 Nucleated RBC % (auto) 0 % 03/01/23 21:42 Nucleated RBCs # 0.0 /100WBC 03/01/23 21:42 Sodium 144 mmol/L (136-145) 03/01/23 21:42 Potassium 3.8 mmol/L (3.5-5.1) 03/01/23 21:42 Chloride 106 mmol/L (98-107) 03/01/23 21:42 Carbon Dioxide 22 mmol/L (22-29) 03/01/23 21:42 Anion Gap 19.8 (5-19) H 03/01/23 21:42 BUN 29 mg/dL (6-20) H 03/01/23 21:42 Creatinine 1.5 mg/dL (0.5-0.9) H 03/01/23 21:42 GFR Calculation 35.8 mL/min (90-130) L 03/01/23 21:42 Glucose 124 mg/dL (65-115) H 03/01/23 21:42 Calculated Osmolality 305 mOsm/kg (285-295) H 03/01/23 21:42 Calcium 9.6 mg/dL (8.5-10.5) 03/01/23 21:42 Total Bilirubin 0.4 mg/dL (0.15-1.2) 03/01/23 21:42 AST 25 U/L (0-32) 03/01/23 21:42 ALT 23 U/L (0-33) 03/01/23 21:42 Alkaline Phosphatase 63 U/L (35-105) 03/01/23 21:42 C-Reactive Protein 3.0 mg/L (0.0-4.9) 03/01/23 21:42 Total Protein 7.4 g/dL (6.6-8.7) 03/01/23 21:42 Albumin 4.6 g/dL (3.5-5.2) 03/01/23 21:42 Globulin 2.8 g/dL (1.3-4.6) 03/01/23 21:42 Lipase 102 U/L (13-60) H 03/01/23 21:42 Urine Color Brown (Yellow) A 03/01/23 19:12 Urine Appearance Cloudy (CLEAR) A 03/01/23 19:12 Urine pH 5 (5-7) 03/01/23 19:12 Ur Specific Chavies 1.015 (1.005-1.030) 03/01/23 19:12 Urine Protein 3+ (Negative) H 03/01/23 19:12 Urine Glucose (UA) Norm (Normal) 03/01/23 19:12 Urine Ketones 1+ (Negative) H 03/01/23 19:12 Urine Blood 3+ (Negative) H 03/01/23 19:12 Urine Nitrate Positive (Negative) H 03/01/23 19:12 Urine Bilirubin Neg (Negative) 03/01/23 19:12 Urine Urobilinogen 1 mg/dL (Negative) H 03/01/23 19:12 Ur Leukocyte Esterase 1+ (Negative) H 03/01/23 19:12 Urine RBC Too numerous to cnt /hpf (0-2) H 03/01/23 19:12 Urine WBC 5-10 /hpf (0-5) H 03/01/23 19:12 Ur Squamous Epith Cells None /hpf (0-5) 03/01/23 19:12 Amorphous Sediment Not Reportable 03/01/23 19:12 Urine Bacteria 1+ /hpf (NONE) H 03/01/23 19:12 All radiology interpretation(s) finalized by discharge Discharge Plan Discharge Patient Disposition: Home Clinical Impression: Urinary tract infection, Hematuria, Protein in urine Condition: Stable Prescriptions: New cefdinir 300 mg capsule 300 mg PO BID Qty: 14 0RF hydrocodone-acetaminophen 5-325 mg tablet 1 tab PO Q8H PRN (Reason: pain) Qty: 7 0RF No Action insulin glargine U-300 conc 300 unit/mL (3 mL) insulin pen 30 unit SUBCUT BID 30 Days Qty: 6 3RF Rx Instructions: 340 B if unaffordable. ofloxacin 0.3 % drops 2 drp otic (ear) ONCE PRN (Reason: Tubes in tympanic membranes) Qty: 10 12RF Rx Instructions: Apply 2 drops to each ear after water exposure azithromycin 500 mg tablet 500 mg PO DAILY 5 Days Qty: 5 0RF Ozempic 0.25 mg or 0.5 mg (2 mg/3 mL) pen injector SUBCUT losartan 50 mg tablet 50 mg PO DAILY Aspir-81 81 mg PO DAILY bupropion HCl 100 mg tablet 100 mg PO DAILY multivitamin 1 tab PO DAILY simvastatin 40 mg Tablet 40 mg PO DAILY fluoxetine 20 mg capsule 20 mg PO DAILY metformin 500 mg tablet extended release 24 hr 1,000 mg PO BID loratadine 10 mg Tablet 10 mg PO BEDTIME cholecalciferol (vitamin D3) [Vitamin D3] 25 mcg (1,000 unit) Tablet 25 mcg PO DAILY omega-3 fatty acids 500 mg Capsule 500 mg PO QPM clonidine HCl 0.1 mg tablet 0.1 mg PO BID PRN (Reason: high blood pressure greater than 160 sys.) Qty: 14 0RF Discharge Orders: Discharge ED (Routine); Ordered 03/02/23 Ordered By: Sagar Hanson Referrals: Celine Grant MD [Primary Care Provider] - 4-7 days Patient Instructions: Urinary Tract Infection in Women (ED), Hematuria (ED), Opioid Safety, Pain Management Activity Restrictions/Additional Instructions: Stop your metformin. Stop your losartan. Monitor your blood pressure closely. Antibiotics for urinary tract infection as directed. Have your urinalysis and kidney function testing repeated in 5 days. See your doctor next week. Return for any concerning symptoms. Coding Level of Care Code ED [employer] for [employer] Documented by User: Sagar Hanson DO 03/02/23 20:47 HPI - Female Genitourinary General: Chief complaint: Urogenital-Female Stated complaint: lower back pain, possible kidney stone Time Seen by Provider: 03/01/23 21:51 PFSH ED PFSH: Medical History Bronchitis Chronic low back pain CKD (chronic kidney disease) COVID Depression DM type 2 (diabetes mellitus, type 2) GERD (gastroesophageal reflux disease) Hyperlipidemia Hypertension Osteoarthritis Pseudotumor cerebri Surgical History Hx of nasal septoplasty Family History Other CAD (coronary artery disease) Cancer Diabetes Hypertension Lung disease Stroke Social History Smoking and tobacco/nicotine status: never used tobacco/nicotine Substance/Drug Use: never Course Vital Signs: Vital signs: Vital Signs Temperature 97.7 F 03/01/23 18:58 Pulse Rate 84 03/02/23 00:48 Respiratory Rate 20 H 03/02/23 00:48 Blood Pressure 117/59 03/02/23 00:48 Pulse Oximetry 100 03/02/23 00:48 Oxygen Delivery Me thod Room Air 03/02/23 00:33 MDM - Female Medical Decision Making Patient presented to the emergency department today for concerns of return of kidney stone issues. Patient states that she was seen several days ago and diagnosed with a kidney stone. She was also diagnosed with urinary tract infection was given antibiotics. She had follow-up with the nurse practitioner which showed full resolution of signs of infection on her urine specimen. Also, patient had resolution of pain and was assumed to pass the stone. Patient states that for several days she has been asymptomatic but started having pain again today. She is now also having dark brown urine. CT showed no signs of any kidney stones at this time. Patient's lab work shows acute elevation in creatinine and acute decrease in GFR. Patient's urinalysis also has quite a bit of findings including concerns for blood and protein. At this point, I did discuss with Dr. Hanson and, after reviewing patient's lab work, was concerns for glomerulonephritis and nephrotic syndrome. Patient is on metformin but denied recent strep infection. Patient also denies any known diagnosis of autoimmune disease. After further discussion, Dr. Hanson was willing to continue monitoring and evaluating this patient. He reached out for consult on this patient and determine treatment course including holding losartan, holding metformin, treating for return of urinary tract infection findings. Patient is to follow-up with primary care for recheck of BMP and urinalysis to see if symptoms and abnormal lab findings today have resolved. If not, patient may need to be referred on to nephrology for further evaluation at that time. However, return precautions were given to be seen and reevaluated in the meantime for acute worsening or change in condition. The patient verbalizes understanding and agreement to treatment plan. Patient originally seen by Mrs. Guerrero PA-C. I agree with her history, evaluation, and treatment. I have seen and evaluated the patient as well. Agree with the above. Lab Data 03/01/23 21:42 03/01/23 21:42 Radiology Impressions Abdomen/Pelvis CT 03/01/23 21:19 IMPRESSION: 1. Left kidney demonstrates a 2.4 cm cyst with minimal mural calcification, consistent with benign lesion. No solid renal masses are noted on either side. No hydronephrosis. Normal ureters. No obstructive uropathy. 2. The urinary bladder is unremarkable in appearance. The source of hematuria is not identified on this study. 3. Hepatomegaly versus Henry's lobe. The liver measures 22 cm in length. No focal liver lesion is demonstrated. 4. Diverticulosis of the colon. No evidence of acute diverticulitis. 5. 3.4 cm infrarenal abdominal aortic aneurysm. No leak or rupture. 6. 3.4 cm infrarenal abdominal aortic aneurysm. No leak or rupture. COMMENTS: Consistent with the [employer]'s Incidental Findings Committee white paper (J Am Ashley Radiol 2018): Any incidental renal lesion less than 1 cm or classified as too small to characterize, or any incidental cystic renal lesion characterized as simple-appearing, is likely benign. No follow-up imaging is recommended for these lesions per consensus recommendations based on imaging criteria. Laboratory Results WBC 8.87 10^3/uL (3.29-11.43) 03/01/23 21:42 RBC 3.53 10^6/uL (3.85-5.65) L 03/01/23 21:42 Hgb 10.50 g/dL (11.27-16.99) L 03/01/23 21:42 Hct 32.8 % (36-47) L 03/01/23 21:42 MCV 92.9 fl (85-98) 03/01/23 21:42 MCH 29.7 pg (27-33) 03/01/23 21:42 MCHC 32.0 g/dL (30-55) 03/01/23 21:42 RDW 14.3 % (12.1-15.1) 03/01/23 21:42 Plt Count 274 10^3/cmm (157-399) 03/01/23 21:42 MPV 10.6 fL (7.4-10.4) H 03/01/23 21:42 Neut % (Auto) 61.8 % 03/01/23 21:42 Lymph % (Auto) 30.3 % 03/01/23 21:42 [place] % (Auto) 5.3 % 03/01/23 21:42 Eos % (Auto) 1.9 % 03/01/23 21:42 Baso % (Auto) 0.2 % 03/01/23 21:42 Neut # (Auto) 5.48 10^3/uL (1.8-7.7) 03/01/23 21:42 Lymph # (Auto) 2.7 10^3/uL (0.8-4.8) 03/01/23 21:42 [place] # (Auto) 0.5 10^3/uL (0.2-0.9) 03/01/23 21:42 Eos # (Auto) 0.2 10^3/uL (0.0-0.8) 03/01/23 21:42 Baso # (Auto) 0.0 10^3/uL (0.0-0.1) 03/01/23 21:42 Nucleated RBC % (auto) 0 % 03/01/23 21:42 Nucleated RBCs # 0.0 /100WBC 03/01/23 21:42 Sodium 144 mmol/L (136-145) 03/01/23 21:42 Potassium 3.8 mmol/L (3.5-5.1) 03/01/23 21:42 Chloride 106 mmol/L (98-107) 03/01/23 21:42 Carbon Dioxide 22 mmol/L (22-29) 03/01/23 21:42 Anion Gap 19.8 (5-19) H 03/01/23 21:42 BUN 29 mg/dL (6-20) H 03/01/23 21:42 Creatinine 1.5 mg/dL (0.5-0.9) H 03/01/23 21:42 GFR Calculation 35.8 mL/min (90-130) L 03/01/23 21:42 Glucose 124 mg/dL (65-115) H 03/01/23 21:42 Calculated Osmolality 305 mOsm/kg (285-295) H 03/01/23 21:42 Calcium 9.6 mg/dL (8.5-10.5) 03/01/23 21:42 Total Bilirubin 0.4 mg/dL (0.15-1.2) 03/01/23 21:42 AST 25 U/L (0-32) 03/01/23 21:42 ALT 23 U/L (0-33) 03/01/23 21:42 Alkaline Phosphatase 63 U/L (35-105) 03/01/23 21:42 C-Reactive Protein 3.0 mg/L (0.0-4.9) 03/01/23 21:42 Total Protein 7.4 g/dL (6.6-8.7) 03/01/23 21:42 Albumin 4.6 g/dL (3.5-5.2) 03/01/23 21:42 Globulin 2.8 g/dL (1.3-4.6) 03/01/23 21:42 Lipase 102 U/L (13-60) H 03/01/23 21:42 Urine Color Brown (Yellow) A 03/01/23 19:12 Urine Appearance Cloudy (CLEAR) A 03/01/23 19:12 Urine pH 5 (5-7) 03/01/23 19:12 Ur Specific [place] 1.015 (1.005-1.030) 03/01/23 19:12 Urine Protein 3+ (Negative) H 03/01/23 19:12 Urine Glucose (UA) Norm (Normal) 03/01/23 19:12 Urine Ketones 1+ (Negative) H 03/01/23 19:12 Urine Blood 3+ (Negative) H 03/01/23 19:12 Urine Nitrate Positive (Negative) H 03/01/23 19:12 Urine Bilirubin Neg (Negative) 03/01/23 19:12 Urine Urobilinogen 1 mg/dL (Negative) H 03/01/23 19:12 Ur Leukocyte Esterase 1+ (Negative) H 03/01/23 19:12 Urine RBC Too numerous to cnt /hpf (0-2) H 03/01/23 19:12 Urine WBC 5-10 /hpf (0-5) H 03/01/23 19:12 Ur Squamous Epith Cells None /hpf (0-5) 03/01/23 19:12 Amorphous Sediment Not Reportable 03/01/23 19:12 Urine Bacteria 1+ /hpf (NONE) H 03/01/23 19:12 Discharge Plan Discharge Patient Disposition: Home Clinical Impression: Urinary tract infection, Hematuria, Protein in urine Condition: Stable Prescriptions: New cefdinir 300 mg capsule 300 mg PO BID Qty: 14 0RF hydrocodone-acetaminophen 5-325 mg tablet 1 tab PO Q8H PRN (Reason: pain) Qty: 7 0RF No Action insulin glargine U-300 conc 300 unit/mL (3 mL) insulin pen 30 unit SUBCUT BID 30 Days Qty: 6 3RF Rx Instructions: 340 B if unaffordable. ofloxacin 0.3 % drops 2 drp otic (ear) ONCE PRN (Reason: Tubes in tympanic membranes) Qty: 10 12RF Rx Instructions: Apply 2 drops to each ear after water exposure azithromycin 500 mg tablet 500 mg PO DAILY 5 Days Qty: 5 0RF Ozempic 0.25 mg or 0.5 mg (2 mg/3 mL) pen injector SUBCUT losartan 50 mg tablet 50 mg PO DAILY Aspir-81 81 mg PO DAILY bupropion HCl 100 mg tablet 100 mg PO DAILY multivitamin 1 tab PO DAILY simvastatin 40 mg Tablet 40 mg PO DAILY fluoxetine 20 mg capsule 20 mg PO DAILY metformin 500 mg tablet extended release 24 hr 1,000 mg PO BID loratadine 10 mg Tablet 10 mg PO BEDTIME cholecalciferol (vitamin D3) [Vitamin D3] 25 mcg (1,000 unit) Tablet 25 mcg PO DAILY omega-3 fatty acids 500 mg Capsule 500 mg PO QPM clonidine HCl 0.1 mg tablet 0.1 mg PO BID PRN (Reason: high blood pressure greater than 160 sys.) Qty: 14 0RF Discharge Orders: Discharge ED (Routine); Ordered 03/02/23 Ordered By: Sagar Hanson Referrals: Celine Grant MD [Primary Care Provider] - 4-7 days Patient Instructions: Urinary Tract Infection in Women (ED), Hematuria (ED), Opioid Safety, Pain Management Activity Restrictions/Additional Instructions: Stop your metformin. Stop your losartan. Monitor your blood pressure closely. Antibiotics for urinary tract infection as directed. Have your urinalysis and kidney function testing repeated in 5 days. See your doctor next week. Return for any concerning symptoms. Coding Level of Care Code ED [employer] for Martín Humphreys
[2023-03-01 23:03] VITALS: BP 151/70; O2SAT 97
[2023-03-01] MEDS: sodium chloride 0.9% 1,000 ML 999 ML IV (23:23)
[2023-03-01] MEDS: ondansetron 2 mg/ML SDV 2 mL 4 MG IVP (23:24)
[2023-03-01 23:27] VITALS: RESP 16
[2023-03-01] MEDS: morphine 4 mg/mL SDV 1 mL IVP (23:27)
[2023-03-02 00:33] VITALS: BP 130/89; O2SAT 99
[2023-03-02 00:48] VITALS: BP 117/59; PULSE 84; RESP 20; O2SAT 100
== END 2023-03-02 00:53 | disposition home or self-care (01) ==
PROVIDERS: Emergency Provider Emergency Medicine; PCP Family Medicine
DX: N39.0 Urinary tract infection, site not specified (principal); R31.9 Hematuria, unspecified; R80.9 Proteinuria, unspecified; Z79.82 Long term (current) use of aspirin; Z79.4 Long term (current) use of insulin; Z79.84 Long term (current) use of oral hypoglycemic drugs; N28.1 Cyst of kidney, acquired; K57.30 Diverticulosis of large intestine without perforation or abscess without bleeding; I71.43 Infrarenal abdominal aortic aneurysm, without rupture; I12.9 Hypertensive chronic kidney disease with stage 1 through stage 4 chronic kidney disease, or unspecified chronic kidney disease; E11.22 Type 2 diabetes mellitus with diabetic chronic kidney disease; N18.9 Chronic kidney disease, unspecified; E78.5 Hyperlipidemia, unspecified
CPT/HCPCS: 36415; 74176; 80053; 81001; 83690; 85025; 86140; 87086; 96361; 96374; 96375; 99285; J2270; J2405; J7030

== ENCOUNTER 2023-03-03 01:59 | Emergency (ER) | payer OTHER, SELFPAY ==
[2023-03-03 02:16] VITALS: BP 175/88; PULSE 76; RESP 25; TEMP 37.1; O2SAT 100; BMI 26.9
[2023-03-03 02:33] VITALS: RESP 25; O2SAT 97
[2023-03-03 02:36] LABS: Basophils % 0.3 %; Eosinophils # 0.2 10^3/uL (0.0-0.8); Eosinophils % 2.4 %; Hematocrit 33.2 % (36-47); Lymphocytes # 1.5 10^3/uL (0.8-4.8); Lymphocytes % 20.4 %; Mean Corpuscular HGB Conc 31.6 g/dL (30-55); Mean Corpuscular Hemoglobin 29.4 pg (27-33); Mean Platelet Volume 10.5 fL (7.4-10.4); Monocytes # 0.4 10^3/uL (0.2-0.9); Monocytes % 5.8 %; Neutrophils % 70.8 %; Nucleated Red Blood Cells % 0 %; Platelet Count 245 10^3/cmm (157-399); Red Blood Count 3.57 10^6/uL (3.85-5.65); Red Cell Distribution Width 13.9 % (12.1-15.1)
--- NOTE | 2023-03-03 02:41 | CTR_ITS ---
PROCEDURE INFORMATION: Exam: CT Abdomen And Pelvis With Contrast Exam date and time: 03/03/2023 3:01 AM Age: 57 years old Clinical indication: Abdominal pain; Prior surgery; Surgery date: 6+ months; Surgery type: Hysterectomy; Patient HX: Persistent left flank pain with hematuria. ; Additional info: Left flank pain, continued hematuria TECHNIQUE: Imaging protocol: Computed tomography of the abdomen and pelvis with contrast. Radiation optimization: All CT scans at this facility use at least one of these dose optimization techniques: automated exposure control; mA and/or kV adjustment per patient size (includes targeted exams where dose is matched to clinical indication); or iterative reconstruction. Contrast material: OMNI 350; Contrast volume: 75 ml; Contrast route: INTRAVENOUS (IV); REPORTING DATA: Count of CT and Cardiac NM exams in prior 12 months: This patient has received [address] and 0 known cardiac nuclear medicine studies in the 12 months prior to the current study. COMPARISON: CT kidney stone [id number] 03/01/2023 9:56 PM RADIATION DOSE METRICS: Total DLP (mGy-cm): 498.73 FINDINGS: Liver: Unremarkable. Gallbladder and bile ducts: No calcified stones. No biliary ductal dilation. No pericholecystic fluid. Pancreas: Unremarkable. No duct dilation. Spleen: Borderline splenomegaly. Adrenal glands: Unremarkable. Kidneys and ureters: Interval descent of previously seen 2 mm left distal ureteral stone, now at the UVJ. Very mild left renal calyceal dilation. No hydroureter. Benign cyst in the left kidney. Stomach and bowel: Duodenal diverticulum noted. Colonic diverticulosis without evidence of acute diverticulitis. Appendix: No evidence of appendicitis. Intraperitoneal space: Unremarkable. No free air. No significant fluid collection. Vasculature: No abdominal aortic aneurysm. Lymph nodes: No enlarged lymph nodes. Urinary bladder: Unremarkable as visualized. Reproductive: Hysterectomy. Bones/joints: No acute fracture. No aggressive osseous lesions. Soft tissues: Unremarkable. CT/CT abdomen pelvis w con* [id number] IMPRESSION: Interval descent of previously seen 2 mm left distal ureteral stone, now at the UVJ. Very mild left renal calyceal dilation. No hydroureter. COMMENTS: Consistent with the [employer]'s Incidental Findings Committee white paper (J Am Ashley Radiol 2018): Any incidental renal lesion less than 1 cm or classified as too small to characterize, or any incidental cystic renal lesion characterized as simple-appearing, is likely benign. No follow-up imaging is recommended for these lesions per consensus recommendations based on imaging criteria.
[2023-03-03] MEDS: ondansetron 2 mg/ML SDV 2 mL 4 MG IVP (02:55)
[2023-03-03 02:56] VITALS: RESP 20; O2SAT 98
[2023-03-03 02:56] LABS: Alanine Aminotransferase 23 U/L (0-33); Albumin Level 4.5 g/dL (3.5-5.2); Alkaline Phosphatase 66 U/L (35-105); Anion Gap 17.3 (5-19); Aspartate Amino Transferase 28 U/L (0-32); Blood Urea Nitrogen 22 mg/dL (6-20); Calcium 9.9 mg/dL (8.5-10.5); Carbon Dioxide 24 mmol/L (22-29); Chloride 104 mmol/L (98-107); Creatine Phosphokinase 80 U/L (26-192); Globulin 2.6 g/dL (1.3-4.6); Glucose 153 mg/dL (65-115); Magnesium 1.8 mg/dL (1.7-2.3); Osmolality Calculated 298 mOsm/kg (285-295); Phosphorus 4.3 mg/dL (2.5-4.5); Potassium 4.3 mmol/L (3.5-5.1); Sodium 141 mmol/L (136-145); Total Bilirubin 0.4 mg/dL (0.15-1.2); Total Protein 7.1 g/dL (6.6-8.7)
[2023-03-03] MEDS: HYDROmorphone 1 mg/mL INJ 1 mL IVP (02:56)
[2023-03-03] MEDS: sodium chloride 0.9% 500 ML 999 ML IV (02:58)
[2023-03-03 03:03] LABS: Add Urine Microscopic? YES; Bilirubin Urine Neg (Negative); Blood Urine 3+ (Negative); Glucose Urine UA Norm (Normal); Ketones Urine 1+ (Negative); Leukocyte Esterase Urine Trace (Negative); Nitrate Urine Negative (Negative); Protein Urine 3+ (Negative); Urine Appearance Cloudy (CLEAR); Urine Color Red (Yellow); Urobilinogen Urine Neg (Negative); pH Urine 5 (5-7)
[2023-03-03 03:04] LABS: Add Urine Culture? Yes; RBC Urine TOO NUMEROUS TO CNT /hpf (0-2)
[2023-03-03] MEDS: iohexol 350 mg/mL 500 mL Btl (per mL) IV (03:04)
[2023-03-03 03:09] LABS: Lactic Sepsis W/Reflex 1.3 mmol/L (0.5-2.2)
[2023-03-03 04:12] VITALS: BP 156/79; O2SAT 93
--- NOTE | 2023-03-03 04:15 | W.ED.FEMALGU ---
HPI - Female Genitourinary General: Chief complaint: Urogenital-Female Stated complaint: possible kidney stones Time Seen by Provider: 03/03/23 02:15 History of Present Illness: 57-year-old female presenting with left flank pain radiating to her groin. She was seen 24 hours or so ago with similar symptoms. She had had pain on the right prior, which had resolved. Symptoms had improved on the previous visit to the ER, and no hydronephrosis or stone was definitely seen on the CT scan on the previous visit. She had blood and protein in her urine, indicating potential nephrotic syndrome. She had a bump in her creatinine as well. She notes that her symptoms were minimal today, and she felt as though she were improving. Around midnight her symptoms returned. She took hydrocodone at home without significant relief. She is nauseated but no vomiting. She is having symptoms of frequency. Her urine looks bloody to her. Associated symptoms: Reports abdominal pain and nausea; Deny headache(s) Review of Systems Const: Denies: fever(s), chills or body aches Eyes: Denies: change in vision Card: Denies: chest pain or palpitations Resp: Denies: dyspnea, productive cough, non-productive cough or wheezing GI: Reports: abdominal pain and nausea; Denies: vomiting, diarrhea or hematochezia : Reports: difficulty voiding, urinary frequency and hematuria Musc: Reports: back pain Skin/Breast: Denies: rash Neuro: Denies: headache(s), weakness in extremities, dizziness or confusion PFSH ED PFSH: Medical History Bronchitis Chronic low back pain CKD (chronic kidney disease) COVID Depression DM type 2 (diabetes mellitus, type 2) GERD (gastroesophageal reflux disease) Hyperlipidemia Hypertension Osteoarthritis Pseudotumor cerebri Surgical History Hx of nasal septoplasty Family History Other CAD (coronary artery disease) Cancer Diabetes Hypertension Lung disease Stroke Social History Smoking and tobacco/nicotine status: never used tobacco/nicotine Substance/Drug Use: never Physical Exam Const: GENERAL APPEARANCE: cooperative and ill appearing (mildly); not frail appearing HENMT: COMMON NORMALS: normocephalic, atraumatic and Normal external nose present HEAD & SCALP: normocephalic and atraumatic FACE & SINUS: normal facial exam and face symmetric NOSE: Normal external nose present Eye: COMMON NORMALS: Equal, round and reactive pupils present and EOMs intact bilaterally PUPIL: Yes Equal, round and reactive pupils present Neck/C-Spine: GENERAL: Yes trachea midline Chest: CHEST: Yes Symmetrical chest wall rise Resp: COMMON NORMALS: normal respiratory effort, No retractions, No use of accessory muscles and clear to auscultation bilaterally AUSCULTATION: clear to auscultation bilaterally Cardio: COMMON NORMALS: regular rate and regular rhythm RATE: regular rate RHYTHM: regular rhythm GI: COMMON NORMALS: Normal to inspection, nondistended, normoactive bowel sounds present PALPATION: Yes Tenderness to palpation present (GI) Details: LLQ : BLADDER/KIDNEY EXAM: Yes CVA tenderness on the left Back/Pelvis: GENERAL BACK: Yes CVA tenderness Extremity: COMMON NORMALS: no pedal edema Neuro: KRISS COMA SCALE: document GCS findings Kriss coma scale eye opening: Spontaneous Kriss coma scale verbal response: Orientated Kriss coma scale motor response: [place]bey commands [place] coma scale total score: 15 SENSORY EXAM: Yes extremities (intact) Psych: COMMON NORMALS: speech normal SPEECH: Yes normal speech Skin: COMMON NORMALS: no rashes or lesions noted GENERAL SKIN EXAM: no rashes or lesions noted Course Vital Signs: Vital signs: Vital Signs Temperature 98.7 F 03/03/23 02:16 Pulse Rate 76 03/03/23 02:16 Respiratory Rate 20 H 03/03/23 02:56 Blood Pressure 122/87 03/03/23 04:48 Pulse Oximetry 99 03/03/23 04:48 Oxygen Delivery Me thod Room Air 03/03/23 04:12 [facility] - Female Medical Decision Making 57-year-old female presenting for the second time this time with left flank pain. Her creatinine is 1.7. Hemoglobin is stable. White blood cell count is normal. She is afebrile. She is not vomiting. CT shows distended the previous kidney stone which is 2 mm to the left distal ureter now at the UVJ. There is very mild left hydronephrosis and no hydroureter. She has essentially cleared the previous urinary tract infection by urinalysis. Urinalysis only shows trace leukocyte Estrace currently. No white blood cells. Given that the stone is 2 mm, has minimal hydronephrosis, and no evidence of infection, she will be discharged. We will increase her pain medication, give her tamsulosin, as well as Toradol. She will continue to strain her urine. Lab Data 03/03/23 02:28 03/03/23 02:28 Radiology Impressions Abdomen/Pelvis CT 03/03/23 02:41 IMPRESSION: Interval descent of previously seen 2 mm left distal ureteral stone, now at the UVJ. Very mild left renal calyceal dilation. No hydroureter. COMMENTS: Consistent with the [employer]'s Incidental Findings Committee white paper (J Am Ashley Radiol 2018): Any incidental renal lesion less than 1 cm or classified as too small to characterize, or any incidental cystic renal lesion characterized as simple-appearing, is likely benign. No follow-up imaging is recommended for these lesions per consensus recommendations based on imaging criteria. Laboratory Results WBC 7.20 10^3/uL (3.29-11.43) 03/03/23 02:28 RBC 3.57 10^6/uL (3.85-5.65) L 03/03/23 02:28 Hgb 10.50 g/dL (11.27-16.99) L 03/03/23 02:28 Hct 33.2 % (36-47) L 03/03/23 02:28 MCV 93.0 fl (85-98) 03/03/23 02:28 MCH 29.4 pg (27-33) 03/03/23 02:28 MCHC 31.6 g/dL (30-55) 03/03/23 02:28 RDW 13.9 % (12.1-15.1) 03/03/23 02:28 Plt Count 245 10^3/cmm (157-399) 03/03/23 02:28 MPV 10.5 fL (7.4-10.4) H 03/03/23 02:28 Neut % (Auto) 70.8 % 03/03/23 02:28 Lymph % (Auto) 20.4 % 03/03/23 02:28 [place] % (Auto) 5.8 % 03/03/23 02:28 Eos % (Auto) 2.4 % 03/03/23 02:28 Baso % (Auto) 0.3 % 03/03/23 02:28 Neut # (Auto) 5.10 10^3/uL (1.8-7.7) 03/03/23 02:28 Lymph # (Auto) 1.5 10^3/uL (0.8-4.8) 03/03/23 02:28 [place] # (Auto) 0.4 10^3/uL (0.2-0.9) 03/03/23 02:28 Eos # (Auto) 0.2 10^3/uL (0.0-0.8) 03/03/23 02:28 Baso # (Auto) 0.0 10^3/uL (0.0-0.1) 03/03/23 02:28 Nucleated RBC % (auto) 0 % 03/03/23 02:28 Nucleated RBCs # 0.0 /100WBC 03/03/23 02:28 Sodium 141 mmol/L (136-145) 03/03/23 02:28 Potassium 4.3 mmol/L (3.5-5.1) 03/03/23 02:28 Chloride 104 mmol/L (98-107) 03/03/23 02:28 Carbon Dioxide 24 mmol/L (22-29) 03/03/23 02:28 Anion Gap 17.3 (5-19) 03/03/23 02:28 BUN 22 mg/dL (6-20) H 03/03/23 02:28 Creatinine 1.7 mg/dL (0.5-0.9) H 03/03/23 02:28 GFR Calculation 31.0 mL/min (90-130) L 03/03/23 02:28 Glucose 153 mg/dL (65-115) H 03/03/23 02:28 Calculated Osmolality 298 mOsm/kg (285-295) H 03/03/23 02:28 Lactic Acid 1.3 mmol/L (0.5-2.2) 03/03/23 02:49 Calcium 9.9 mg/dL (8.5-10.5) 03/03/23 02:28 Phosphorus 4.3 mg/dL (2.5-4.5) 03/03/23 02:28 Magnesium 1.8 mg/dL (1.7-2.3) 03/03/23 02:28 Total Bilirubin 0.4 mg/dL (0.15-1.2) 03/03/23 02:28 AST 28 U/L (0-32) 03/03/23 02:28 ALT 23 U/L (0-33) 03/03/23 02:28 Alkaline Phosphatase 66 U/L (35-105) 03/03/23 02:28 Creatine Kinase 80 U/L (26-192) 03/03/23 02:28 C-Reactive Protein 3.0 mg/L (0.0-4.9) 03/03/23 02:28 Total Protein 7.1 g/dL (6.6-8.7) 03/03/23 02:28 Albumin 4.5 g/dL (3.5-5.2) 03/03/23 02:28 Globulin 2.6 g/dL (1.3-4.6) 03/03/23 02:28 Urine Color Red (Yellow) A 03/03/23 02:38 Urine Appearance Cloudy (CLEAR) A 03/03/23 02:38 Urine pH 5 (5-7) 03/03/23 02:38 Ur Specific [place] 1.020 (1.005-1.030) 03/03/23 02:38 Urine Protein 3+ (Negative) H 03/03/23 02:38 Urine Glucose (UA) Norm (Normal) 03/03/23 02:38 Urine Ketones 1+ (Negative) H 03/03/23 02:38 Urine Blood 3+ (Negative) H 03/03/23 02:38 Urine Nitrate Negative (Negative) 03/03/23 02:38 Urine Bilirubin Neg (Negative) 03/03/23 02:38 Urine Urobilinogen Neg mg/dL (Negative) 03/03/23 02:38 Ur Leukocyte Esterase Trace (Negative) H 03/03/23 02:38 Urine RBC Too numerous to cnt /hpf (0-2) H 03/03/23 02:38 Urine WBC None /hpf (0-5) 03/03/23 02:38 Ur Squamous Epith Cells None /hpf (0-5) 03/03/23 02:38 Amorphous Sediment Not Reportable 03/03/23 02:38 Urine Bacteria None /hpf (NONE) 03/03/23 02:38 All radiology interpretation(s) finalized by discharge Discharge Plan Discharge Patient Disposition: Home Clinical Impression: Ureterolithiasis Condition: Stable Prescriptions: New Percocet 7.5-325 mg tablet 1 tab PO Q6H PRN (Reason: pain) Qty: 10 0RF tamsulosin 0.4 mg capsule 0.4 mg PO DAILY Qty: 10 0RF Discontinued hydrocodone-acetaminophen 5-325 mg tablet 1 tab PO Q8H PRN (Reason: pain) Qty: 7 0RF No Action insulin glargine U-300 conc 300 unit/mL (3 mL) insulin pen 30 unit SUBCUT BID 30 Days Qty: 6 3RF Rx Instructions: 340 B if unaffordable. ofloxacin 0.3 % drops 2 drp otic (ear) ONCE PRN (Reason: Tubes in tympanic membranes) Qty: 10 12RF Rx Instructions: Apply 2 drops to each ear after water exposure azithromycin 500 mg tablet 500 mg PO DAILY 5 Days Qty: 5 0RF Ozempic 0.25 mg or 0.5 mg (2 mg/3 mL) pen injector SUBCUT losartan 50 mg tablet 50 mg PO DAILY Aspir-81 81 mg PO DAILY bupropion HCl 100 mg tablet 100 mg PO DAILY multivitamin 1 tab PO DAILY simvastatin 40 mg Tablet 40 mg PO DAILY fluoxetine 20 mg capsule 20 mg PO DAILY metformin 500 mg tablet extended release 24 hr 1,000 mg PO BID loratadine 10 mg Tablet 10 mg PO BEDTIME cholecalciferol (vitamin D3) [Vitamin D3] 25 mcg (1,000 unit) Tablet 25 mcg PO DAILY omega-3 fatty acids 500 mg Capsule 500 mg PO QPM cefdinir 300 mg capsule 300 mg PO BID Qty: 14 0RF clonidine HCl 0.1 mg tablet 0.1 mg PO BID PRN (Reason: high blood pressure greater than 160 sys.) Qty: 14 0RF Discharge Orders: Discharge ED (Routine); Ordered 03/03/23 Ordered By: Sagar Hanson Referrals: Celine Grant MD [Primary Care Provider] - Patient Instructions: Kidney Stones (ED), Opioid Safety, Pain Management Activity Restrictions/Additional Instructions: Continue your antibiotics. Pain medication as directed. Monitor for fever. Return for worsening pain despite treatment, vomiting liquids or medications, fever greater than 100, other concerning symptoms. Tamsulosin may help you pass the stone sooner. Make sure you are getting plenty of oral liquids. Stand Alone Forms: Work/School Release Coding Level of Care Code ED Per Diem for Martín Humphreys
[2023-03-03] MEDS: ketorolac 30 mg/mL INJ 15 MG IVP (04:45)
[2023-03-03 04:48] VITALS: BP 122/87; O2SAT 99
== END 2023-03-03 04:50 | disposition home or self-care (01) ==
PROVIDERS: Emergency Provider Emergency Medicine; PCP Family Medicine
DX: N20.1 Calculus of ureter (principal); Z79.4 Long term (current) use of insulin; Z79.82 Long term (current) use of aspirin; Z79.84 Long term (current) use of oral hypoglycemic drugs; E11.22 Type 2 diabetes mellitus with diabetic chronic kidney disease; I12.9 Hypertensive chronic kidney disease with stage 1 through stage 4 chronic kidney disease, or unspecified chronic kidney disease; N18.9 Chronic kidney disease, unspecified; E78.5 Hyperlipidemia, unspecified
CPT/HCPCS: 74177; 80053; 81001; 82550; 83605; 83735; 84100; 85025; 86140; 87086; 96374; 96375; 99285; J1170; J1885; J2405; J7040; Q9967

== ENCOUNTER 2023-06-02 11:46 | Outpatient (CLI) | payer OTHER, SELFPAY ==
--- NOTE | 2023-06-02 11:49 | MM_ITS ---
WS: [id number] BILATERAL 3D TOMOSYNTHESIS DIGITAL SCREENING MAMMOGRAPHY WITH CAD CLINICAL INFORMATION: SCREENING HISTORY: Screening mammogram. No current complaints. COMPARISON: 2022 TECHNIQUE: Bilateral CC and MLO views. FINDINGS: Scattered fibroglandular densities bilaterally. No suspicious focal mass, asymmetry, calcifications, or architectural distortion. No evidence of malignancy. Vascular calcification. Incidental punctate c alcifications. IMPRESSION: MM/[place] [id number] BI-RADS: 2-Benign FOLLOW UP: 1 Year Follow-up Recommend return to annual screening mammography.
== END 2023-06-02 11:47 | disposition home or self-care (01) ==
LOC: RAD 11:47
PROVIDERS: PCP Family Medicine; Visit Provider Family Medicine
DX: Z12.31 Encounter for screening mammogram for malignant neoplasm of breast (principal); R92.323 Mammographic fibroglandular density, bilateral breasts
CPT/HCPCS: 77063; 77067

== ENCOUNTER 2023-06-09 11:44 | Emergency (ER) | payer OTHER, SELFPAY ==
[2023-06-09 12:17] LABS: Basophils % 0.3 %; Eosinophils # 0.2 10^3/uL (0.0-0.8); Eosinophils % 3.5 %; Hematocrit 34.8 % (36-47); Lymphocytes # 1.7 10^3/uL (0.8-4.8); Lymphocytes % 26.2 %; Mean Corpuscular HGB Conc 31.3 g/dL (30-55); Mean Corpuscular Hemoglobin 29.5 pg (27-33); Mean Corpuscular Volume 94.3 fl (85-98); Mean Platelet Volume 10.5 fL (7.4-10.4); Monocytes # 0.4 10^3/uL (0.2-0.9); Monocytes % 6.9 %; Neutrophils % 62.8 %; Nucleated Red Blood Cells % 0 %; Platelet Count 195 10^3/cmm (157-399); Red Blood Count 3.69 10^6/uL (3.85-5.65); Red Cell Distribution Width 14.2 % (12.1-15.1); White Blood Count 6.37 10^3/uL (3.29-11.43)
[2023-06-09 12:34] VITALS: BP 123/71; PULSE 89; RESP 16; TEMP 37.1; O2SAT 98; BMI 26.7
[2023-06-09 12:36] LABS: Alanine Aminotransferase 18 U/L (0-33); Albumin Level 4.4 g/dL (3.5-5.2); Alkaline Phosphatase 70 U/L (35-105); Anion Gap 17.9 (5-19); Aspartate Amino Transferase 23 U/L (0-32); Blood Urea Nitrogen 27 mg/dL (6-20); Calcium 9.5 mg/dL (8.5-10.5); Carbon Dioxide 21 mmol/L (22-29); Chloride 104 mmol/L (98-107); Globulin 3.1 g/dL (1.3-4.6); Glomerular Filtration Rate 46.3 mL/min (90-130); Glucose 111 mg/dL (65-115); Lipase 75 U/L (13-60); Osmolality Calculated 294 mOsm/kg (285-295); Potassium 3.9 mmol/L (3.5-5.1); Sodium 139 mmol/L (136-145); Total Bilirubin 0.3 mg/dL (0.15-1.2); Total Protein 7.5 g/dL (6.6-8.7)
--- NOTE | 2023-06-09 12:53 | CT_ITS ---
WS: [id number] CT ABDOMEN AND PELVIS NONCONTRAST HISTORY: left abd pain TECHNIQUE: Imaging performed through the abdomen and pelvis. Coronal and sagittal reformats are submi tted. All CT scans at [facility] use at least one of these dose optimization techniques: auto mated exposure control; mA and/or kV adjustment per patient size (includes targeted exams where dose is matched to clinical indication); or iterative reconstruction. DLP: 455.72 mGy.cm COMPARISON: 03/03/2023 Lower thorax: Lung bases are clear. Visualized heart is normal. No hiatal hernia. Liver: Mild hepatic enlargement. No bile duct dilatation. Gallbladder: Mildly contracted gallbladder with no evidence for acute cholecystitis. Pancreas: Normal size and attenuation. Normal pancreatic duct. No pancreatitis or mass. Spleen: Normal. Adrenal glands: Tiny calcification RIGHT adrenal gland. Mild hyperplasia. Right kidney: Nonobstructing 2 mm calcification renal pelvis. No dilatation of the ureter. Left kidney: No obstruction. Low-attenuation mass from the anterior lower pole LEFT kidney has been p reviously described as a cyst. Aorta: Mild atherosclerosis abdominal aorta with no aneurysm. No free fluid, intraperitoneal air or significant lymphadenopathy. GI tract: Nondistended stomach. There is mild wall thickening which is probably due to under distenti on. No small bowel obstruction. Extensive diffuse diverticula throughout the colon. No acute divertic ulitis is identified. No obstruction or stricture. There is a large diverticulum of the duodenal C-lo op. Normal appendix. Abdominal wall: Negative. No hernia. Pelvis: Prior hysterectomy. No free fluid or adenopathy. Osseous structures: Unremarkable. IMPRESSION: 1. No renal obstruction or ureteral calcification. 2. Stable LEFT renal cyst. 3. Nonobstructing 2 mm calcification RIGHT renal pelvis. 4. Pandiverticulosis without acute diverticulitis. 5. Normal appendix. 6. Mild hepatic enlargement.
--- NOTE | 2023-06-09 12:59 | ED_ITS ---
HPI - Abdominal Pain 2 General: Chief Complaint: Abdominal Pain Stated Complaint: abd pain Time Seen by Provider: 06/09/23 12:42 Source: patient Mode of arrival: ambulatory Limitations: no limitations History of Present Illness: 57-year-old female states that she had s ome diarrhea overnight has been having some left flank and left upper abdomen pain today states to cramping pain. States she has been on Ozempic for months has had abdominal issues with the Ozempic. She states her physician recently changed her from 0.5 to doing 0.25 for a week and then 1.5 for a week she states that yesterday was her first dose of 4.5. Denies any fevers. Associated Symptoms: Reports diarrhea and nausea; Denies chills, dysuria, fever(s) and vomiting Review of Systems 2 Const: Denies: fever(s), chills, body aches or change in appetite ENMT: Denies: throat pain or dental pain Card: Denies: chest pain Resp: Denies: dyspnea GI: Reports: abdominal pain, nausea and diarrhea; Denies: vomiting : Denies: dysuria Musc: Denies: neck pain or back pain Skin/Breast: Denies: rash Neuro: Denies: headache(s) PFSH ED 2 PFSH: Medical History COVID Bronchitis Pseudotumor cerebri Depression Hyperlipidemia Chronic low back pain CKD (chronic kidney disease) Osteoarthritis DM type 2 (diabetes mellitus, type 2) GERD (gastroesophageal reflux disease) Hypertension Surgical History Hx of nasal septoplasty Family History Other CAD (coronary artery disease) Cancer Diabetes Hypertension Lung disease Stroke Social History Smoking and tobacco/nicotine status: never used tobacco/nicotine Substance/Drug Use: never Physical Exam 2 Const: COMMON NORMALS: no acute distress, patient oriented x3 and healthy appearing HENMT: COMMON NORMALS: normocephalic and atraumatic HEAD & SCALP: n ormocephalic and atraumatic Eye: COMMON NORMALS: EOMs intact bilaterally Neck/C-Spine: COMMON NORMALS: full ROM and supple Chest: COMMONS NORMALS: normal inspection of the chest Resp: COMMON NORMALS: normal respiratory effort, No retractions, No use of accessory muscles and clear to auscultation bilaterally AUSCULTATION: clear to auscultation bilaterally Cardio: COMMON NORMALS: regular rate, regular rhythm and No murmurs present (Cardio) RATE: regular rate RHYTHM: regular rhythm GI: COMMON NORMALS: Normal to inspection, nondistended, normoactive bowel sounds present, Soft to palpation, non-tender and no masses PALPATION: Yes Soft to palpation Extremity: COMMON NORMALS: normal to inspection and full ROM Neuro: COMMON NORMALS: patient oriented x3, moves all extremities and no focal motor deficits Psych: COMMON NORMALS: mental status grossly normal, Normal thought process present and cooperative THOUGHT PROCESS: Normal thought process present Skin: COMMON NORMALS: no rashes or lesions noted and no wounds GENERAL SKIN EXAM: no rashes or lesions noted Course 2 Vital Signs: Vital signs: Vital Signs Temperature 98.8 F 06/09/23 12:34 Pulse Rate 89 06/09/23 12:34 Respiratory Rate 17 06/09/23 13:24 Blood Pressure 123/71 06/09/23 12:34 Pulse Oximetry 97 06/09/23 13:24 Oxygen Delivery Me thod Room Air 06/09/23 12:34 MDM - Abdominal Pain Medical Decision Making Patient presents with abdominal pain that is cramping pain in nature with some diarrhea could be her Ozempic former she likely needs to just be on 0.25 mg at all times and does not take 0.5 she does feel improved here CT and blood work is normal she is stable for discharge she is to follow-up with her PCP and return if worsening. Medical Records I reviewed the patient's medical records. Lab Data I reviewed the patient's lab results. 06/09/23 12:11 06/09/23 12:11 Labs/Radiology: Laboratory Results WBC 6.37 10^3/uL (3.29-11.43) 06/09/23 12:11 RBC 3.69 10^6/uL (3.85-5.65) L 06/09/23 12:11 Hgb 10.90 g/dL (11.27-16.99) L 06/09/23 12:11 Hct 34.8 % (36-47) L 06/09/23 12:11 MCV 94.3 fl (85-98) 06/09/23 12:11 MCH 29.5 pg (27-33) 06/09/23 12:11 MCHC 31.3 g/dL (30-55) 06/09/23 12:11 RDW 14.2 % (12.1-15.1) 06/09/23 12:11 Plt Count 195 10^3/cmm (157-399) 06/09/23 12:11 MPV 10.5 fL (7.4-10.4) H 06/09/23 12:11 Neut % (Auto) 62.8 % 06/09/23 12:11 Lymph % (Auto) 26.2 % 06/09/23 12:11 [place] % (Auto) 6.9 % 06/09/23 12:11 Eos % (Auto) 3.5 % 06/09/23 12:11 Baso % (Auto) 0.3 % 06/09/23 12:11 Neut # (Auto) 4.00 10^3/uL (1.8-7.7) 06/09/23 12:11 Lymph # (Auto) 1.7 10^3/uL (0.8-4.8) 06/09/23 12:11 [place] # (Auto) 0.4 10^3/uL (0.2-0.9) 06/09/23 12:11 Eos # (Auto) 0.2 10^3/uL (0.0-0.8) 06/09/23 12:11 Baso # (Auto) 0.0 10^3/uL (0.0-0.1) 06/09/23 12:11 Nucleated RBC % (auto) 0 % 06/09/23 12:11 Nucleated RBCs # 0.0 /100WBC 06/09/23 12:11 Sodium 139 mmol/L (136-145) 06/09/23 12:11 Potassium 3.9 mmol/L (3.5-5.1) 06/09/23 12:11 Chloride 104 mmol/L (98-107) 06/09/23 12:11 Carbon Dioxide 21 mmol/L (22-29) L 06/09/23 12:11 Anion Gap 17.9 (5-19) 06/09/23 12:11 BUN 27 mg/dL (6-20) H 06/09/23 12:11 Creatinine 1.2 mg/dL (0.5-0.9) H 06/09/23 12:11 GFR Calculation 46.3 mL/min (90-130) L 06/09/23 12:11 Glucose 111 mg/dL (65-115) 06/09/23 12:11 Calculated Osmolality 294 mOsm/kg (285-295) 06/09/23 12:11 Calcium 9.5 mg/dL (8.5-10.5) 06/09/23 12:11 Total Bilirubin 0.3 mg/dL (0.15-1.2) 06/09/23 12:11 AST 23 U/L (0-32) 06/09/23 12:11 ALT 18 U/L (0-33) 06/09/23 12:11 Alkaline Phosphatase 70 U/L (35-105) 06/09/23 12:11 Total Protein 7.5 g/dL (6.6-8.7) 06/09/23 12:11 Albumin 4.4 g/dL (3.5-5.2) 06/09/23 12:11 Globulin 3.1 g/dL (1.3-4.6) 06/09/23 12:11 Lipase 75 U/L (13-60) H 06/09/23 12:11 Urine Color Yellow (Yellow) 06/09/23 13:30 Urine Appearance Clear (CLEAR) 06/09/23 13:30 Urine pH 5 (5-7) 06/09/23 13:30 Ur Specific [place] 1.010 (1.005-1.030) 06/09/23 13:30 Urine Protein 1+ (Negative) H 06/09/23 13:30 Urine Glucose (UA) Norm (Normal) 06/09/23 13:30 Urine Ketones Negative (Negative) 06/09/23 13:30 Urine Blood Neg (Negative) 06/09/23 13:30 Urine Nitrate Negative (Negative) 06/09/23 13:30 Urine Bilirubin Neg (Negative) 06/09/23 13:30 Urine Urobilinogen Neg mg/dL (Negative) 06/09/23 13:30 Ur Leukocyte Esterase 1+ (Negative) H 06/09/23 13:30 Urine RBC Rare /hpf (0-2) 06/09/23 13:30 Urine WBC 5-10 /hpf (0-5) H 06/09/23 13:30 Ur Squamous Epith Cells 0-4 /hpf (0-5) H 06/09/23 13:30 Uric Acid Crystals 0-4 /hpf 06/09/23 13:30 Amorphous Sediment Not Reportable 06/09/23 13:30 Urine Bacteria Trace /hpf (NONE) 06/09/23 13:30 Urine Mucus Trace /hpf 06/09/23 13:30 All radiology interpretation(s) finalized by discharge Discharge Plan Discharge Patient Disposition: Home Clinical Impression: Abdominal pain Qualifiers: Abdominal location: generalized Qualified Code(s): R10.84 - Generalized abdominal pain Condition: Stable Prescriptions: New ondansetron 4 mg tablet,disintegrating 4 mg PO Q6H PRN (Reason: nausea and vomiting) Qty: 14 0RF No Action simvastatin 40 mg Tablet 40 mg PO QAM metformin 500 mg tablet extended release 24 hr 500 mg PO BID loratadine 10 mg Tablet 10 mg PO BEDTIME cholecalciferol (vitamin D3) [Vitamin D3] 25 mcg (1,000 unit) Tablet 25 mcg PO QAM omega-3 fatty acids 500 mg Capsule 500 mg PO QPM multivitamin Tablet 1 tab PO QPM fluoxetine 40 mg capsule 40 mg PO QAM bupropion HCl 150 mg tablet sustained-release 12 hr 150 mg PO QAM Aspir-81 81 mg Tablet,Delayed Release (Dr/Ec) 81 mg PO QPM losartan-hydrochlorothiazide 100-25 mg tablet 1 tab PO QAM terbinafine HCl 250 mg tablet 250 mg PO DAILY Flonase 50 mcg/actuation [place],Suspension 2 spray INTRANASAL DAILY PRN (Reason: Allergy Symptoms) Rx Instructions: administer into each nostril Sudafed PE 10 mg Tablet 20 mg PO DAILY PRN (Reason: Sinus Symptoms) Lantus Solostar U-100 Insulin 100 unit/mL (3 mL) insulin pen 10 unit SUBCUT BID Ozempic 0.25 mg or 0.5 mg (2 mg/3 mL) pen injector See Rx Instructions .ROUTE .COMPLEX Rx Instructions: alternates 0.25mg and 0.5mg every 7 days on friday ofloxacin 0.3 % drops 2 drp otic (ear) . DIRECTED PRN (Reason: Tubes in tympanic membranes) Rx Instructions: Apply 2 drops to each ear after water exposure Discharge Orders: Discharge ED (Routine); Ordered 06/09/23 Ordered By: Radha Marie Referrals: Celine Grant MD [Primary Care Provider] - 4-7 days Discharge Diet: Advance as tolerated Discharge Activity: Resume usual activity Patient Instructions: Abdominal Pain (ED) Coding Level of Care Code ED Appraisal Manager for Martín Humphreys
[2023-06-09 13:24] VITALS: RESP 17; O2SAT 97
[2023-06-09] MEDS: morphine 4 mg/mL SDV 1 mL IVP (13:24)
[2023-06-09] MEDS: sodium chloride 0.9% 1,000 ML 999 ML IV (13:25)
[2023-06-09] MEDS: ondansetron 2 mg/ML SDV 2 mL 4 MG IVP (13:25)
--- NOTE | 2023-06-09 13:43 | PC.PHAR ---
pt states she takes care of her own medications-pt states she takes bupropion er (sr)150mg qam ext shows last filled 05/17/23 30d/s 150mg bid-pt states she takes metformin er 500mg bid ext shows last filled 05/19/23 30d/s 1,000mg bid-pt states she alternates on ozempic 0.25mg and 0.5mg q7d-pt states she finished the treatment of the terbinafine 250mg daily about a week ago ext shows last filled 04/30/23 30d/s-
[2023-06-09 14:37] LABS: Bilirubin Urine Neg (Negative); Blood Urine Neg (Negative); Glucose Urine UA Norm (Normal); Ketones Urine Negative (Negative); Nitrate Urine Negative (Negative); Protein Urine 1+ (Negative); Urine Appearance Clear (CLEAR); Urine Color Yellow (Yellow); pH Urine 5 (5-7)
[2023-06-09 14:38] LABS: Add Urine Culture? No; Add Urine Microscopic? YES; Bacteria Urine TRACE /hpf; Leukocyte Esterase Urine 1+ (Negative); Mucus Urine TRACE /hpf; RBC Urine RARE /hpf (0-2); Squamous Epithelial Cell Urine 0-4 /hpf (0-5); Uric Acid Crystals Urine 0-4 /hpf; Urobilinogen Urine Neg (Negative)
== END 2023-06-09 15:01 | disposition home or self-care (01) ==
PROVIDERS: Emergency Provider Emergency Medicine; PCP Family Medicine
DX: R10.84 Generalized abdominal pain (principal); Z79.82 Long term (current) use of aspirin; Z79.84 Long term (current) use of oral hypoglycemic drugs; Z79.4 Long term (current) use of insulin; E78.5 Hyperlipidemia, unspecified; E11.22 Type 2 diabetes mellitus with diabetic chronic kidney disease; I12.9 Hypertensive chronic kidney disease with stage 1 through stage 4 chronic kidney disease, or unspecified chronic kidney disease; N18.9 Chronic kidney disease, unspecified
CPT/HCPCS: 36415; 74176; 80053; 81001; 83690; 85025; 96361; 96374; 96375; 99285; J2270; J2405; J7030

== ENCOUNTER → 2023-07-30 10:59 | Outpatient (BNVA) | payer OTHER, SELFPAY | PROVIDERS: PCP Family Medicine; Visit Provider Registered Nurse Neonatal Intensive Care | DX: R10.9 Unspecified abdominal pain (principal); N39.0 Urinary tract infection, site not specified; A08.4 Viral intestinal infection, unspecified | CPT/HCPCS: 81000; 87086 ==

== ENCOUNTER 2023-10-21 11:28 | Emergency (ER) | payer OTHER, SELFPAY ==
[2023-10-21 11:31] VITALS: BP 124/78; PULSE 84; RESP 18; TEMP 37.2; O2SAT 99; BMI 27.3
[2023-10-21 12:26] LABS: Bilirubin Urine Neg (Negative); Blood Urine Neg (Negative); Glucose Urine UA Norm (Normal); Ketones Urine Negative (Negative); Leukocyte Esterase Urine Negative (Negative); Nitrate Urine Negative (Negative); Protein Urine 1+ (Negative); Specific Gravity, Urine 1.015 (1.005-1.030); Urine Appearance Clear (CLEAR); Urine Color Yellow (Yellow); Urobilinogen Urine Norm (Negative); pH Urine 5 (5-7)
[2023-10-21 12:27] LABS: Add Urine Microscopic? YES
[2023-10-21 12:29] LABS: Add Urine Culture? No; Squamous Epithelial Cell Urine 0-4 /hpf (0-5)
[2023-10-21 12:31] LABS: Basophils % 0.3 %; Eosinophils # 0.2 10^3/uL (0.0-0.8); Eosinophils % 2.2 %; Lymphocytes # 1.6 10^3/uL (0.8-4.8); Lymphocytes % 23.1 %; Mean Corpuscular HGB Conc 32.9 g/dL (30-55); Mean Corpuscular Hemoglobin 30.4 pg (27-33); Mean Corpuscular Volume 92.6 fl (85-98); Mean Platelet Volume 10.7 fL (7.4-10.4); Monocytes # 0.5 10^3/uL (0.2-0.9); Monocytes % 7.4 %; Neutrophils % 66.6 %; Nucleated Red Blood Cells % 0 %; Platelet Count 230 10^3/cmm (157-399); Red Blood Count 3.78 10^6/uL (3.85-5.65); Red Cell Distribution Width 13.4 % (12.1-15.1); White Blood Count 6.76 10^3/uL (3.29-11.43)
[2023-10-21 12:48] LABS: Alanine Aminotransferase 22 U/L (0-33); Albumin Level 4.7 g/dL (3.5-5.2); Alkaline Phosphatase 72 U/L (35-105); Anion Gap 19.2 (5-19); Aspartate Amino Transferase 24 U/L (0-32); Blood Urea Nitrogen 34 mg/dL (6-20); Calcium 9.4 mg/dL (8.5-10.5); Carbon Dioxide 22 mmol/L (22-29); Chloride 102 mmol/L (98-107); Creatinine Clr Calc Pharmacy 36.8856; Globulin 2.9 g/dL (1.3-4.6); Glomerular Filtration Rate 38.8 mL/min (90-130); Glucose 137 mg/dL (65-115); Lipase 87 U/L (13-60); Osmolality Calculated 298 mOsm/kg (285-295); Potassium 4.2 mmol/L (3.5-5.1); Sodium 139 mmol/L (136-145); Total Bilirubin 0.3 mg/dL (0.15-1.2); Total Protein 7.6 g/dL (6.6-8.7)
--- NOTE | 2023-10-21 13:26 | CTR_ITS ---
PROCEDURE INFORMATION: Exam: CT Abdomen And Pelvis Without Contrast Exam date and time: 10/21/2023 1:44 PM Age: 57 years old Clinical indication: Abdominal pain; Flank; Left; Prior surgery; Surgery date: 6+ months; Surgery type: Hyst; Additional info: Left flank pain TECHNIQUE: Imaging protocol: Computed tomography of the abdomen and pelvis without contrast. Radiation optimization: All CT scans at this facility use at least one of these dose optimization techniques: automated exposure control; mA and/or kV adjustment per patient size (includes targeted exams where dose is matched to clinical indication); or iterative reconstruction. COMPARISON: CT kidney stone [id number] 06/09/2023 1:04 PM RADIATION DOSE METRICS: Total DLP (mGy-cm): 499 FINDINGS: Liver: Normal. No mass. Gallbladder and biliary ducts: Normal. No calcified stones. No ductal dilation. Pancreas: Normal. No ductal dilation. Spleen: Normal. No splenomegaly. Adrenal glands: Normal. No mass. Kidneys and ureters: Punctate nonobstructive calcifications both kidneys. Exophytic lower pole cyst left kidney small amount of mural calcification, unchanged. Stomach and bowel: Colonic diverticulosis without evidence of diverticulitis. Appendix: No evidence of appendicitis. Intraperitoneal space: Unremarkable. No free air. No significant fluid collection. Vasculature: Mild aortoiliac atherosclerotic disease. Lymph nodes: Unremarkable. No enlarged lymph nodes. Urinary bladder: Unremarkable as visualized. Reproductive: Previous hysterectomy. Bones/joints: Unremarkable. No acute fracture. Soft tissues: Unremarkable. CT/CT kidney stone [id number] IMPRESSION: No acute findings.
[2023-10-21 13:27] VITALS: BP 122/81; PULSE 83; RESP 18; O2SAT 99
--- NOTE | 2023-10-21 13:27 | ED_ITS ---
HPI - Back Pain/Injury 2 General: Chief Complaint: Back Pain/Injury Stated Complaint: left back pain, abd pain, nausea Time Seen by Provider: 10/21/23 13:22 Source: patient Mode of arrival: ambulatory Limitations: no limitations History of Present Illness: 57-year-old female states she been havin g left flank and back pain over the last 2 days. States been a sharp pain worse with movement and palpation states she concerned she had a history of kidney stones in the past she denies any fever denies any abdominal pain. Associated symptoms: Deny abdominal pain, chills, dysuria, fever(s), nausea or vomiting Review of Systems 2 Const: Denies: fever(s), chills, body aches or change in appetite ENMT: Denies: throat pain or dental pain Card: Denies: chest pain Resp: Denies: dyspnea GI: Denies: abdominal pain, nausea, vomiting or diarrhea : Reports: flank pain; Denies: dysuria Musc: Reports: back pain; Denies: neck pain Skin/Breast: Denies: rash Neuro: Denies: headache(s) PFSH ED 2 PFSH: Medical History COVID Bronchitis Pseudotumor cerebri Depression Hyperlipidemia Chronic low back pain CKD (chronic kidney disease) Osteoarthritis DM type 2 (diabetes mellitus, type 2) GERD (gastroesophageal reflux disease) Hypertension Surgical History Hx of nasal septoplasty Family History Other CAD (coronary artery disease) Cancer Diabetes Hypertension Lung disease Stroke Social History Smoking and tobacco/nicotine status: never used tobacco/nicotine Substance/Drug Use: never Physical Exam 2 Const: COMMON NORMALS: no acute distress, patient oriented x3 and healthy appearing HENMT: COMMON NORMALS: normocephalic and atraumatic HEAD & SCALP: n ormocephalic and atraumatic Neck/C-Spine: COMMON NORMALS: full ROM and supple Chest: COMMONS NORMALS: normal inspection of the chest Resp: COMMON NORMALS: normal respiratory effort, No retractions, No use of accessory muscles and clear to auscultation bilaterally AUSCULTATION: clear to auscultation bilaterally Cardio: COMMON NORMALS: regular rate RATE: regular rate GI: COMMON NORMALS: Normal to inspection, nondistended, normoactive bowel sounds present, Soft to palpation, non-tender and no masses PALPATION: Yes Soft to palpation Back/Pelvis: OTHER: Tenderness to left thoracic region reproduces her pain Extremity: COMMON NORMALS: normal to inspection and full ROM Neuro: COMMON NORMALS: patient oriented x3, moves all extremities and no focal motor deficits Psych: COMMON NORMALS: mental status grossly normal, Normal thought process present and cooperative THOUGHT PROCESS: Normal thought process present Skin: COMMON NORMALS: no rashes or lesions noted and no wounds GENERAL SKIN EXAM: no rashes or lesions noted Course 2 Vital Signs: Vital signs: Vital Signs Temperature 98.9 F 10/21/23 11:31 Pulse Rate 81 10/21/23 14:25 Respiratory Rate 16 10/21/23 14:25 Blood Pressure 123/70 10/21/23 14:25 Pulse Oximetry 98 10/21/23 14:25 Oxygen Delivery Me thod Room Air 10/21/23 14:25 MDM - Back Pain/Injury Medical Decision Making Patient presents here with back pain likely muscular in nature CT shows no signs of kidney stone blood work urinalysis is normal patient stable for discharge she is follow-up with PCP and return if worsening she understands agrees to plan Medical Records I reviewed the patient's medical records. Labs I reviewed the patient's lab results. 10/21/23 12:21 10/21/23 12:21 Radiology Impressions Abdomen/Pelvis CT 10/21/23 13:26 IMPRESSION: No acute findings. Laboratory Results WBC 6.76 10^3/uL (3.29-11.43) 10/21/23 12:21 RBC 3.78 10^6/uL (3.85-5.65) L 10/21/23 12:21 Hgb 11.50 g/dL (11.27-16.99) 10/21/23 12:21 Hct 35.0 % (36-47) L 10/21/23 12:21 MCV 92.6 fl (85-98) 10/21/23 12:21 MCH 30.4 pg (27-33) 10/21/23 12:21 MCHC 32.9 g/dL (30-55) 10/21/23 12:21 RDW 13.4 % (12.1-15.1) 10/21/23 12:21 Plt Count 230 10^3/cmm (157-399) 10/21/23 12:21 MPV 10.7 fL (7.4-10.4) H 10/21/23 12:21 Neut % (Auto) 66.6 % 10/21/23 12:21 Lymph % (Auto) 23.1 % 10/21/23 12:21 [place] % (Auto) 7.4 % 10/21/23 12:21 Eos % (Auto) 2.2 % 10/21/23 12:21 Baso % (Auto) 0.3 % 10/21/23 12:21 Neut # (Auto) 4.50 10^3/uL (1.8-7.7) 10/21/23 12:21 Lymph # (Auto) 1.6 10^3/uL (0.8-4.8) 10/21/23 12:21 [place] # (Auto) 0.5 10^3/uL (0.2-0.9) 10/21/23 12:21 Eos # (Auto) 0.2 10^3/uL (0.0-0.8) 10/21/23 12:21 Baso # (Auto) 0.0 10^3/uL (0.0-0.1) 10/21/23 12:21 Nucleated RBC % (auto) 0 % 10/21/23 12:21 Nucleated RBCs # 0.0 /100WBC 10/21/23 12:21 Sodium 139 mmol/L (136-145) 10/21/23 12:21 Potassium 4.2 mmol/L (3.5-5.1) 10/21/23 12:21 Chloride 102 mmol/L (98-107) 10/21/23 12:21 Carbon Dioxide 22 mmol/L (22-29) 10/21/23 12:21 Anion Gap 19.2 (5-19) H 10/21/23 12:21 BUN 34 mg/dL (6-20) H 10/21/23 12:21 Creatinine 1.4 mg/dL (0.5-0.9) H 10/21/23 12:21 GFR Calculation 38.8 mL/min (90-130) L 10/21/23 12:21 Glucose 137 mg/dL (65-115) H 10/21/23 12:21 Calculated Osmolality 298 mOsm/kg (285-295) H 10/21/23 12:21 Calcium 9.4 mg/dL (8.5-10.5) 10/21/23 12:21 Total Bilirubin 0.3 mg/dL (0.15-1.2) 10/21/23 12:21 AST 24 U/L (0-32) 10/21/23 12:21 ALT 22 U/L (0-33) 10/21/23 12:21 Alkaline Phosphatase 72 U/L (35-105) 10/21/23 12:21 Total Protein 7.6 g/dL (6.6-8.7) 10/21/23 12:21 Albumin 4.7 g/dL (3.5-5.2) 10/21/23 12:21 Globulin 2.9 g/dL (1.3-4.6) 10/21/23 12:21 Lipase 87 U/L (13-60) H 10/21/23 12:21 Urine Color Yellow (Yellow) 10/21/23 11:56 Urine Appearance Clear (CLEAR) 10/21/23 11:56 Urine pH 5 (5-7) 10/21/23 11:56 Ur Specific [place] 1.015 (1.005-1.030) 10/21/23 11:56 Urine Protein 1+ (Negative) H 10/21/23 11:56 Urine Glucose (UA) Norm (Normal) 10/21/23 11:56 Urine Ketones Negative (Negative) 10/21/23 11:56 Urine Blood Neg (Negative) 10/21/23 11:56 Urine Nitrate Negative (Negative) 10/21/23 11:56 Urine Bilirubin Neg (Negative) 10/21/23 11:56 Urine Urobilinogen Norm mg/dL (Negative) 10/21/23 11:56 Ur Leukocyte Esterase Negative (Negative) 10/21/23 11:56 Urine RBC None /hpf (0-2) 10/21/23 11:56 Urine WBC None /hpf (0-5) 10/21/23 11:56 Ur Squamous Epith Cells 0-4 /hpf (0-5) H 10/21/23 11:56 Amorphous Sediment Not Reportable 10/21/23 11:56 Urine Bacteria None /hpf (NONE) 10/21/23 11:56 Urine Mucus None /hpf 10/21/23 11:56 All radiology interpretation(s) finalized by discharge Discharge Plan Discharge Patient Disposition: Home Clinical Impression: Thoracic back pain Condition: Stable Prescriptions: New methocarbamol 750 mg tablet 750 mg PO Q6H PRN (Reason: spasms) Qty: 20 0RF Naprosyn 500 mg tablet 500 mg PO BID PRN (Reason: pain) Qty: 20 0RF No Action ondansetron 4 mg tablet,disintegrating 4 mg PO Q8H PRN (Reason: nausea and vomiting) Qty: 20 0RF simvastatin 40 mg Tablet 40 mg PO QAM metformin 500 mg tablet extended release 24 hr 500 mg PO BID loratadine 10 mg Tablet 10 mg PO BEDTIME cholecalciferol (vitamin D3) [Vitamin D3] 25 mcg (1,000 unit) Tablet 25 mcg PO QAM multivitamin Tablet 1 tab PO QPM fluoxetine 40 mg capsule 40 mg PO QAM bupropion HCl 150 mg tablet sustained-release 12 hr 150 mg PO BID aspirin [Aspir-81] 81 mg Tablet,Delayed Release (Dr/Ec) 81 mg PO QPM losartan-hydrochlorothiazide 100-25 mg tablet 1 tab PO QAM fluticasone propionate [Flonase] 50 mcg/actuation [place],Suspension 2 spray INTRANASAL DAILY PRN (Reason: Allergy Symptoms) Rx Instructions: administer into each nostril phenylephrine HCl [Sudafed PE] 10 mg Tablet 20 mg PO DAILY PRN (Reason: Sinus Symptoms) insulin glargine [Lantus Solostar U-100 Insulin] 100 unit/mL (3 mL) insulin pen 10 unit SUBCUT BID ofloxacin 0.3 % drops 2 drp otic (ear) . DIRECTED PRN (Reason: Tubes in tympanic membranes) Rx Instructions: Apply 2 drops to each ear after water exposure [place] 2.5 mg/0.5 mL pen injector 2.5 mg SUBCUT Q7D Discharge Orders: Discharge ED (Routine); Ordered 10/21/23 Ordered By: Radha Marie Referrals: Celine Grant MD [Primary Care Provider] - 4-7 days Discharge Diet: Advance as tolerated Discharge Activity: Resume usual activity Patient Instructions: Back Pain (ED) Coding Level of Care Code ED Senior Bioinformatics Scientist for Martín Humphreys
[2023-10-21] MEDS: ondansetron 2 mg/ML SDV 2 mL 4 MG IVP (13:35)
[2023-10-21] MEDS: morphine 4 mg/mL SDV 1 mL IVP (13:35)
[2023-10-21 14:25] VITALS: BP 123/70; PULSE 81; RESP 16; O2SAT 98
[2023-10-21 14:45] VITALS: BP 123/70; PULSE 81; RESP 16; O2SAT 98
== END 2023-10-21 14:46 | disposition home or self-care (01) ==
PROVIDERS: Emergency Provider Emergency Medicine; PCP Family Medicine
DX: M54.6 Pain in thoracic spine (principal); Z79.82 Long term (current) use of aspirin; Z79.4 Long term (current) use of insulin; Z79.84 Long term (current) use of oral hypoglycemic drugs; Z79.85 Long-term (current) use of injectable non-insulin antidiabetic drugs; E78.5 Hyperlipidemia, unspecified; E11.22 Type 2 diabetes mellitus with diabetic chronic kidney disease; I12.9 Hypertensive chronic kidney disease with stage 1 through stage 4 chronic kidney disease, or unspecified chronic kidney disease; N18.9 Chronic kidney disease, unspecified
CPT/HCPCS: 36415; 74176; 80053; 81001; 83690; 85025; 96374; 96375; 99284; J2270; J2405

== ENCOUNTER 2024-06-04 07:42 | Outpatient (CLI) | payer OTHER, SELFPAY ==
--- NOTE | 2024-06-04 07:46 | MM_ITS ---
WS: [id number] BILATERAL SCREENING DIGITAL TOMOSYNTHESIS MAMMOGRAM WITH CAD HISTORY: SCREENING COMPARISON: 06/02/2023, 04/18/2022 and 10/22/2019 Bilateral CC and MLO views with tomosynthesis and synthetic mammography submitted. Computer aided detection analyzed. Breast composition: There are scattered areas of fibroglandular density. No suspicious masses, microcalcifications or architectural distortion. Vascular calcifications in each breast. There are a few additional small benign-appearing calcifications. MM/MM scr tomosynthesis [id number] IMPRESSION: BI-RADS: 2 - Benign. FOLLOW UP: 1 Year Follow-up
== END 2024-06-04 07:43 | disposition home or self-care (01) ==
PROVIDERS: PCP Family Medicine; Visit Provider Family Medicine
DX: Z12.31 Encounter for screening mammogram for malignant neoplasm of breast (principal); R92.323 Mammographic fibroglandular density, bilateral breasts; R92.1 Mammographic calcification found on diagnostic imaging of breast
CPT/HCPCS: 77063; 77067